=== PATIENT | female | born 1940 | race Caucasian/White ===

== ENCOUNTER 2017-08-18 21:20 | Emergency (ER) | payer MEDICARE, OTHER, SELFPAY | END 2017-08-19 00:16 | disposition home or self-care (01) | PROVIDERS: Emergency Provider Emergency Medicine; Family Provider Internal Medicine Adolescent Medicine; Visit Provider Emergency Medicine | DX: J18.1 Lobar pneumonia, unspecified organism (principal); F17.210 Nicotine dependence, cigarettes, uncomplicated; Z79.899 Other long term (current) drug therapy; I10 Essential (primary) hypertension; E78.5 Hyperlipidemia, unspecified; J44.9 Chronic obstructive pulmonary disease, unspecified; Z88.0 Allergy status to penicillin; Z88.6 Allergy status to analgesic agent | CPT/HCPCS: 71010; 80053; 82550; 82553; 84484; 85025; 87070; 87205; 93005; 96365; 96367; 96374; 96375; 99284; J1956 ==

== ENCOUNTER 2017-10-22 14:05 | Emergency (ER) | payer MEDICARE, OTHER, SELFPAY ==
[2017-10-22 14:16] VITALS: BP 140/55; PULSE 81; RESP 20; TEMP 36.7; O2SAT 95; BMI 18.4
--- NOTE | 2017-10-22 14:27 | XR_ITS ---
XR chest 2V HISTORY: ITS.REASON: prod cough ORDERING PHYSICIAN: ElisaShaunna Salcedo PATIENT AGE: 77 years COMPARISON: 08/18/2017 FINDINGS: The cardiomediastinal silhouette and pulmonary vascularity are within normal limits. Previously noted pneumonia within the lingula has shown improvement with some minimal residual density present in the lingula. There is now patchy infiltrate in the right perihilar region felt to be in the right middle lobe anteriorly. Parenchymal opacity is present in the left apex as well and has developed since the previous exam. There is a small right pleural effusion. No acute bony anomalies. IMPRESSION: 1. Right middle lobe pneumonia with small right effusion. 2. Improving lingular pneumonia. 3. Nonspecific parenchymal opacity left apex which could be due to an area of infiltrate or even developing nodule or scar. Follow-up recommended. If this persists, CT may be needed for further evaluation
[2017-10-22 14:45] LABS: Basophils % 0.3 % (0.1-2.0); Eosinophils # 0.1 K/mm3 (0.0-0.4); Eosinophils % 0.9 % (0.1-12.0); Hematocrit 35.4 % (37.0-47.0); Hemoglobin 11.7 g/dL (12.2-16.2); Lymphocytes # 1.3 K/mm3 (0.7-4.5); Lymphocytes % 15.4 K/mm3 (10-50); Mean Corpuscular Hemoglobin 28.8 pg (27.0-31.2); Mean Platelet Volume 8.3 fl (7.4-10.4); Monocytes # 0.5 K/mm3 (0.1-1.0); Neutrophils # 6.4 K/mm3 (1.8-7.8); Neutrophils % 77.5 % (37.0-80.0); Platelet Count 174 K/mm3 (142-424); Red Blood Count 4.06 M/mm3 (4.20-5.40); Red Cell Distribution Width 13.9 % (11.5-17.5); White Blood Count 8.3 K/mm3 (4.8-10.8)
--- NOTE | 2017-10-22 15:01 | HMH.EDGENADL ---
ED Disposition Clinical Impression: Pneumonia, community acquired Qualifiers: Laterality: right Lung location: lower lobe of lung Qualified Code(s): J18.1 - Lobar pneumonia, unspecified organism Disposition: Home, Self-Care Condition on Discharge: Good Instructions: DI for Pneumonia -- Adult Additional Instructions: Continue oxygen and nebulizer treatments at home. Additional instructions for PNEUMONIA: See your physician as soon as possible for further evaluation. Return immediately if you have an uncontrollable fever greater than 102 degrees, difficulty breathing or shortness of breath, persistent vomiting, or severe chest pain. Prescriptions: Benzonatate [Tessalon Perle 100mg Cap] 100 mg PO TIDP PRN #20 cap PRN Reason: Cough levoFLOXacin [Levaquin 750mg tablet] 750 mg PO DAILY #5 tab Referrals: Provider,Referral, MD [Primary Care Provider] - (see your primary care provider in 2 days) - Critical Care Critical Care Time: No Attestation: On 10/22/17, the high probability of a clinically significant, sudden or life threatening deterioration of the following system(s) required my full and direct attention, intervention and personal management. The time I documented below is in addition to time spent performing reported procedures but includes the following listed in this critical care notation. Medical Decision Making Vital Signs: 10/22/17 14:16 10/22/17 15:32 Temperature 98.0 F Temperature Source Oral Pulse Rate [Right Brachial] 81 77 Respiratory Rate 20 20 Blood Pressure [Right Arm] 140/55 118/75 Blood Pressure Mean [Right Arm] 83 89 Blood Pressure Source [Right Arm] Automatic Cuff Automatic Cuff Blood Pressure Position [Right Arm] Sitting Sitting 02 Sat by Pulse Oximetry 95 97 Oxygen Delivery Method Room Air Nasal Cannula Oxygen Flow Rate (LPM) 2 - Lab Data Lab results reviewed: Yes: I reviewed the patient's lab results. Lab Results 10/22/17 14:25: WBC 8.3, RBC 4.06 L, Hgb 11.7 L, Hct 35.4 L, MCV 87.0, MCH 28.8, MCHC 33.0, RDW 13.9, Plt Count 174, MPV 8.3, Neut % (Auto) 77.5, Lymph % (Auto) 15.4, Bucks % (Auto) 6.0, Eos % (Auto) 0.9, Baso % (Auto) 0.3, Neut # (Auto) 6.4, Lymph # (Auto) 1.3, Bucks # (Auto) 0.5, Eos # (Auto) 0.1, Baso # (Auto) 0.0 10/22/17 14:25: Sodium 136, Potassium 3.5, Chloride 99, Carbon Dioxide 29, Anion Gap 11.5, BUN 19 H, Creatinine 1.30 H, Estimated Creat Clear 31, Estimated GFR 40 L, Est GFR ( Amer) 48 L, Glucose 127 H, Calcium 8.6, Total Bilirubin 0.5, AST 22, ALT 29, Alkaline Phosphatase 131 H, Total Protein 7.3, Albumin 2.9 L, Globulin 4.4 H, Albumin/Globulin Ratio 0.7 L 10/22/17 14:25: Influenza Type A Ag Negative, Influenza Type B Ag Negative 10/22/17 14:25: Lactic Acid 0.8 Result diagrams: 10/22/17 14:25 10/22/17 14:25 Orders (Tests/Meds): ED MEDICATIONS Generic Name Dose Route Start Last Admin Trade Name Freq PRN Reason Stop Dose Admin Sodium Chloride 1,000 mls @ 999 mls/hr 10/22/17 15:00 10/22/17 14:56 Sod Chlor 0.9% 1000ml Bag IV 10/22/17 16:00 999 mls/hr .Q1H1M ROSELINE Administration Levofloxacin/Dextrose 750 mg in 150 mls @ 100 mls/hr 10/22/17 15:13 10/22/17 15:31 Levofloxacin 750mg/150ml Premix IV 10/22/17 16:42 100 mls/hr ONCE ONE Administration Protocol Discontinued Medications Generic Name Dose Route Start Last Admin Trade Name Freq PRN Reason Stop Dose Admin Sodium Chloride 500 mls @ 999 mls/hr 10/22/17 14:30 10/22/17 14:52 Sod Chlor 0.9% 1000ml Bag IV 10/22/17 15:00 Not Given .Q31M ROSELINE Sodium Chloride 500 mls @ 999 mls/hr 10/22/17 15:00 10/22/17 14:54 Sod Chlor 0.9% 1000ml Bag IV 10/22/17 15:30 Not Given .Q31M ROSELINE ORDERS Category Date Time Status Chest XR 2 view (NOT portable) [XR chest 2V] Stat Exams 10/22/17 14:27 Taken - Radiology Data #1 Image(s): Chest Image Reviewed: Yes I reviewed the patient's radiology results Patchy infiltrate right mid to l
[2017-10-22 15:03] LABS: Albumin Level 2.9 gm/dL (3.4-5.0); Blood Urea Nitrogen 19 mg/dL (7-18); Calcium 8.6 mg/dL (8.5-10.1); Creatinine Clearance Estimated 31 mL/min (0-300); Estimated Glomerular Filt Rate 40 ml/min (>60); GFR (African American) 48 ML/MIN (>60); Glucose 127 mg/dL (74-106)
[2017-10-22 15:04] LABS: Lactic Acid 0.8 mmol/L (0.4-2.0)
[2017-10-22 15:13] LABS: Alanine Aminotransferase 29 U/L (12-78); Albumin/Globulin Ratio 0.7 (1.1-1.8); Alkaline Phosphatase 131 U/L (46-116); Anion Gap 11.5 mEq/L (5-15); Aspartate Amino Transferase 22 U/L (15-37); Bilirubin,Total 0.5 mg/dL (0.2-1.0); Carbon Dioxide 29 mmol/L (21.0-32.0); Chloride 99 mmol/L (98-107); Globulin 4.4 gm/dl (1.3-3.2); Potassium 3.5 mmoL/L (3.5-5.1); Sodium 136 mmol/L (136-145); Total Protein,Serum 7.3 gm/dL (6.4-8.2)
[2017-10-22 15:32] VITALS: BP 118/75; PULSE 77; RESP 20; O2SAT 97
[2017-10-22 16:45] VITALS: BP 112/59; PULSE 73; RESP 20; TEMP 36.9; O2SAT 95
== END 2017-10-22 16:46 | disposition home or self-care (01) ==
LOC: UTC 14:15 → ER 14:16
PROVIDERS: Emergency Medicine; Emergency Provider Nurse Practitioner; Family Provider Internal Medicine Adolescent Medicine
DX: J18.1 Lobar pneumonia, unspecified organism (principal); Z88.6 Allergy status to analgesic agent; Z88.4 Allergy status to anesthetic agent; Z88.0 Allergy status to penicillin
CPT/HCPCS: 71046; 80053; 83605; 85025; 87275; 87276; 96365; 96367; 99284; J1956

== ENCOUNTER → 2017-11-11 10:33 | Outpatient (POV) | payer MEDICARE, OTHER, SELFPAY ==
--- NOTE | 2017-11-11 10:57 | XR_ITS ---
XR ribs RT min 3V w CXR1V HISTORY: Left-sided rib pain ITS.REASON: THORACIC BACK PAIN ORDERING PHYSICIAN: Sagar Ospina MD PATIENT AGE: 77 years COMPARISON: None FINDINGS: A frontal view of the chest shows changes of COPD. Coronary artery stent is present. Previously described pneumonia in the right lower lobe and left upper lobe have improved with some residual density in the right lung base medially nonspecific. No displaced rib fractures are evident. No destructive process. IMPRESSION: No acute finding of the left ribs
--- NOTE | 2017-11-11 10:58 | XR_ITS ---
EXAM: XR thoracic spine 3V HISTORY: ITS.REASON: THORACIC BACK PAIN COMPARISON: None FINDINGS: Normal alignment. No fracture or dislocation. No lytic or blastic change. There are mild degenerative changes of the midthoracic spine with slight decrease in the disc spaces and minimal osteophyte formation. There is minimal lower thoracic curvature convex right. IMPRESSION: 1. No acute finding. 2. Mild changes of the thoracic spine
[2017-11-11 11:24] LABS: Thyroid Stimulating Hormone 4.02 uIU/ml (0.358-3.740)
== END ==
PROVIDERS: Family Provider Internal Medicine Adolescent Medicine; Visit Provider Internal Medicine
DX: E03.9 Hypothyroidism, unspecified (principal); M54.6 Pain in thoracic spine; R07.81 Pleurodynia
CPT/HCPCS: 36415; 71101; 72072; 84443

== ENCOUNTER → 2017-11-21 12:37 | Outpatient (CLI) | payer MEDICARE, OTHER, SELFPAY ==
[2017-11-21 13:41] VITALS: PULSE 77; PULSE 81
[2017-11-21 14:31] VITALS: BP 125/66; BP 142/88; PULSE 72; PULSE 73; RESP 16; RESP 18; O2SAT 85; O2SAT 93
== END ==
PROVIDERS: Family Provider Internal Medicine Adolescent Medicine; PCP Internal Medicine Adolescent Medicine; Visit Provider Internal Medicine
DX: R06.02 Shortness of breath (principal); R91.8 Other nonspecific abnormal finding of lung field; J43.9 Emphysema, unspecified
CPT/HCPCS: 94060; 94618; 94640; 94726; 94729

== ENCOUNTER → 2017-11-24 10:30 | Outpatient (POV) | payer MEDICARE, OTHER, SELFPAY ==
[2017-11-24 10:45] VITALS: BP 137/53; PULSE 71; RESP 22; O2SAT 97; BMI 17.8
--- NOTE | 2017-11-24 12:11 | HMH.PMCON ---
Assessment and Plan (1) Sacroiliitis Current visit: Yes Status: Chronic Category: Medical Code(s): M46.1 - Sacroiliitis, not elsewhere classified (2) Thoracic back pain Current visit: Yes Status: Chronic Category: Medical Code(s): M54.6 - Pain in thoracic spine - Assessment and plan all Dx Assessment and Plan for all problems:: We will plan a right SI joint injection for this patient I believe that that would be beneficial for her. Patient unable to take medications at this time for her pain. We will also order a thoracic MRI to discern pathology of her thoracic back pain. I will follow-up with this patient after her injection or her MRI which ever comes first. This note was dictated using voice recognition software and may contain errors or omissions HPI - Data of Consult Consult date: 11/24/17 Requesting Physician: Dorita De Luna APRN Primary Care Provider: Tone Mensah MD Family Provider: Tone Mensah MD - Consult Narrative Reason for consult: Thoracic back pain and right hip pain History of present illness: Ms. Steve is a 77 year old female presents today for consult regarding her thoracic back pain in her right hip pain. Patient rates her pain a 4 out of 10 today. Patient states that her pain is in her mid back and happened after receiving antibiotics in a rehab facility in 2017. Patient states movement and inspiration makes it worse well nothing really decreases it. Patient states she does have some numbness and tingling in her left hand. Patient is not on any medication for the pain at this time. Patient has emphysema and COPD. She is still current smoker. Patient does have oxygen at home. Patient understands that medication increases her risks of her respiratory depression and she is interested in another modalities of treatment. Patient has not had an MRI of her thoracic spine. Patient does have extreme tenderness on palpation of her thoracic spine. Patient also has right SI joint pain. Patient states it does radiate into her leg at times. Patient has trouble sitting and standing for long periods of time. CC: Dorita De Luna APRN [facility] History I have reviewed the patient's past medical history: Yes Medical History: Reports:: Hyperlipidemia, Palpitations Denies:: Cancer, Diabetes Mellitus Type 1, Diabetes Mellitus Type 2 Other Medical History: Reports: Thyroid Disease Other Surgeries: Yes: Appendectomy, Thyroidectomy, Other (hysterectomy, cholecystectomy) Amputation: No - *Social History Educational Level: Completed High School Smoking Status: Current every day smoker Tobacco Type: cigarettes # Packs/Day (cigarettes): 1 Alcohol Intake: never Occupational Status: retired Housing: house - Psychiatric History Expresses thoughts of harming self/others: None Suicide Plan Description: No Plan *Family Hx:: Coronary Artery Disease, Heart Attack, Hypertension Review of Systems - Review of Systems ROS General: no recent weight change, no fever, no sleep disturbances Respiratory: Cough at times, history of recurring pulmonary infections Cardiovascular/Peripheral Vascular: No chest pain, No palpitations, no edema, no shortness of breath. Gastrointestinal: no new onset incontinence, normal bowel movements reported Genitourinary: no new onset incontinence Musculoskeletal: Thoracic back pain, right SI joint pain Psychiatric: normal mood/ affect, [denies depression], [denies anxiety] Neurological: [denies weakness in extremities], [denies balance issues] Meds Home Medications Medication Instructions Recorded Confirmed Type Levothyroxine Sodium 75 mcg PO DAILY 10/22/17 10/22/17 History [Levothyroxine 75mcg (0.075mg) Tab] Metoprolol Tartrate 50 mg PO DAILY 10/22/17 10/22/17 History Sertraline HCl [Zoloft 50mg tablet] 50 mg PO BID 10/22/17 10/22/17 History raNITIdine HCl [Zantac] 150 mg PO BID 10/22/17 10/22/17 History Atorvastatin Calcium [Atorva
--- NOTE | 2017-11-24 12:14 | P.CONS_ITS ---
Assessment and Plan (1) Sacroiliitis Current visit: Yes Status: Chronic Category: Medical Code(s): M46.1 - Sacroiliitis, not elsewhere classified (2) Thoracic back pain Current visit: Yes Status: Chronic Category: Medical Code(s): M54.6 - Pain in thoracic spine - Assessment and plan all Dx Assessment and Plan for all problems:: We will plan a right SI joint injection for this patient I believe that that would be beneficial for her. Patient unable to take medications at this time for her pain. We will also order a thoracic MRI to discern pathology of her thoracic back pain. I will follow-up with this patient after her injection or her MRI which ever comes first. This note was dictated using voice recognition software and may contain errors or omissions HPI - Data of Consult Consult date: 11/24/17 Requesting Physician: Dorita De Luna APRN Primary Care Provider: Tone Mensah MD Family Provider: Tone Mensah MD - Consult Narrative Reason for consult: Thoracic back pain and right hip pain History of present illness: Ms. Steve is a 77 year old female presents today for consult regarding her thoracic back pain in her right hip pain. Patient rates her pain a 4 out of 10 today. Patient states that her pain is in her mid back and happened after receiving antibiotics in a rehab facility in 2017. Patient states movement and inspiration makes it worse well nothing really decreases it. Patient states she does have some numbness and tingling in her left hand. Patient is not on any medication for the pain at this time. Patient has emphysema and COPD. She is still current smoker. Patient does have oxygen at home. Patient understands that medication increases her risks of her respiratory depression and she is interested in another modalities of treatment. Patient has not had an MRI of her thoracic spine. Patient does have extreme tenderness on palpation of her thoracic spine. Patient also has right SI joint pain. Patient states it does radiate into her leg at times. Patient has trouble sitting and standing for long periods of time. CC: Dorita De Luna APRN [facility] History I have reviewed the patient's past medical history: Yes Medical History: Reports:: Hyperlipidemia, Palpitations Denies:: Cancer, Diabetes Mellitus Type 1, Diabetes Mellitus Type 2 Other Medical History: Reports: Thyroid Disease Other Surgeries: Yes: Appendectomy, Thyroidectomy, Other (hysterectomy, cholecystectomy) Amputation: No - *Social History Educational Level: Completed High School Smoking Status: Current every day smoker Tobacco Type: cigarettes # Packs/Day (cigarettes): 1 Alcohol Intake: never Occupational Status: retired Housing: house - Psychiatric History Expresses thoughts of harming self/others: None Suicide Plan Description: No Plan *Family Hx:: Coronary Artery Disease, Heart Attack, Hypertension Review of Systems - Review of Systems ROS General: no recent weight change, no fever, no sleep disturbances Respiratory: Cough at times, history of recurring pulmonary infections Cardiovascular/Peripheral Vascular: No chest pain, No palpitations, no edema, no shortness of breath. Gastrointestinal: no new onset incontinence, normal bowel movements reported Genitourinary: no new onset incontinence Musculoskeletal: Thoracic back pain, right SI joint pain Psychiatric: normal mood/ affect, [denies depression], [denies anxiety] Neurological: [denies weakness in extremities], [denies balance issues] Meds
== END ==
PROVIDERS: Family Provider Internal Medicine Adolescent Medicine; PCP Internal Medicine Adolescent Medicine; Visit Provider Clinical Nurse Specialist Family Health
DX: M46.1 Sacroiliitis, not elsewhere classified (principal); M54.6 Pain in thoracic spine
CPT/HCPCS: 99202

== ENCOUNTER → 2017-11-26 15:49 | Outpatient (CLI) | payer MEDICARE, OTHER, SELFPAY ==
--- NOTE | 2017-11-26 15:52 | MR_ITS ---
MR thoracic spine wo con Ordering Physician: Rene Carballo MD Patient Age: 77 years: Female HISTORY: ITS.REASON: THORACIC BACK PAIN TECHNIQUE: Sagittal T1, T2, STIR. Axial T1 and T2 imaging through selected portions of mid and lower T-spine COMPARISON : FINDINGS The thoracic vertebral bodies show no compression fracture nor significant lesion. There are some scattered high signal areas at the vertebral bodies compatible with small meningioma formation. Most notable at the superior and inferior T12 level., With Each of these measuring 9 mm size . Upper T-spine unremarkable from C7/T1 down to T3/4 level. T4/5: small central disc protrusion likely yields the mildly elongated midline epidural density, which most likely reflects a mild disc protrusion. On axial images at this level this feature does focal indent the anterior aspect of the thecal sac at midline & just abuts and may very slightly flatten the anterior margin of the thoracic cord at this level.. T5-T6: suggestion of a small mixed disc protrusion to the right... This is more evident on axial views barely evident on sagittal slice 6.. April 2017 also shows a small spur to the right at this level which demonstrates that this is is mainly hard disc with small spur.. T6/7.. Minimal spurring just distal just superior to the tiny disc disc protrusion just to left of midline axial images. Negligible on sagittal view. However the CT chest from April 2017 shows the minimal spur at the left at this level as well C7/T8. Mild disc space narrowing but no protrusion T8/9 question scant disc bulge to the left. Negligible. Barely evident. T9-10. Disc intact unremarkable. T10-11. Question Subtle disc bulge to the left. Very minor as suggested on axial images. T11/12. Disc intact. T12/L1 disc intact. Only scant facet arthropathy towards the lower T-spine. Negligible. Thoracic cord appears normal in caliber and signal. ====IMPRESSION====== 1. No compression fracture nor No prominent findings . 2. There are Minimal Degenerative Disc observations:. Most notable is small central protrusion at T4/5 This small central disc protrusion at T 4/5 yields mild elongated midline epidural density,. Which slightly indents thecal sac at midline .T5/6. Tiny barely appreciable spur with tiny mixed hard disc right paracentral. Very minimal. . T6/7 minimal spur just to left of midline associated with a tiny mixed disc protrusion.. This mildly indents thecal sac to left. T6/7 (minor posterior spur seen on previous Apr 2017 CT chest) ... T8/9 perhaps Scant trace disc bulge the left.. Negligible
== END ==
PROVIDERS: Family Provider Internal Medicine Adolescent Medicine; PCP Internal Medicine Adolescent Medicine; Visit Provider Anesthesiology
DX: M54.6 Pain in thoracic spine (principal)
CPT/HCPCS: 72146

== ENCOUNTER → 2017-12-30 09:46 | Outpatient (POV) | payer MEDICARE, OTHER, SELFPAY ==
[2017-12-30 10:39] VITALS: BP 111/50; PULSE 69; RESP 18; TEMP 36.6; O2SAT 98; BMI 17.2
--- NOTE | 2017-12-30 10:55 | HMH.PAINSOAP ---
[facility] Pain Management SOAP Note Subjective:: Patient is a pleasant 77-year-old white female who presents today for follow-up after right SI joint. Patient states that she had 80% relief. Patient states he does have some residual pain. Patient states that this is the first time she is able to go upstairs in two years. Patient is unable to take NSAIDS due to allergies. Patient has tried physical therapy and continues to do home stretching exercises. ROS General: no recent weight change, no fever, no sleep disturbances Respiratory: no cough, no shortness of air, no recurring pulmonary infections Cardiovascular/Peripheral Vascular: No chest pain, No palpitations, no edema, no shortness of breath. Gastrointestinal: no incontinence, normal bowel movements reported Genitourinary: no incontinence Musculoskeletal: Back pain, right SI joint pain Psychiatric: normal mood/ affect, [denies depression], [denies anxiety] Neurological: [denies weakness in extremities], [denies balance issues] Objective:: Physical Exam General: Alert and oriented x3, no acute distress, pleasant and cooperative, [on room air] Lungs: Resps E/U, Symmetrical chest expansion, Eyes: PERRL Musculoskeletal: Flexion and extension of lumbar spine somewhat guarded secondary to pain, deep tendon reflexes normal, strength in upper and lower extremities [5/5], [abnormal gait noted], positive Harris's test on the right side, extreme point tenderness over right SI joint Neurological: speech clear, development coach equal, no gross sensory deficits Assessment:: Right sacroiliitis Plan:: We will schedule a repeat right SI joint injection. Given the benefit that she received from the last one I believe that this may be helpful. Patient is unable to take NSAIDs due to allergies. Patient's tried and failed medications, stretching, physical therapy. Patient continues to be active. I will up with her after her second SI joint injection. This note was dictated using voice recognition software and may contain errors or omissions
--- NOTE | 2017-12-30 10:58 | P.CONS_ITS ---
[facility] Pain Management SOAP Note Subjective:: Patient is a pleasant 77-year-old white female who presents today for follow-up after right SI joint. Patient states that she had 80% relief. Patient states he does have some residual pain. Patient states that this is the first time she is able to go upstairs in two years. Patient is unable to take NSAIDS due to allergies. Patient has tried physical therapy and continues to do home stretching exercises. ROS General: no recent weight change, no fever, no sleep disturbances Respiratory: no cough, no shortness of air, no recurring pulmonary infections Cardiovascular/Peripheral Vascular: No chest pain, No palpitations, no edema, no shortness of breath. Gastrointestinal: no incontinence, normal bowel movements reported Genitourinary: no incontinence Musculoskeletal: Back pain, right SI joint pain Psychiatric: normal mood/ affect, [denies depression], [denies anxiety] Neurological: [denies weakness in extremities], [denies balance issues] Objective:: Physical Exam General: Alert and oriented x3, no acute distress, pleasant and cooperative, [ on room air] Lungs: Resps E/U, Symmetrical chest expansion, Eyes: PERRL Musculoskeletal: Flexion and extension of lumbar spine somewhat guarded secondary to pain, deep tendon reflexes normal, strength in upper and lower extremities [5/5], [abnormal gait noted], positive Harris's test on the right side, extreme point tenderness over right SI joint Neurological: speech clear, marketing sales supervisor equal, no gross sensory deficits Assessment:: Right sacroiliitis Plan:: We will schedule a repeat right SI joint injection. Given the benefit that she received from the last one I believe that this may be helpful. Patient is unable to take NSAIDs due to allergies. Patient's tried and failed medications , stretching, physical therapy. Patient continues to be active. I will up with her after her second SI joint injection. This note was dictated using voice recognition software and may contain errors or omissions
== END ==
PROVIDERS: Family Provider Internal Medicine Adolescent Medicine; PCP Internal Medicine Adolescent Medicine; Visit Provider Clinical Nurse Specialist Family Health
DX: M46.1 Sacroiliitis, not elsewhere classified (principal)
CPT/HCPCS: 99212

== ENCOUNTER → 2018-01-26 09:27 | Outpatient (POV) | payer MEDICARE, OTHER, SELFPAY ==
[2018-01-26 09:47] VITALS: BP 124/58; PULSE 72; RESP 18; O2SAT 99; BMI 18.0
--- NOTE | 2018-01-26 10:27 | HMH.PAINSOAP ---
[facility] Pain Management SOAP Note Subjective:: Patient is a pleasant 77-year-old white female who presents today after right SI joint injection. Patient states that she is doing quite well after this however patient has had a recent outbreak of shingles on her right buttock cheek. Patient has active blisters noted. Patient is not on any antivirals. Patient does have pain in her low back and down both of her legs. Patient is not on any gabapentin. Patient states she has taken in the past and had no side effects to it. ROS General: no recent weight change, no fever, no sleep disturbances Respiratory: no cough, no shortness of air, no recurring pulmonary infections Cardiovascular/Peripheral Vascular: No chest pain, No palpitations, no edema, no shortness of breath. Gastrointestinal: no incontinence, normal bowel movements reported Genitourinary: no incontinence Musculoskeletal: Low back pain, bilateral leg pain Skin: Active blisters noted on right buttock Psychiatric: normal mood/ affect Neurological: [denies weakness in extremities], [denies balance issues] Objective:: Physical Exam General: Alert and oriented x3, no acute distress, pleasant and cooperative, [on room air] Lungs: Resps E/U, Symmetrical chest expansion, Eyes: PERRL Musculoskeletal: Flexion and extension of lumbar spine somewhat guarded secondary to pain, deep tendon reflexes normal, strength in upper and lower extremities [5/5], [abnormal gait noted] Skin: Active blisters noted right buttock Neurological: speech clear, framing mechanic equal, no gross sensory deficits Assessment:: Shingles, degenerative disc disease of lumbar spine with lumbar radiculopathy Plan:: We will start the patient on acyclovir 100 mg 1 p.o. 5 times a day, gabapentin 100 mg twice daily. We will schedule her for an L5-S1 lumbar epidural steroid injection to help with the blisters. I will follow-up with the patient after her injection. We will reassess her symptoms at that time. This note was dictated using voice recognition software and may contain errors or omissions
--- NOTE | 2018-01-26 10:30 | P.CONS_ITS ---
[facility] Pain Management SOAP Note Subjective:: Patient is a pleasant 77-year-old white female who presents today after right SI joint injection. Patient states that she is doing quite well after this however patient has had a recent outbreak of shingles on her right buttock cheek. Patient has active blisters noted. Patient is not on any antivirals. Patient does have pain in her low back and down both of her legs. Patient is not on any gabapentin. Patient states she has taken in the past and had no side effects to it. ROS General: no recent weight change, no fever, no sleep disturbances Respiratory: no cough, no shortness of air, no recurring pulmonary infections Cardiovascular/Peripheral Vascular: No chest pain, No palpitations, no edema, no shortness of breath. Gastrointestinal: no incontinence, normal bowel movements reported Genitourinary: no incontinence Musculoskeletal: Low back pain, bilateral leg pain Skin: Active blisters noted on right buttock Psychiatric: normal mood/ affect Neurological: [denies weakness in extremities], [denies balance issues] Objective:: Physical Exam General: Alert and oriented x3, no acute distress, pleasant and cooperative, [ on room air] Lungs: Resps E/U, Symmetrical chest expansion, Eyes: PERRL Musculoskeletal: Flexion and extension of lumbar spine somewhat guarded secondary to pain, deep tendon reflexes normal, strength in upper and lower extremities [5/5], [abnormal gait noted] Skin: Active blisters noted right buttock Neurological: speech clear, 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 5 times a day, gabapentin 100 mg twice daily. We will schedule her for an L5-S1 lumbar epidural steroid injection to help with the blisters. I will follow-up with the patient after her injection. We will reassess her symptoms at that time. This note was dictated using voice recognition software and may contain errors or omissions
== END ==
PROVIDERS: Family Provider Internal Medicine Adolescent Medicine; PCP Internal Medicine Adolescent Medicine; Visit Provider Clinical Nurse Specialist Family Health
DX: B02.9 Zoster without complications (principal); M54.16 Radiculopathy, lumbar region
CPT/HCPCS: 99212

== ENCOUNTER → 2018-02-06 09:35 | Outpatient (POV) | payer MEDICARE, OTHER, SELFPAY ==
[2018-02-06 09:53] VITALS: BP 140/61; PULSE 66; RESP 18; TEMP 36.7; O2SAT 94; BMI 18.0
--- NOTE | 2018-02-06 10:00 | HMH.PAINSOAP ---
[facility] Pain Management SOAP Note Subjective:: This patient is a pleasant 77-year-old white female who we are treating for right-sided sacroiliitis and acute herpes zoster in the L5-S1 distribution over the right buttock. She received a lumbar epidural sympathetic block at L5-S1 at her last visit. Her shingles rash is dried completely pain is decreased significantly at least 80%. She only has slight pain which is very tolerable. Overall she is doing very well with almost complete resolution of her acute herpes zoster episode. Objective:: Alert and oriented ?3 in no acute distress. Rash is completely dried and almost resolved completely. Patient is not tender over that area. Assessment:: Acute herpes zoster in the L5-S1 distribution on the right side resolving Plan:: I am very pleased to see resolution of her acute herpes zoster episode. We will follow-up with her on the to address her right-sided sacroiliitis and right sided hip pain. I do believe that she may benefit from a repeat right SI joint injection in the future.
== END ==
PROVIDERS: PCP Internal Medicine Adolescent Medicine; Visit Provider Anesthesiology
DX: B02.9 Zoster without complications (principal)
CPT/HCPCS: 99212

== ENCOUNTER → 2018-02-16 13:44 | Outpatient (POV) | payer MEDICARE, OTHER, SELFPAY ==
[2018-02-16 13:53] VITALS: BP 120/65; PULSE 85; RESP 18; TEMP 36.3; O2SAT 94; BMI 17.6
--- NOTE | 2018-02-16 15:25 | P.CONS_ITS ---
[facility] Pain Management SOAP Note Subjective:: Patient is a pleasant 77-year-old white female who we are treating for right- sided sacroiliitis and acute herpes zoster. Patient had an L5-S1 lumbar epidural steroid injection and did extremely well with this. Her shingles have resolved. Patient's low back pain and leg pain has improved greatly. Patient is interested in why she is having thoracic back pain. On examination there is palpable trigger points in her thoracic paraspinous bilaterally. Patient rates her pain a 6 out of 10 today. Patient is interested in injective therapy to help with this. Patient has tried muscle relaxers in the past with no success. ROS General: no recent weight change, no fever, no sleep disturbances Respiratory: no cough, no shortness of air, no recurring pulmonary infections Cardiovascular/Peripheral Vascular: No chest pain, No palpitations, no edema, no shortness of breath. Gastrointestinal: no incontinence, normal bowel movements reported Genitourinary: no incontinence Musculoskeletal: Myofascial pain Psychiatric: normal mood/ affect Neurological: [denies weakness in extremities], [denies balance issues] Objective:: Physical Exam General: Alert and oriented x3, no acute distress, pleasant and cooperative, [ on room air] Lungs: Resps E/U, Symmetrical chest expansion, Eyes: PERRL Musculoskeletal: Flexion and extension of thoracic spine somewhat guarded secondary to pain, deep tendon reflexes normal, strength in upper and lower extremities [5/5], [abnormal gait noted], palpable trigger points noted in bilateral thoracic paraspinous Neurological: speech clear, 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 If the patient does not get much relief from this we may move forward with some imaging. Patient has tried and failed stretching therapies, medications, anti-inflammatories. Patient's done well with injective therapy in the past. I will follow-up with this patient after her injections. This note was dictated using voice recognition software and may contain errors or omissions
== END ==
PROVIDERS: Family Provider Internal Medicine Adolescent Medicine; PCP Internal Medicine Adolescent Medicine; Visit Provider Clinical Nurse Specialist Family Health
DX: B02.9 Zoster without complications (principal); M46.1 Sacroiliitis, not elsewhere classified
CPT/HCPCS: 99212

== ENCOUNTER 2018-02-24 11:45 | Day surgery (SDC) | payer MEDICARE, OTHER, SELFPAY ==
[2018-02-24 12:09] VITALS: BP 122/61; PULSE 79; RESP 18; TEMP 36.5; O2SAT 100; BMI 14.5
[2018-02-24 12:27] VITALS: BP 129/65; PULSE 78; RESP 18
[2018-02-24 12:36] VITALS: BP 128/78; PULSE 79; RESP 18; O2SAT 98
[2018-02-24 12:38] VITALS: BP 128/65; PULSE 78; RESP 18; O2SAT 99
--- NOTE | 2018-02-24 12:39 | HMH.PMPROC ---
- Procedure Date: 02/24/18 Time: 12:35 Anesthesiologist:: Dorita De Luna APRN Complications:: None Pre-procedure Diagnosis:: Myofascial pain syndrome Post-procedure Diagnosis:: Same Indications for Procedure:: Patient is a pleasant 77-year-old white female who presents today for trigger point injections of her bilateral thoracic paraspinous. Patient has had right SI joint injections along with an L5-S1 lumbar epidural injection and she has done quite well with this. Patient states most of her pain is in her thoracic spine. She states that she is having muscle spasms in these areas. Patient is interested in trigger point injections for the myofascial pain. Physical Exam General: Alert and oriented x3, no acute distress, pleasant and cooperative, [on room air] Lungs: Resps E/U, Symmetrical chest expansion, Eyes: PERRL Musculoskeletal: Flexion and extension of thoracic spine somewhat guarded secondary to pain, deep tendon reflexes normal, strength in upper and lower extremities [5/5], no gait noted, palpable trigger points noted in bilateral thoracic paraspinous Neurological: speech clear, cushion gum applicator equal, no gross sensory deficits Procedure Details:: Procedure: Informed consent was obtained and the risk and benefits of the procedure were explained to the patient. Patient was taken to the procedure room. Thoracic paraspinous bilaterally was prepped using ChloraPrep as a cleansing solution. Trigger points were palpated and marked. Each of these trigger points were injected with 3 mL's of bupivacaine 0.25 and Depo-Medrol 10 mg. A total of 80 milligrams of Depo-Medrol was used for 8 trigger point injections. Bandages were placed over the injection sites. Patient tolerated the procedure well with no complications. Plan and Disposition:: We will follow-up with the patient in 2 weeks she has been instructed to call the office if she has any issues prior to her next appointment. If patient does not get much relief from these injections we would order some thoracic imaging. This note was dictated using voice recognition software and may contain errors or omissions
[2018-02-24 12:44] VITALS: BP 115/52; PULSE 78; RESP 20; O2SAT 100
--- NOTE | 2018-02-24 12:49 | P.PCN_ITS ---
- Procedure Date: 02/24/18 Time: 12:35 Anesthesiologist:: Dorita De Luna APRN Complications:: None Pre-procedure Diagnosis:: Myofascial pain syndrome Post-procedure Diagnosis:: Same Indications for Procedure:: Patient is a pleasant 77-year-old white female who presents today for trigger point injections of her bilateral thoracic paraspinous. Patient has had right SI joint injections along with an L5-S1 lumbar epidural injection and she has done quite well with this. Patient states most of her pain is in her thoracic spine. She states that she is having muscle spasms in these areas. Patient is interested in trigger point injections for the myofascial pain. 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 Patient was taken to the procedure room. Thoracic paraspinous bilaterally was prepped using ChloraPrep as a cleansing solution. Trigger points were palpated and marked. Each of these trigger points were injected with 3 mL's of bupivacaine 0.25 and Depo-Medrol 10 mg. A total of 80 milligrams of Depo-Medrol was used for 8 trigger point injections. Bandages were placed over the injection sites. Patient tolerated the procedure well with no complications. Plan and Disposition:: We will follow-up with the patient in 2 weeks she has been instructed to call the office if she has any issues prior to her next appointment. If patient does not get much relief from these injections we would order some thoracic imaging. This note was dictated using voice recognition software and may contain errors or omissions
== END 2018-02-24 12:45 | disposition home or self-care (01) ==
LOC: SC.PAINP 11:47
PROVIDERS: Family Provider Internal Medicine Adolescent Medicine; PCP Internal Medicine Adolescent Medicine; Visit Provider Clinical Nurse Specialist Family Health
DX: M79.1 Myalgia (principal)
CPT/HCPCS: 20552

== ENCOUNTER → 2018-03-02 13:21 | Outpatient (POV) | payer MEDICARE, OTHER, SELFPAY ==
[2018-03-02 13:36] VITALS: BP 128/67; PULSE 78; RESP 18; O2SAT 98; BMI 16.7
--- NOTE | 2018-03-02 13:59 | HMH.PAINSOAP ---
[facility] Pain Management SOAP Note Subjective:: Patient is a pleasant 77-year-old white female who presents today due to increasing thoracic pain. Patient had trigger point injections of her thoracic paraspinous and is doing well in regard to myofascial pain. Patient states that the knots that were there previously have subsided. Patient states she is having a new pain mainly midline of her thoracic spine. Patient rates her pain at 8 out of 10 today. Patient does not have any imaging of her thoracic spine. Patient states that any twisting motion makes it worse. Patient is not currently on any anti-inflammatories we will start her on some today. ROS General: no recent weight change, no fever, no sleep disturbances Respiratory: no cough, no shortness of air, no recurring pulmonary infections Cardiovascular/Peripheral Vascular: No chest pain, No palpitations, no edema, no shortness of breath. Gastrointestinal: no incontinence, normal bowel movements reported Genitourinary: no incontinence Musculoskeletal: Back pain Psychiatric: normal mood/ affect Neurological: [denies weakness in extremities], [denies balance issues] Objective:: Physical Exam General: Alert and oriented x3, no acute distress, pleasant and cooperative, [on room air] Lungs: Resps E/U, Symmetrical chest expansion Eyes: PERRL Musculoskeletal: Flexion and extension of thoracic spine somewhat guarded secondary to pain, deep tendon reflexes normal, strength in upper and lower extremities [5/5], slightly antalgic gait noted Neurological: speech clear, assisted living assistant equal, no gross sensory deficits Assessment:: Thoracic back pain Plan:: We will schedule MRI for the patient to discern pathology I will follow-up with her after this. This note was dictated using voice recognition software and may contain errors or omissions
--- NOTE | 2018-03-02 14:02 | P.CONS_ITS ---
[facility] Pain Management SOAP Note Subjective:: Patient is a pleasant 77-year-old white female who presents today due to increasing thoracic pain. Patient had trigger point injections of her thoracic paraspinous and is doing well in regard to myofascial pain. Patient states that the knots that were there previously have subsided. Patient states she is having a new pain mainly midline of her thoracic spine. Patient rates her pain at 8 out of 10 today. Patient does not have any imaging of her thoracic spine. Patient states that any twisting motion makes it worse. Patient is not currently on any anti-inflammatories we will start her on some today. ROS General: no recent weight change, no fever, no sleep disturbances Respiratory: no cough, no shortness of air, no recurring pulmonary infections Cardiovascular/Peripheral Vascular: No chest pain, No palpitations, no edema, no shortness of breath. Gastrointestinal: no incontinence, normal bowel movements reported Genitourinary: no incontinence Musculoskeletal: Back pain Psychiatric: normal mood/ affect Neurological: [denies weakness in extremities], [denies balance issues] Objective:: Physical Exam General: Alert and oriented x3, no acute distress, pleasant and cooperative, [ on room air] Lungs: Resps E/U, Symmetrical chest expansion Eyes: PERRL Musculoskeletal: Flexion and extension of thoracic spine somewhat guarded secondary to pain, deep tendon reflexes normal, strength in upper and lower extremities [5/5], slightly antalgic gait noted Neurological: speech clear, 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 This note was dictated using voice recognition software and may contain errors or omissions
== END ==
PROVIDERS: Family Provider Internal Medicine Adolescent Medicine; PCP Internal Medicine Adolescent Medicine; Visit Provider Clinical Nurse Specialist Family Health
DX: M54.6 Pain in thoracic spine (principal)
CPT/HCPCS: 99212

== ENCOUNTER → 2018-03-05 14:44 | Outpatient (CLI) | payer MEDICARE, OTHER, SELFPAY ==
--- NOTE | 2018-03-05 14:47 | MR_ITS ---
MR thoracic spine wo con HISTORY: Mid back pain worse on LT side. Worse when coughing. Symptoms X2YRS. No trauma, worsening mid back pain worse on the left ITS.REASON: WORSENING BACK PAIN ORDERING PHYSICIAN: Dorita De Luna PATIENT AGE: 77 years Comparison: 11-26-17 TECHNIQUE: Standard multiplanar multiecho sequences are performed without contrast. 3-D MIP and myelographic images are also rendered and reviewed FINDINGS: There is normal alignment. No acute fracture apparent. Small central disc protrusion with again noted at T4-T5 with some minimal superior extrusion without mass effect upon the cord. This does abut the anterior aspect of the cord centrally and is not significantly changed. T5-T6: Degenerative disc disease with small right paracentral disc osteophyte complex abutting the cord but without displacement T6-T7: Minimal left paracentral disc osteophyte complex unchanged without cord compression T8-T9: Small left foraminal disc protrusion with mild foraminal narrowing unchanged. No new abnormalities evident. There is mild multilevel disc desiccation and slight decrease in the disc spaces consistent with mild multilevel degenerative disc disease. IMPRESSION: 1. Overall no significant change in the mild diffuse degenerative disc disease of the thoracic spine. 2. No change small central disc protrusion/herniation with superior extrusion at T4-T5, small right paracentral disc osteophyte complex at T5-T6, small left paracentral disc osteophyte complex at T6-T7, and mild foraminal disc protrusion on the left at T8-T9. No impingement apparent
== END ==
PROVIDERS: Family Provider Internal Medicine Adolescent Medicine; PCP Internal Medicine Adolescent Medicine; Visit Provider Clinical Nurse Specialist Family Health
DX: M54.6 Pain in thoracic spine (principal)
CPT/HCPCS: 72146

== ENCOUNTER → 2018-03-17 10:03 | Outpatient (POV) | payer MEDICARE, OTHER, SELFPAY ==
[2018-03-17 10:28] VITALS: BP 130/63; PULSE 74; RESP 18; O2SAT 98; BMI 16.7
--- NOTE | 2018-03-17 10:39 | P.CONS_ITS ---
[facility] Pain Management SOAP Note Subjective:: Patient is a pleasant 77-year-old white female who presents today for follow-up after recent MRI. Patient is having thoracic back pain radiating into her left side. Patient does have a T6-T7 paracentral disc osteophyte on the left along with a T8-T9 disc protrusion on the left. There is no apparent impingement however the pain is radiating. Patient is interested in the thoracic epidural steroid injection she rates her pain a 7 out of 10 today. She states the pain on her left side is burning and itching at times. ROS General: no recent weight change, no fever, no sleep disturbances Respiratory: no cough, no shortness of air, no recurring pulmonary infections Cardiovascular/Peripheral Vascular: No chest pain, No palpitations, no edema, no shortness of breath. Gastrointestinal: no incontinence, normal bowel movements reported Genitourinary: no incontinence Musculoskeletal: Thoracic back pain Psychiatric: normal mood/ affect Neurological: [denies weakness in extremities], [denies balance issues] Objective:: Physical Exam General: Alert and oriented x3, no acute distress, pleasant and cooperative, [ on room air] Lungs: Resps E/U, Symmetrical chest expansion, Eyes: PERRL Musculoskeletal: Flexion and extension of thoracic spine somewhat guarded secondary to pain, deep tendon reflexes normal, strength in upper and lower extremities [5/5], [abnormal gait noted] Neurological: speech clear, right of way clearer equal, no gross sensory deficits Assessment:: 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 I will follow-up with the patient after her injection. Patient's tried and failed anti- inflammatories along with stretching therapies. Patient is not on any anticoagulation therapy. This note was dictated using voice recognition software and may contain errors or omissions
== END ==
PROVIDERS: Family Provider Internal Medicine Adolescent Medicine; PCP Internal Medicine Adolescent Medicine; Visit Provider Clinical Nurse Specialist Family Health
DX: M54.15 Radiculopathy, thoracolumbar region (principal)
CPT/HCPCS: 99212

== ENCOUNTER 2018-03-28 11:42 | Outpatient (CLI) | payer MEDICARE, OTHER, SELFPAY ==
[2018-03-28 12:00] VITALS: BP 123/59; PULSE 66; RESP 20; TEMP 36.4; O2SAT 95; BMI 17.4
[2018-03-28 14:45] VITALS: BP 123/59; PULSE 66; RESP 18; TEMP 36.4; O2SAT 95
== END 2018-03-28 14:45 | disposition home or self-care (01) ==
PROVIDERS: PCP Internal Medicine Adolescent Medicine; Visit Provider Internal Medicine Adolescent Medicine
DX: J44.9 Chronic obstructive pulmonary disease, unspecified (principal)
CPT/HCPCS: 96360; 96361

== ENCOUNTER 2018-03-29 21:18 | Inpatient (IN) ==
[2018-03-29 21:59] LABS: Hematocrit 38.4 % (37.0-47.0); Hemoglobin 12.3 g/dL (12.2-16.2); Lymphocytes % 11.7 K/mm3 (10-50); Mean Corpuscular HGB Conc 32.1 g/dL (31.8-35.4); Mean Corpuscular Hemoglobin 28.9 pg (27.0-31.2); Mean Corpuscular Volume 89.9 fl (81-99); Mean Platelet Volume 8.6 fl (7.4-10.4); Monocytes % 4.7 % (1.7-9.3); Neutrophils % 82.5 % (37.0-80.0); Platelet Count 237 K/mm3 (142-424); Red Blood Count 4.27 M/mm3 (4.20-5.40); Red Cell Distribution Width 15.2 % (11.5-17.5); White Blood Count 8.7 K/mm3 (4.8-10.8)
[2018-03-29 22:00] LABS: Basophils # 0.2 K/mm3 (0-0.2); Basophils % 0.2 % (0.1-2.0); Monocytes # 0.4 K/mm3 (0.1-1.0); Neutrophils # 7.2 K/mm3 (1.8-7.8)
[2018-03-29 22:24] LABS: Alanine Aminotransferase 42 U/L (12-78); Albumin Level 3.3 gm/dL (3.4-5.0); Albumin/Globulin Ratio 0.8 (1.1-1.8); Alkaline Phosphatase 186 U/L (46-116); Anion Gap 11.7 mEq/L (5-15); Aspartate Amino Transferase 13 U/L (15-37); Bilirubin,Total 0.2 mg/dL (0.2-1.0); Blood Urea Nitrogen 27 mg/dL (7-18); Calcium 9.3 mg/dL (8.5-10.1); Carbon Dioxide 30 mmol/L (21.0-32.0); Chloride 108 mmol/L (98-107); Creatine Kinase 49 U/L (26-192); Globulin 4.2 gm/dl (1.3-3.2); Glucose 136 mg/dL (74-106); Potassium 4.7 mmoL/L (3.5-5.1); Sodium 145 mmol/L (136-145); Total Protein,Serum 7.5 gm/dL (6.4-8.2)
--- NOTE | 2018-03-29 22:25 | Emergency Department Note ---
ED Disposition Clinical Impression: COPD (chronic obstructive pulmonary disease) with acute bronchitis, Renal insufficiency Chest pain Qualifiers: Chest pain type: unspecified Qualified Code(s): R07.9 - Chest pain, unspecified Disposition: Admitted as Observation Condition on Discharge: Good Referrals: Tone Mensah MD [Primary Care Provider] - - Critical Care Critical Care Time: No Attestation: On 03/29/18, the high probability of a clinically significant, sudden or life threatening deterioration of the following system(s) required my full and direct attention, intervention and personal management. The time I documented below is in addition to time spent performing reported procedures but includes the following listed in this critical care notation. Medical Decision Making - Medical Records Medical records reviewed: Yes: I reviewed the patient's medical records. - Andrea Inquiry Pt receiving controlled substance: No Vital Signs: 03/29/18 21:21 03/29/18 21:59 Temperature 98.7 F Temperature Source Oral Pulse Rate 85 Pulse Rate [Right Radial] 80 Respiratory Rate 20 Blood Pressure [Right Arm] 154/86 Blood Pressure Mean [Right Arm] 108 02 Sat by Pulse Oximetry 98 - Lab Data Lab results reviewed: Yes: I reviewed the patient's lab results. Lab Results 03/29/18 21:42: WBC 8.7, RBC 4.27, Hgb 12.3, Hct 38.4, MCV 89.9, MCH 28.9, MCHC 32.1, RDW 15.2, Plt Count 237, MPV 8.6, Neut % (Auto) 82.5 H, Lymph % (Auto) 11.7, [place] % (Auto) 4.7, Eos % (Auto) 0.0 L, Baso % (Auto) 0.2, Neut # (Auto) 7.2, Lymph # (Auto) 1.0, [place] # (Auto) 0.4, Eos # (Auto) 0.0, Baso # (Auto) 0.2 03/29/18 21:42: Sodium 145, Potassium 4.7, Chloride 108 H, Carbon Dioxide 30, Anion Gap 11.7, BUN 27 H, Creatinine 1.26 H, Estimated Creat Clear 30, Estimated GFR 41 L, Est GFR ( Amer) 50 L, Glucose 136 H, Calcium 9.3, Total Bilirubin 0.2, AST 13 L, ALT 42, Alkaline Phosphatase 186 H, Total Creatine Kinase 49, CK-MB (CK-2) 0.6, CK-MB (CK-2) Rel Index 1.2, Troponin I < 0.02, Total Protein 7.5, Albumin 3.3 L, Globulin 4.2 H, Albumin/Globulin Ratio 0.8 L 03/29/18 21:42: Lactate 2.0 Result diagrams: 03/29/18 21:42 03/29/18 21:42 Orders (Tests/Meds): ED MEDICATIONS Generic Name Dose Route Start Last Admin Trade Name Freq PRN Reason Stop Dose Admin Sodium Chloride 3 ml 03/29/18 21:30 Sodium Chloride 3% 15ml Neb IH 04/28/18 21:29 ONCE PRN INDUCE SPUTUM COLLECTION ORDERS Category Date Time Status XR chest 2V Stat Exams 03/29/18 21:29 Taken Blood Culture Stat Micro 03/29/18 21:42 Received Sputum Culture & Gram Stain Stat Micro 03/29/18 21:50 Received - Radiology Data #1 Image(s): Chest Image Reviewed: Yes I reviewed the patient's radiology image Preliminary Findings: Abnormal (copd) - ECG Data Tracing #1 I reviewed this ECG and interpreted as documented below: Normal Sinus Rhythm: Yes Ischemic changes: non-specific ST-T wave changes - Physician Consults Physician Consulted: gena Resp/SOB HPI - General Chief Complaint: Upper Respiratory Infection Stated Complaint: Swelling of feet and legs, coughing, unstable Time Seen by Provider: 03/29/18 22:25 Mode of Arrival: Family Vehicle Source of Information: Patient, Spouse, Medical Record Limitations: No Limitations Description of Symptoms (Recalled from ER Triage Doc. by RN): productive cough with yellow sputum x 2 weeks, fever on and off. pt states she has bad copd. - History of Present Illness pt with prod cough over the last few days and has hx of copd and was seen this week by pcp and placed on abx and has continued sx and had neck and lt shoulder pain and presented to ed for eval MD Complaint: shortness of breath, cough, chest pain Onset (ago): day(s) Severity: moderate Known history of: COPD Associated symptoms: chest pain, cough, sputum production - Related Data Home Medications Medication Instructions Recorded Confirmed Levothyroxine Sodium 75 mcg PO DAILY 10/22/17 03/29/18 [Levothyroxine 75mcg (0.075mg) Tab] Metoprolol Tartrate 50 mg PO DAILY 10/22/17 03/29/18 Sertraline HCl [Zoloft 50mg tablet] 50 mg PO DAILY 10/22/17 03/29/18 Atorvastatin Calcium [Atorvastatin 20 mg PO DAILY 11/24/17 03/29/18 20mg Tab] diphenhydrAMINE HCl [Benadryl] 25 mg PO DAILY 11/24/17 03/29/18 Aspirin [Aspir 81] 81 mg PO DAILY 01/30/18 03/29/18 raNITIdine HCl [Acid Control] 150 mg PO BID 01/30/18 03/29/18 Allergies Allergy/AdvReac Type Severity Reaction Status Date / Time aspirin [ASPIRIN] Allergy Intermediate I-ITCHING Verified 03/29/18 21:28 Penicillins [PENICILLINS] Allergy Intermediate I-RASH Verified 03/29/18 21:28 acetaminophen [From PERCOCET] Allergy Unknown Verified 03/29/18 21:28 oxycodone [From PERCOCET] Allergy Unknown Verified 03/29/18 21:28 hydrocodone [From Lortab] Allergy Verified 03/29/18 21:28 tramadol Allergy Verified 03/29/18 21:28 EGGS (FOOD) Allergy Mild NA-NAUSEA/V Uncoded 08/12/17 15:12 OMITING [facility] History I have reviewed the patient's past medical history: Yes Medical History: Reports:: Coronary Artery Disease, Hyperlipidemia, Hypertension , Palpitations Denies:: Cancer, Diabetes Mellitus Type 1, Diabetes Mellitus Type 2, MRSA, Seizures Other Medical History: Reports: Thyroid Disease Other Surgeries: Yes: Appendectomy, Cholecystectomy, Hysterectomy-Total, Thyroidectomy, Other (hysterectomy, back surgery) Amputation: No Fractures: No - Social History Smoking Status: Current every day smoker Tobacco Type: cigarettes # Packs/Day (cigarettes): 1 Alcohol Intake: never Occupational Status: retired Housing: house Household Members: family - Psychiatric History Expresses thoughts of harming self/others: None Suicide Plan Description: No Plan Family Hx:: Coronary Artery Disease, Heart Attack, Hypertension ROS Obtained: Yes All systems reviewed & no additional complaints - Constitutional Constitutional: Denies fever(s) - Eyes Eyes: Denies change in vision - ENT Ears, Nose, Mouth, and Throat: Denies sore throat - Cardiovascular Cardiovascular: Reports chest pain - Respiratory Respiratory: Yes as per HPI, Yes cough, Yes dyspnea, No coughing up blood - Gastrointestinal Gastrointestingal: Denies: abdominal pain - Genitourinary Female Genitourinary: Denies hematuria - Musculoskeletal Musculoskeletal: Denies joint pain, Denies joint swelling - Integumentary/Breasts Skin/Breast: Denies rash - Neurologic Neurologic: Denies seizure-like activity Physical Exam - General General appearance: alert, in no apparent distress - Head Head exam: normocephalic - Eye Eye exam: Present: PERRL, EOMI - ENT ENT exam: Present: mucous membranes dry - Neck Neck exam: Present: trachea midline - Respiratory Respiratory exam: Present: other (bilat rhonchi). Absent: respiratory distress - Cardiovascular Cardiovascular exam: Present: regular rate, systolic murmur, +S4 - Abdominal Exam Abdominal exam: Present: soft - Extremities Exam Extremities exam: Absent: calf tenderness - Neurological Exam Neurological exam: Present: alert, oriented X3, CN II-XII intact - Psychiatric Psychiatric exam: Present: normal affect - Skin Skin exam: Absent: rash
[2018-03-30 05:54] LABS: Red Blood Count 3.46 M/mm3 (4.20-5.40); White Blood Count 6.4 K/mm3 (4.8-10.8)
[2018-03-30 05:55] LABS: Basophils % 0.2 % (0.1-2.0); Eosinophils % 0.1 % (0.1-12.0); Hematocrit 30.6 % (37.0-47.0); Lymphocytes # 0.7 K/mm3 (0.7-4.5); Lymphocytes % 10.2 K/mm3 (10-50); Mean Corpuscular HGB Conc 32.6 g/dL (31.8-35.4); Mean Corpuscular Hemoglobin 28.8 pg (27.0-31.2); Mean Corpuscular Volume 88.3 fl (81-99); Mean Platelet Volume 8.4 fl (7.4-10.4); Monocytes # 0.1 K/mm3 (0.1-1.0); Monocytes % 1.7 % (1.7-9.3); Neutrophils # 5.6 K/mm3 (1.8-7.8); Neutrophils % 87.3 % (37.0-80.0); Platelet Count 184 K/mm3 (142-424); Red Cell Distribution Width 15.2 % (11.5-17.5)
[2018-03-30 06:00] LABS: Blood Urea Nitrogen 27 mg/dL (7-18); Carbon Dioxide 27 mmol/L (21.0-32.0); Chloride 110 mmol/L (98-107); Glucose 134 mg/dL (74-106); Sodium 141 mmol/L (136-145)
[2018-03-30 06:06] LABS: Calcium 8.3 mg/dL (8.5-10.1)
[2018-03-30 07:03] LABS: Lymphocytes % 6 % (10-50); Neutrophils % 94 % (42-76); RBC Morphology Normal; Total Cells Counted 100
--- NOTE | 2018-03-30 07:22 | History & Physical Report ---
*Admission Date: 03/29/18 *Chief complaint: Shortness of air and cough *History of present illness: 77-year-old white female with long history of emphysema, nebulizer requiring at home with frequent exacerbations and significant ongoing cigarette use who presented to the emergency department yet late yesterday evening with coughing and shortness of air. Had failed outpatient therapy begun 2 days ago with levofloxacin and p.o. prednisone. She was admitted. This morning she feels a little bit, continues to feel congested and short of air. [facility] History I have reviewed the patient's past medical history: Yes Medical History: Reports:: Coronary Artery Disease, Hyperlipidemia, Hypertension , Palpitations Denies:: Cancer, Diabetes Mellitus Type 1, Diabetes Mellitus Type 2, MRSA, Seizures Other Medical History: Reports: Cataracts, Thyroid Disease Other Surgeries: Yes: Appendectomy, Cardiac Catheterization, Cholecystectomy, Hysterectomy-Total, Thyroidectomy, Other (back surgery) Amputation: No Fractures: No - *Social History Educational Level: Completed High School Smoking Status: Current every day smoker Tobacco Type: cigarettes # Packs/Day (cigarettes): 0 #Yrs smoked (if former smoker): 60 Alcohol Intake: never Occupational Status: retired Housing: house Household Members: family - Psychiatric History Expresses thoughts of harming self/others: None Suicide Plan Description: No Plan *Family Hx:: Coronary Artery Disease, Heart Attack, Hypertension Review of Systems - Review of Systems Review of systems:: pertinent systems reviewed and negative unless documented below - Constitutional Reports anorexia, Reports fatigue, Reports headache(s), Denies fever(s) - Eyes Denies blind spots, Denies blurry vision, Denies change in vision - ENT Denies abnormal hearing - *Cardiovascular Reports shortness of breath, Reports shortness of breath with activity, Denies irregular heart rhythm, Denies leg swelling - *Respiratory Reports change in phlegm color, Reports chest congestion, Reports cough - *Gastrointestinal Denies abdominal pain, Denies bloating - *Neurologic Denies seizure-like activity Meds Home Medications Medication Instructions Recorded Confirmed Type Levothyroxine Sodium 75 mcg PO DAILY 10/22/17 03/29/18 History [Levothyroxine 75mcg (0.075mg) Tab] Metoprolol Tartrate 50 mg PO DAILY 10/22/17 03/29/18 History Atorvastatin Calcium [Atorvastatin 20 mg PO DAILY 11/24/17 03/29/18 History 20mg Tab] diphenhydrAMINE HCl [Benadryl] 25 mg PO HS 11/24/17 03/29/18 History Aspirin [Aspir 81] 81 mg PO DAILY 01/30/18 03/29/18 History raNITIdine HCl [Acid Control] 150 mg PO BID 01/30/18 03/29/18 History Miscellaneous [Unknown Home 0 each NOTAPPLIC CONSULT PHARMACY 03/30/18 03/30/18 History Medication] Allergies Allergy/AdvReac Type Severity Reaction Status Date / Time aspirin [ASPIRIN] Allergy Intermediate I-ITCHING Verified 03/29/18 21:28 Penicillins [PENICILLINS] Allergy Intermediate I-RASH Verified 03/29/18 21:28 acetaminophen [From PERCOCET] Allergy Unknown Verified 03/29/18 21:28 oxycodone [From PERCOCET] Allergy Unknown Verified 03/29/18 21:28 hydrocodone [From Lortab] Allergy Verified 03/29/18 21:28 tramadol Allergy Verified 03/29/18 21:28 EGGS (FOOD) Allergy Mild NA-NAUSEA/V Uncoded 08/12/17 15:12 OMITING Exam Vital signs and Labs for Last 24 Hours: Temp Pulse Resp BP Pulse Ox 98.1 F 75 20 109/54 93 L 03/30/18 03:49 03/30/18 06:08 03/30/18 03:49 03/30/18 03:49 03/30/18 06:08 Laboratory Results - last 24 hr 03/29/18 21:42: WBC 8.7, RBC 4.27, Hgb 12.3, Hct 38.4, MCV 89.9, MCH 28.9, MCHC 32.1, RDW 15.2, Plt Count 237, MPV 8.6, Neut % (Auto) 82.5 H, Lymph % (Auto) 11.7, [place] % (Auto) 4.7, Eos % (Auto) 0.0 L, Baso % (Auto) 0.2, Neut # (Auto) 7.2, Lymph # (Auto) 1.0, [place] # (Auto) 0.4, Eos # (Auto) 0.0, Baso # (Auto) 0.2 03/29/18 21:42: Sodium 145, Potassium 4.7, Chloride 108 H, Carbon Dioxide 30, Anion Gap 11.7, BUN 27 H, Creatinine 1.26 H, Estimated Creat Clear 30, Estimated GFR 41 L, Est GFR ( Amer) 50 L, Glucose 136 H, Calcium 9.3, Total Bilirubin 0.2, AST 13 L, ALT 42, Alkaline Phosphatase 186 H, Total Creatine Kinase 49, CK-MB (CK-2) 0.6, CK-MB (CK-2) Rel Index 1.2, Troponin I < 0.02, Total Protein 7.5, Albumin 3.3 L, Globulin 4.2 H, Albumin/Globulin Ratio 0.8 L 03/29/18 21:42: Lactate 2.0 03/29/18 23:40: Troponin I < 0.02 03/30/18 02:30: Troponin I < 0.02 03/30/18 05:16: Sodium 141, Potassium 4.0, Chloride 110 H, Carbon Dioxide 27, Anion Gap 8.0, BUN 27 H, Creatinine 1.19 H, Estimated Creat Clear 32, Estimated GFR 44 L, Est GFR ( Amer) 53 L, Glucose 134 H, Calcium 8.3 L D, Magnesium 1.8, Troponin I < 0.02 03/30/18 05:16: WBC 6.4 D, RBC 3.46 L, Hgb 10.0 L D, Hct 30.6 L, MCV 88.3, MCH 28.8, MCHC 32.6, RDW 15.2, Plt Count 184, MPV 8.4, Neut % (Auto) 87.3 H, Lymph % (Auto) 10.2, [place] % (Auto) 1.7, Eos % (Auto) 0.1, Baso % (Auto) 0.2, Neut # ( Auto) 5.6, Lymph # (Auto) 0.7, [place] # (Auto) 0.1, Eos # (Auto) 0.0, Baso # (Auto ) 0.0, Total Counted 100, Neutrophils % (Manual) 94 H, Lymphocytes % (Manual) 6 L, Platelet Estimate Normal, RBC Morphology Normal I & O for Last 24 hours: Intake & Output 03/27/18 03/28/18 03/29/18 03/30/18 11:59 11:59 11:59 11:59 Intake Total 100 / 100 Output Total 0 / 0 Balance 100 / 100 Weight 114 lb 6 oz Microbiology Reports for the Last 24 Hours: Microbiology 03/29/18 21:50 Sputum - Expectorated Sputum Gram Stain - Final Narrative: Patient is alert, pleasant, oriented 3. Seems congested in her nasal passages but oropharynx is clear. Lungs have tight air movement with minimal expiratory wheezing with forced expiration but fairly symmetric air entry with minimal rhonchi. No actual crackles. Heart rate regular. Abdomen soft, skin is warm and well-perfused, edema or clubbing. H&P: Result - Labs Labs: Short CBC 03/29/18 03/30/18 Range/Units 21:42 05:16 WBC 8.7 6.4 D (4.8-10.8) K/mm3 Hgb 12.3 10.0 L D (12.2-16.2) g/dL Hct 38.4 30.6 L (37.0-47.0) % Plt Count 237 184 (142-424) K/mm3 BMP 03/29/18 03/30/18 21:42 05:16 Sodium 145 141 Potassium 4.7 4.0 Chloride 108 H 110 H Carbon Dioxide 30 27 BUN 27 H 27 H Creatinine 1.26 H 1.19 H Glucose 136 H 134 H Calcium 9.3 8.3 L D Cardiac Enzymes 03/29/18 03/29/18 03/30/18 Range/Units 21:42 23:40 02:30 Total Creatine Kinase 49 (26-192) U/L CK-MB (CK-2) 0.6 (0.0-3.6) ng/ml Troponin I < 0.02 < 0.02 < 0.02 (0.00-0.06) ng/ml 03/30/18 Range/Units 05:16 Total Creatine Kinase (26-192) U/L CK-MB (CK-2) (0.0-3.6) ng/ml Troponin I < 0.02 (0.00-0.06) ng/ml Liver Function 03/29/18 Range/Units 21:42 Total Bilirubin 0.2 (0.2-1.0) mg/dL AST 13 L (15-37) U/L ALT 42 (12-78) U/L Alkaline Phosphatase 186 H (46-116) U/L Albumin 3.3 L (3.4-5.0) gm/dL Assessment and Plan (1) COPD (chronic obstructive pulmonary disease) with acute bronchitis Current visit: Yes Status: Acute Category: Medical Code(s): J44.0 - Chronic obstructive pulmonary disease with acute lower respiratory infection; J20.9 - Acute bronchitis, unspecified Exacerbation is failed outpatient therapy. Agree with admission with ceftriaxone and azithromycin since Levaquin had not been effective. Add Mucomyst for sputum clearance. (2) Renal insufficiency Current visit: Yes Status: Acute Category: Medical Code(s): N28.9 - Disorder of kidney and ureter, unspecified Stage I chronic kidney disease, present on admission. Watch carefully. (3) Pneumonia, community acquired Current visit: No Status: Acute Category: Medical Code(s): J18.9 - Pneumonia, unspecified organism Agree with above admission.
--- NOTE | 2018-03-30 08:57 | Pharmacy Consult Notes ---
[facility] Pharmacy VTE Monitoring - Patient Demographics Admission date: 03/30/18 Report Date: 03/30/18 Time: 08:57 Allergies/Adverse Reactions: Patient Allergies aspirin [ASPIRIN] Allergy (Intermediate, Verified 03/29/18 21:28) I-ITCHING Penicillins [PENICILLINS] Allergy (Intermediate, Verified 03/29/18 21:28) I-RASH oxycodone [From PERCOCET] Allergy (Unknown, Verified 03/30/18 07:54) Gastrointestinal Upset egg Allergy (Verified 03/30/18 07:54) Vomiting hydrocodone [From Lortab] Allergy (Verified 03/30/18 07:54) Gastrointestinal Upset tramadol Allergy (Verified 03/30/18 07:54) Unknown allergy reaction Height: 1.7 m Weight: 51.88 kg Patient Problems: Current Active Problems COPD (chronic obstructive pulmonary disease) with acute bronchitis (Acute) Renal insufficiency (Acute) Chest pain (Acute) - VTE Risk Labs: VTE Related Lab Results Hgb 10.0 g/dL (12.2-16.2) L D 03/30/18 05:16 Hct 30.6 % (37.0-47.0) L 03/30/18 05:16 Plt Count 184 K/mm3 (142-424) 03/30/18 05:16 BUN 27 mg/dL (7-18) H 03/30/18 05:16 Creatinine 1.19 mg/dL (0.55-1.02) H 03/30/18 05:16 Estimated Creat Clear 32 mL/min (0-300) 03/30/18 05:16 Was VTE Risk Assessment Performed: Yes VTE Score: 8 VTE Risk Level: Moderate Risk - Prophylaxis VTE Prophylaxis Ordered?: Yes Types of VTE Prophylaxis: TEDS Knee High Location of Applied Device: Bilateral Lower Extremeties
[2018-03-31 06:07] LABS: Basophils % 0.1 % (0.1-2.0); Eosinophils % 0.2 % (0.1-12.0); Hematocrit 32.4 % (37.0-47.0); Hemoglobin 10.6 g/dL (12.2-16.2); Lymphocytes # 0.7 K/mm3 (0.7-4.5); Lymphocytes % 8.6 K/mm3 (10-50); Mean Corpuscular HGB Conc 32.6 g/dL (31.8-35.4); Mean Corpuscular Hemoglobin 29.3 pg (27.0-31.2); Mean Corpuscular Volume 89.9 fl (81-99); Mean Platelet Volume 7.8 fl (7.4-10.4); Monocytes # 0.3 K/mm3 (0.1-1.0); Neutrophils % 87.2 % (37.0-80.0); Platelet Count 178 K/mm3 (142-424); Red Cell Distribution Width 15.5 % (11.5-17.5)
[2018-03-31 06:32] LABS: Calcium 8.2 mg/dL (8.5-10.1)
[2018-03-31 07:39] LABS: Lymphocytes % 12 % (10-50); Neutrophils % 87 % (42-76); Total Cells Counted 100
[2018-03-31 07:40] LABS: RBC Morphology Normal
--- NOTE | 2018-03-31 10:39 | Consult Report ---
*Admission Date: 03/30/18 *Chief complaint: I'm coughing and so weak. *History of present illness: Ms. Steve is a 77-year-old woman who has mild to moderate chronic obstructive pulmonary disease with extensive emphysema on CT scan. She has continued to smoke about one half package of cigarettes daily and was still smoking when I last saw her in October. This past year, she has been more symptomatic than she had been and had an episode of pneumonia in September. At the time I evaluated her in October, she was complaining mostly of midthoracic pain radiating to the left side. She had a daily cough which was productive of small amounts of clear sputum and, although she was quite limited in her daily activities, pain was the major reason, not dyspnea. The pain persisted and she apparently has been told that it is related to a herniated disc. Another problem is weight loss this past year and she had lost about 9 pounds since the prior visit. Weight loss has continued, she told me and is associated with a poor appetite. Ms. Steve was on different inhalers, perhaps because of cost and most recently she has been using Breo and Spiriva. She wears O2 intermittently at home. She was in her usual state of health until about 3 weeks ago when she developed fever, chills, profound fatigue and increased shortness of breath associated with more cough which was productive of thick, yellowish sputum. She did not recover with outpatient antibiotic and corticosteroid therapy and was admitted here 2 days ago. With antibiotics and corticosteroids, she perhaps feels a little better but is still profoundly fatigued. Her appetite has dramatically improved on the corticosteroids. She has had no chest pain. She was troubled by diffuse headache which, although improved, is still present. Ms. Steve has a history of GERD which is still prominent. She told me she had had a colonoscopy within the last year and it was unremarkable. [facility] History Medical History: Reports:: Coronary Artery Disease, Hyperlipidemia, Hypertension , Palpitations Denies:: Cancer, Diabetes Mellitus Type 1, Diabetes Mellitus Type 2, MRSA, Seizures Other Medical History: Reports: Cataracts, Thyroid Disease Other Surgeries: Yes: Appendectomy, Cardiac Catheterization, Cholecystectomy, Hysterectomy-Total, Thyroidectomy, Other (back surgery) Amputation: No Fractures: No - *Social History Educational Level: Completed High School Smoking Status: Current every day smoker Tobacco Type: cigarettes # Packs/Day (cigarettes): 0 #Yrs smoked (if former smoker): 60 Alcohol Intake: never Occupational Status: retired Housing: house Household Members: family Comment: Ms. Steve lives with her son and his family. They are in a 3 bedroom house and she has her own small room with a private bath, I believe. However, there are 8 others in that same home, 3 of them very little and this is a stress for her. She is hoping to be able to live with a nephew who is buying a new home. - Psychiatric History Expresses thoughts of harming self/others: None Suicide Plan Description: No Plan *Family Hx:: Coronary Artery Disease, Heart Attack, Hypertension Review of Systems - Constitutional Comments: See HPI - Eyes Comments: Negative - ENT Comments: Negative - *Cardiovascular Comments: Negative - *Respiratory Comments: See HPI - *Gastrointestinal Comments: See HPI. No diarrhea or abdominal pain - *Genitourinary Comments: Negative - Integumentary/Breasts Comments: Negative - *Neurologic Reports headache(s), Reports weakness, Reports other, Denies abnormal hearing, Denies seizure-like activity Comments: Headache. - Psychiatric Comments: Anxiety and depression. Because of pain and dyspnea and her living conditions, she sometimes wishes she could . She is not suicidal. - Endocrine Reports cold intolerance - Hematologic/Lymphatic Comments: Negative - Allergic/Immunologic Comments: Negative Meds Home Medications Medication Instructions Recorded Confirmed Type Levothyroxine Sodium 75 mcg PO DAILY 10/22/17 03/29/18 History [Levothyroxine 75mcg (0.075mg) Tab] diphenhydrAMINE HCl [Benadryl] 25 mg PO DAILY 11/24/17 03/30/18 History Aspirin [Aspir 81] 81 mg PO DAILY 01/30/18 03/29/18 History raNITIdine HCl [Acid Control] 150 mg PO BID 01/30/18 03/29/18 History Albuterol Sulfate [Albuterol 2.5 mg IH TID 03/30/18 03/30/18 History 0.083% 2.5mg/3mL neb] Atorvastatin Calcium [Atorvastatin 80 mg PO DAILY 03/30/18 03/30/18 History 80mg Tab] Cyproheptadine HCl 4 mg PO BID 03/30/18 03/30/18 History Metoprolol Succinate 50 mg PO DAILY 03/30/18 03/30/18 History Mirtazapine [Remeron 15mg tablet] 15 mg PO HS 03/30/18 03/30/18 History Miscellaneous [Unknown Home 0 each NOTAPPLIC CONSULT PHARMACY 03/30/18 03/30/18 History Medication] Sertraline HCl [Zoloft 50mg tablet] 50 mg PO DAILY 03/30/18 03/30/18 History Tiotropium [place] [Spiriva 1 puff IH DAILY 03/30/18 03/30/18 History 18mcg/puff inhaler] Allergies Allergy/AdvReac Type Severity Reaction Status Date / Time aspirin [ASPIRIN] Allergy Intermediate I-ITCHING Verified 03/29/18 21:28 Penicillins [PENICILLINS] Allergy Intermediate I-RASH Verified 03/29/18 21:28 oxycodone [From PERCOCET] Allergy Unknown Gastrointestinal Verified 03/30/18 07: 54 Upset egg Allergy Vomiting Verified 03/30/18 07:54 hydrocodone [From Lortab] Allergy Gastrointestinal Verified 03/30/18 07:54 Upset tramadol Allergy Unknown Verified 03/30/18 07:54 allergy reaction Exam Vital signs and Labs for Last 24 Hours: Temp Pulse Resp BP Pulse Ox 98.0 F 77 20 103/53 92 L 03/31/18 08:00 03/31/18 08:00 03/31/18 08:00 03/31/18 08:00 03/31/18 08:00 Laboratory Results - last 24 hr 03/31/18 05:14: WBC 8.0, RBC 3.60 L, Hgb 10.6 L, Hct 32.4 L, MCV 89.9, MCH 29.3 , MCHC 32.6, RDW 15.5, Plt Count 178, MPV 7.8, Neut % (Auto) 87.2 H, Lymph % ( Auto) 8.6 L, [place] % (Auto) 4.0, Eos % (Auto) 0.2, Baso % (Auto) 0.1, Neut # ( Auto) 7.0, Lymph # (Auto) 0.7, [place] # (Auto) 0.3, Eos # (Auto) 0.0, Baso # (Auto ) 0.0, Total Counted 100, Neutrophils % (Manual) 87 H, Lymphocytes % (Manual) 12 , Atypical Lymphs % 1.0, Platelet Estimate Normal, RBC Morphology Normal 03/31/18 05:14: Sodium 143, Potassium 4.0, Chloride 111 H, Carbon Dioxide 28, Anion Gap 8.0, BUN 29 H, Creatinine 1.15 H, Estimated Creat Clear 34, Estimated GFR 46 L, Est GFR ( Amer) 55 L, Glucose 155 H, Calcium 8.2 L I & O for Last 24 hours: Intake & Output 03/28/18 03/29/18 03/30/18 03/31/18 23:59 23:59 23:59 23:59 Intake Total 100 / 100 780 / 780 1215 / 1215 Output Total 200 / 200 Balance 100 / 100 580 / 580 1215 / 1215 Weight 51.88 kg 51.88 kg Microbiology Reports for the Last 24 Hours: Microbiology 03/29/18 21:50 Sputum - Expectorated Sputum Gram Stain - Final 03/29/18 21:50 Sputum - Expectorated Sputum Sputum Culture - Preliminary Narrative: Ms. Steve is a thin, acutely and chronically ill-appearing woman who is sitting up in bed wearing oxygen at 2 L/min nasal cannula. She coughed intermittently during interview. She is alert and oriented and articulate. Vital signs: See above. HEENT: Sclerae clear; conjunctivae pink; EOMs full; PERRLA; external nares unremarkable; oropharynx is Mallampati IV and she is wearing dentures. There are no mucosal lesions. Neck: No adenopathy; carotids 2+ bilaterally. Chest: Symmetrical expansion; increased AP diameter; hyperresonance by percussion bilaterally; faint, low pitched end expiratory wheezes, especially at the bases. PMI near xiphoid; regular rhythm; no murmur Abdomen: Bowel sounds diminished; soft, nontender, no masses or organomegaly. Musculoskeletal: No juan arthritis Skin: Numerous lentigines on arms and legs. Ecchymoses on forearms. No rash. Neurological: Grossly intact Extremities: No clubbing or edema Internal Medicine - CN: Reslt - Labs CBC & Chem 7: 03/31/18 05:14 03/31/18 05:14 Labs: Short CBC 03/31/18 Range/Units 05:14 WBC 8.0 (4.8-10.8) K/mm3 Hgb 10.6 L (12.2-16.2) g/dL Hct 32.4 L (37.0-47.0) % Plt Count 178 (142-424) K/mm3 [facility] 03/31/18 05:14 Sodium 143 Potassium 4.0 Chloride 111 H Carbon Dioxide 28 BUN 29 H Creatinine 1.15 H Glucose 155 H Calcium 8.2 L I noticed that she has a high globulin fraction and low albumin associated with an elevated alkaline phosphatase. Assessment and Plan (1) COPD (chronic obstructive pulmonary disease) with acute bronchitis Current visit: Yes Status: Acute Category: Medical Code(s): J44.0 - Chronic obstructive pulmonary disease with acute lower respiratory infection; J20.9 - Acute bronchitis, unspecified (2) Renal insufficiency Current visit: Yes Status: Acute Category: Medical Code(s): N28.9 - Disorder of kidney and ureter, unspecified (3) Pneumonia, community acquired Current visit: No Status: Acute Category: Medical Code(s): J18.9 - Pneumonia, unspecified organism - Assessment and plan all Dx Assessment and Plan for all problems:: Ms. Steve is suffering an acute exacerbation of COPD. I personally looked at her x-ray and agree with the radiologist that there is a streaky density in the region of the lingula. I am not convinced this represents pneumonia, however. Changes consistent with COPD are present as before. This illness sounds more viral than bacterial and I have ordered a viral respiratory panel. If it is viral, and may take some time to improve. Actually, her symptoms sound like influenza. Clearly, the most important thing for her do is to quit smoking and I will go over this with her when I see her next in clinic. She has been under so much stress in the household and because of chronic pain that has not been inclined to try to quit. The pain may be related to a herniated nucleus pulposus but, given the elevated alkaline phosphatase and elevated blood infection, I think it would be useful to perform a serum protein electrophoresis to exclude a monoclonal gammopathy which could be associated with myeloma. That seems a remote possibility but it would be easy to exclude. I will follow-up with her as an outpatient. Thank you for the opportunity to participate in Ms. Steve' care.
[2018-03-31 11:01] LABS: Coronavirus 229E Not Detected (NotDetected); Coronavirus NL63 Not Detected (NotDetected); Coronavirus OC43 Not Detected (NotDetected); Coronovirus HKU1,PCR Not Detected (NotDetected)
--- NOTE | 2018-03-31 13:16 | Progress Note ---
Internal Medicine - PN: Subj *Date: 03/31/18 *Time: 13:13 Interval history: Ms. peters continues to be weak and shaky. Is getting up with assistance to go to the bathroom but otherwise has not gotten out of bed. Having poor appetite. Having improved respiration, decrease in sputum that she is coughing up, feels things are coming up easier. Reports 2 episodes of dark blood after Mucomyst when she coughs. Denies confusion, lethargy, nausea or vomiting, diarrhea, fever. -Complains of continued dizziness, and does not like her Mucomyst smells Exam Vital signs and Labs for Last 24 Hours: Temp Pulse Resp BP Pulse Ox 98.0 F 77 20 103/53 92 L 03/31/18 08:00 03/31/18 08:00 03/31/18 08:00 03/31/18 08:00 03/31/18 08:00 Laboratory Results - last 24 hr 03/31/18 05:14: WBC 8.0, RBC 3.60 L, Hgb 10.6 L, Hct 32.4 L, MCV 89.9, MCH 29.3 , MCHC 32.6, RDW 15.5, Plt Count 178, MPV 7.8, Neut % (Auto) 87.2 H, Lymph % ( Auto) 8.6 L, [place] % (Auto) 4.0, Eos % (Auto) 0.2, Baso % (Auto) 0.1, Neut # ( Auto) 7.0, Lymph # (Auto) 0.7, [place] # (Auto) 0.3, Eos # (Auto) 0.0, Baso # (Auto ) 0.0, Total Counted 100, Neutrophils % (Manual) 87 H, Lymphocytes % (Manual) 12 , Atypical Lymphs % 1.0, Platelet Estimate Normal, RBC Morphology Normal 03/31/18 05:14: Sodium 143, Potassium 4.0, Chloride 111 H, Carbon Dioxide 28, Anion Gap 8.0, BUN 29 H, Creatinine 1.15 H, Estimated Creat Clear 34, Estimated GFR 46 L, Est GFR ( Amer) 55 L, Glucose 155 H, Calcium 8.2 L I & O for Last 24 hours: Intake & Output 03/28/18 03/29/18 03/30/18 03/31/18 23:59 23:59 23:59 23:59 Intake Total 100 / 100 780 / 780 1215 / 1215 Output Total 200 / 200 Balance 100 / 100 580 / 580 1215 / 1215 Weight 51.88 kg 51.88 kg Microbiology Reports for the Last 24 Hours: Microbiology 03/29/18 21:50 Sputum - Expectorated Sputum Gram Stain - Final 03/29/18 21:50 Sputum - Expectorated Sputum Sputum Culture - Preliminary - *Routine HEENT Exam ENT: Present: mucous membranes moist Comments: Bitemporal wasting, atraumatic, normocephalic, equal ocular movement bilaterally - *Routine Neck Exam Present: supple. Absent: lymphadenopathy - *Routine Respiratory Exam Present: CTA bilaterally, prolonged expiratory phase. Absent: accessory muscle use, rales, wheezes - *Routine Cardiovascular Exam Present: RRR, Normal S1, Normal S2. Absent: murmur - *Routine Abdominal Exam Present: soft, normoactive bowel sounds. Absent: tenderness - *Routine Rectal Exam Patient deferred: visual exam - *Routine Exam Patient deferred: external exam - *Routine Extremities Exam Absent: cyanosis, clubbing, edema - *Routine Skin Exam Present: intact. Absent: cyanosis, erythema, pallor, mottling - *Routine Neurological Exam Present: alert, oriented X3, CN II-XII intact - Routine Psychiatric Exam Present: normal affect, normal thought process, cooperative, good insight Assessment and Plan (1) COPD (chronic obstructive pulmonary disease) with acute bronchitis Current visit: Yes Status: Acute Category: Medical Code(s): J44.0 - Chronic obstructive pulmonary disease with acute lower respiratory infection; J20.9 - Acute bronchitis, unspecified (2) Renal insufficiency Current visit: Yes Status: Acute Category: Medical Code(s): N28.9 - Disorder of kidney and ureter, unspecified (3) Pneumonia, community acquired Current visit: No Status: Acute Category: Medical Code(s): J18.9 - Pneumonia, unspecified organism - Assessment and plan all Dx Assessment and Plan for all problems:: Continue current antibiotics, continue Mucomyst one more day -Continue inhalers -PT OT consult placed today, recommendations pending -Continue to encourage oral intake -If remains afebrile with improved Sx will transition to oral antibiotics and likely discharge tomorrow -Placement pending Recs.
--- NOTE | 2018-04-01 07:44 | Discharge Summary ---
General - General Admission date:: 03/30/18 Discharge date: 04/01/18 HPI HPI: Ms. Steve is a 77-year-old woman who has mild to moderate chronic obstructive pulmonary disease with extensive emphysema on CT scan. She has continued to smoke about one half package of cigarettes daily and was still smoking when I last saw her in October. This past year, she has been more symptomatic than she had been and had an episode of pneumonia in September. At the time I evaluated her in October, she was complaining mostly of midthoracic pain radiating to the left side. She had a daily cough which was productive of small amounts of clear sputum and, although she was quite limited in her daily activities, pain was the major reason, not dyspnea. The pain persisted and she apparently has been told that it is related to a herniated disc. Another problem is weight loss this past year and she had lost about 9 pounds since the prior visit. Weight loss has continued, she told me and is associated with a poor appetite. Ms. Steve was on different inhalers, perhaps because of cost and most recently she has been using Breo and Spiriva. She wears O2 intermittently at home. She was in her usual state of health until about 3 weeks ago when she developed fever, chills, profound fatigue and increased shortness of breath associated with more cough which was productive of thick, yellowish sputum. She did not recover with outpatient antibiotic and corticosteroid therapy and was admitted here 2 days ago. With antibiotics and corticosteroids, she perhaps feels a little better but is still profoundly fatigued. Her appetite has dramatically improved on the corticosteroids. She has had no chest pain. She was troubled by diffuse headache which, although improved, is still present. Ms. Steve has a history of GERD which is still prominent. She told me she had had a colonoscopy within the last year and it was unremarkable. Hospital Course Hospital Course: Patient was admitted as noted above. Antibiotics and steroids were given. Patient had slow improvement. Mostly from the steroids. Blood cultures and sputum cultures were unremarkable, but PCR testing showed rhinovirus. Patient improved in a stepwise fashion. 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 This morning she will be transferred to the [facility] for PT/OT/dietary consultation. She will be transitioned to Omnicef 300 twice daily for 7 days. She will need to be on prednisone 20 mg twice daily for 7 days. Other medications will be as noted. Follow-up per our regular halfway rounds. Objective Vital signs: Temp Pulse Resp BP Pulse Ox 98.3 F 69 20 118/53 88 L 04/01/18 04:09 04/01/18 06:03 04/01/18 04:09 04/01/18 04:09 04/01/18 06:03 Narrative: Oropharynx clear, no sinus tenderness. Otherwise ENT exam clear. Lungs have rhonchi bilaterally but good air movement, minimal wheezing. Much improved over admission. Abdomen soft and nontender, heart rate regular. No edema. No cyanosis. Minimal clubbing. Muscle atrophy and cachexia as previously noted. Neurologic exam shows that she is alert and oriented. No focal deficits. Is globally weak. Results Labs on day of discharge: Labs from last 24 hours 03/31/18 10:45 Chlamy pneumoniae PCR Not detected Adenovirus (PCR) Not detected B.parapertussis DNA PCR Not detected Coronavirus OC43 (PCR) Not detected Coronavirus HKU1 (PCR) Not detected Coronavirus 229E (PCR) Not detected Coronavirus NL63 (PCR) Not detected Human Metapneumovir PCR Not detected Influenza A (H1) PCR Not detected Influ A (H1N1/09) PCR Not detected Influenza A (H3) PCR Not detected Influenza Type A (PCR) Not detected Influenza Type B (PCR) Not detected M. pneumoniae (PCR) Not detected Parainfluenza 1 (PCR) Not detected Parainfluenza 2 (PCR) Not detected Parainfluenza 3 (PCR) Not detected Parainfluenza 4 (PCR) Not detected RSV (PCR) Not detected Entero/Rhino (PCR) Detected A Preliminary micro results at discharge 03/29/18 21:42 Blood Culture - Preliminary Blood NO GROWTH AFTER 48 HOURS 03/29/18 21:42 Blood Culture - Preliminary Blood NO GROWTH AFTER 48 HOURS 03/29/18 21:50 Sputum Culture - Preliminary Sputum - Expectorated Sputum DS: Diagnosis - Discharge Diagnosis (1) COPD (chronic obstructive pulmonary disease) with acute bronchitis Status: Acute (2) Renal insufficiency Status: Resolved (3) Pneumonia, community acquired Status: Acute Discharge Plan - Patient Discharge Instructions ACTIVITY: Continue current activity, Up with assistance DIET: continue same diet - Follow up Plan Follow up with: Jennifer Gotti APRN [Nurse Practitioner] - 1 week Disposition: er Home Medications: Home Medications Medication Instructions Recorded Confirmed Type Levothyroxine Sodium 75 mcg PO DAILY 10/22/17 03/29/18 History [Levothyroxine 75mcg (0.075mg) Tab] diphenhydrAMINE HCl [Benadryl] 25 mg PO DAILY 11/24/17 03/30/18 History Aspirin [Aspir 81] 81 mg PO DAILY 01/30/18 03/29/18 History raNITIdine HCl [Acid Control] 150 mg PO BID 01/30/18 03/29/18 History Albuterol Sulfate [Albuterol 2.5 mg IH TID 03/30/18 03/30/18 History 0.083% 2.5mg/3mL neb] Atorvastatin Calcium [Atorvastatin 80 mg PO DAILY 03/30/18 03/30/18 History 80mg Tab] Cyproheptadine HCl 4 mg PO BID 03/30/18 03/30/18 History Metoprolol Succinate 50 mg PO DAILY 03/30/18 03/30/18 History Mirtazapine [Remeron 15mg tablet] 15 mg PO HS 03/30/18 03/30/18 History Miscellaneous [Unknown Home 0 each NOTAPPLIC CONSULT PHARMACY 03/30/18 03/30/18 History Medication] Sertraline HCl [Zoloft 50mg tablet] 50 mg PO DAILY 03/30/18 03/30/18 History Tiotropium [place] [Spiriva 1 puff IH DAILY 03/30/18 03/30/18 History 18mcg/puff inhaler] Prescriptions/Medication Reconciliation: New predniSONE [Deltasone 20mg tablet] 20 mg PO BID 7 Days #14 tab Cefdinir [Omnicef 300mg Capsule] 300 mg PO BID #14 cap Continue Levothyroxine Sodium [Levothyroxine 75mcg (0.075mg) Tab] 75 mcg PO DAILY diphenhydrAMINE HCl [Benadryl] 25 mg PO DAILY raNITIdine HCl [Acid Control] 150 mg PO BID Aspirin [Aspir 81] 81 mg PO DAILY Metoprolol Succinate 50 mg PO DAILY Mirtazapine [Remeron 15mg tablet] 15 mg PO HS Albuterol Sulfate [Albuterol 0.083% 2.5mg/3mL neb] 2.5 mg IH TID Miscellaneous [Unknown Home Medication] 0 each NOTAPPLIC CONSULT PHARMACY Atorvastatin Calcium [Atorvastatin 80mg Tab] 80 mg PO DAILY Tiotropium [place] [Spiriva 18mcg/puff inhaler] 1 puff IH DAILY Sertraline HCl [Zoloft 50mg tablet] 50 mg PO DAILY Discontinued Cyproheptadine HCl 4 mg PO BID
== END 2018-04-01 10:17 ==
LOC: 2ND 21:18 → ER 21:18 → 2ND 23:15
PROVIDERS: ADMIT Internal Medicine Adolescent Medicine; ATTEND Internal Medicine Adolescent Medicine

== ENCOUNTER → 2018-04-13 14:53 | Outpatient (POV) | payer MEDICARE, OTHER, SELFPAY ==
[2018-04-13 15:27] VITALS: BP 119/63; PULSE 85; RESP 18; O2SAT 93; BMI 16.7
--- NOTE | 2018-04-14 12:21 | HMH.PAINSOAP ---
[facility] Pain Management SOAP Note Subjective:: Service 04/13/2018 Patient is a pleasant 77-year-old white female who presents today for follow-up after thoracic epidural. Patient's doing well however she has had a resurgence of her shingles. Patient would like to have an epidural injection to see if this would help. Patient and I also talked about a intrathecal pain pump. Patient continually having pain I believe an intrathecal pain pump may be beneficial for her. Patient rates her pain as 7 out of 10. ROS General: no recent weight change, no fever, no sleep disturbances Respiratory: no cough, no shortness of air, no recurring pulmonary infections Cardiovascular/Peripheral Vascular: No chest pain, No palpitations, no edema, no shortness of breath. Gastrointestinal: no incontinence, normal bowel movements reported Genitourinary: no incontinence Musculoskeletal: Shingles pain, back pain Psychiatric: normal mood/ affect Neurological: [denies weakness in extremities], [denies balance issues] Objective:: Physical Exam General: Alert and oriented x3, no acute distress, pleasant and cooperative, [on room air] Lungs: Resps E/U, Symmetrical chest expansion, Eyes: PERRL Musculoskeletal: Flexion and extension of lumbar spine somewhat guarded secondary to pain, deep tendon reflexes normal, strength in upper and lower extremities [5/5], [abnormal gait noted] Neurological: speech clear, 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 We will also discuss an intrathecal pain pump after this. Patient is not on any anticoagulation therapy. Patient does not have any open wounds and is not currently on any antibiotics. This note was dictated using voice recognition software and may contain errors or omissions
--- NOTE | 2018-04-14 12:27 | P.CONS_ITS ---
[facility] Pain Management SOAP Note Subjective:: Service 04/13/2018 Patient is a pleasant 77-year-old white female who presents today for follow-up after thoracic epidural. Patient's doing well however she has had a resurgence of her shingles. Patient would like to have an epidural injection to see if this would help. Patient and I also talked about a intrathecal pain pump. Patient continually having pain I believe an intrathecal pain pump may be beneficial for her. Patient rates her pain as 7 out of 10. ROS General: no recent weight change, no fever, no sleep disturbances Respiratory: no cough, no shortness of air, no recurring pulmonary infections Cardiovascular/Peripheral Vascular: No chest pain, No palpitations, no edema, no shortness of breath. Gastrointestinal: no incontinence, normal bowel movements reported Genitourinary: no incontinence Musculoskeletal: Shingles pain, back pain Psychiatric: normal mood/ affect Neurological: [denies weakness in extremities], [denies balance issues] Objective:: Physical Exam General: Alert and oriented x3, no acute distress, pleasant and cooperative, [ on room air] Lungs: Resps E/U, Symmetrical chest expansion, Eyes: PERRL Musculoskeletal: Flexion and extension of lumbar spine somewhat guarded secondary to pain, deep tendon reflexes normal, strength in upper and lower extremities [5/5], [abnormal gait noted] Neurological: speech clear, science and operations officer equal, no gross sensory deficits Assessment:: Degenerative disc disease lumbar spine, shingles Plan:: we will schedule 5 S1 lumbar epidural steroid injection to help her with her shingles. We will also discuss an intrathecal pain pump after this. Patient is not on any anticoagulation therapy. Patient does not have any open wounds and is not currently on any antibiotics. This note was dictated using voice recognition software and may contain errors or omissions
== END ==
PROVIDERS: Family Provider Internal Medicine Adolescent Medicine; PCP Internal Medicine Adolescent Medicine; Visit Provider Clinical Nurse Specialist Family Health
DX: M51.36 Other intervertebral disc degeneration, lumbar region (principal); B02.9 Zoster without complications
CPT/HCPCS: 99213

== ENCOUNTER → 2018-06-26 09:32 | Outpatient (POV) | payer MEDICARE, OTHER, SELFPAY ==
[2018-06-26 09:48] VITALS: BP 140/54; PULSE 101; RESP 18; O2SAT 99; BMI 17.5
--- NOTE | 2018-06-26 10:07 | HMH.PMPROC ---
- Procedure Date: 06/26/18 Time: 10:07 Anesthesiologist:: Rene Carballo MD Complications:: None Pre-procedure Diagnosis:: Degenerative disc of lumbar with lumbar radiculopathy symptoms Post-procedure Diagnosis:: Same Indications for Procedure:: This patient is a pleasant 78-year-old white female who we are treating for low back pain with lumbar radiculopathy symptoms. She had permanent intrathecal morphine pump placed Friday. She was started at 0.25 mg/day. She is doing well. She is pain-free however she has having significant side effects including itching, nausea, lower extremity swelling and she has rash with antibiotics. Pain score is a 0-1 out of 10. She is very functional. Motor strength of the lower extremities is 5/5. There is no gross sensory deficit. Incision is healing very nicely. She presents for adjustment of her intrathecal pain pump today. Procedure Details:: Adjustment of intrathecal pain pump Informed consent was obtained and the risk and benefits of the procedure was explained to the patient. Patient was taken to the procedure room. The pump was interrogated. Intrathecal morphine infusion was decreased to 0.15 mg/day from 0.25 mg/day. Patient tolerated procedure well with no complications. Plan and Disposition:: We will follow-up with this patient in 1 week. She can shower today and change her dressing today. Her incision looks great. She can stop her antibiotics after her dose on Friday as it is causing side effects. If she has any further problems she is to call us in the pain clinic.
== END ==
PROVIDERS: PCP Internal Medicine Adolescent Medicine; Visit Provider Clinical Nurse Specialist Family Health
DX: M51.16 Intervertebral disc disorders with radiculopathy, lumbar region (principal)
CPT/HCPCS: 62368

== ENCOUNTER → 2018-07-01 16:33 | Outpatient (CLI) | payer MEDICARE, OTHER, SELFPAY ==
--- NOTE | 2018-07-01 16:40 | XR_ITS ---
XR chest 2V HISTORY: Orthopnea, peripheral edema ORDERING PHYSICIAN: Tone Mensah MD PATIENT AGE: 78 years COMPARISON: None FINDINGS: The cardiomediastinal silhouette and pulmonary vascularity are within normal limits. Coronary artery stent is noted. No lobar consolidation or collapse. No evidence of CHF. No acute bony anomalies. There is hyperinflation with attenuation of the peripheral pulmonary vessels consistent with COPD. IMPRESSION: COPD, no change with no acute finding
[2018-07-01 20:28] LABS: Alanine Aminotransferase 47 U/L (12-78); Albumin/Globulin Ratio 0.9 (1.1-1.8); Alkaline Phosphatase 263 U/L (46-116); Anion Gap 11.3 mEq/L (5-15); Aspartate Amino Transferase 40 U/L (15-37); Bilirubin,Total 0.4 mg/dL (0.2-1.0); Blood Urea Nitrogen 15 mg/dL (7-18); Calcium 8.6 mg/dL (8.5-10.1); Carbon Dioxide 29 mmol/L (21.0-32.0); Chloride 105 mmol/L (98-107); Creatinine,Serum 1.03 mg/dL (0.55-1.02); Estimated Glomerular Filt Rate 52 ml/min (>60); GFR (African American) 63 ML/MIN (>60); Globulin 3.3 gm/dl (1.3-3.2); Glucose 91 mg/dL (74-106); Potassium 4.3 mmoL/L (3.5-5.1); Sodium 141 mmol/L (136-145); Total Protein,Serum 6.3 gm/dL (6.4-8.2)
[2018-07-01 20:41] LABS: Basophils % 0.6 % (0.1-2.0); Eosinophils # 0.3 K/mm3 (0.0-0.4); Eosinophils % 6.1 % (0.1-12.0); Hematocrit 35.4 % (37.0-47.0); Hemoglobin 11.3 g/dL (12.2-16.2); Lymphocytes # 1.5 K/mm3 (0.7-4.5); Lymphocytes % 30.3 % (10-50); Mean Corpuscular HGB Conc 31.9 g/dL (31.8-35.4); Mean Corpuscular Hemoglobin 28.6 pg (27.0-31.2); Mean Corpuscular Volume 89.6 fl (81-99); Mean Platelet Volume 8.2 fl (7.4-10.4); Monocytes # 0.4 K/mm3 (0.1-1.0); Neutrophils # 2.7 K/mm3 (1.8-7.8); Platelet Count 218 K/mm3 (142-424); Red Blood Count 3.95 M/mm3 (4.20-5.40); Red Cell Distribution Width 14.7 % (11.5-17.5); White Blood Count 4.9 K/mm3 (4.8-10.8)
== END ==
PROVIDERS: PCP Internal Medicine Adolescent Medicine; Visit Provider Internal Medicine Adolescent Medicine
DX: R06.01 Orthopnea (principal); R60.9 Edema, unspecified
CPT/HCPCS: 36415; 71046; 80053; 83880; 85025

== ENCOUNTER → 2018-07-03 12:39 | Outpatient (CLI) | payer MEDICARE, OTHER, SELFPAY ==
--- NOTE | 2018-07-03 12:41 | CA_ITS ---
PROCEDURE: 2-D M-mode and color Doppler study INDICATIONS FOR THE TEST: Chest pain COPDX Heart Murmur Tobacco SmokingX Palpitations Fatigue Syncope Edema HypertensionXDiabetes Mellitus Rheumatic Fever SOBXDOEXObesity HyperlipidemiaX Family History HD Additional History CAD PATIENT INFORMATION HEIGHT: 67 WEIGHT:159 GENDER: Female B/P:140/80 2-D/M-MODE INTERPRETATION: 2-D MEASUREMENTS OBSERVED VALUES IN CMS Right Ventricular Dimension (RVDd) 1.5 Interventricular Septum (Thickness)(IVsd) .7 Left Ventricular Internal Dimensions(LVIDd) 4.9 Left Ventricular Posterior Wall (Thickness)(LVPWd) .7 Aortic Root 3.0 Aortic Cusp Separation 1.7 Left Atrial Dimensions (LAD) 2.3 2D 1. Left atrium is mildly enlarged, left ventricle is normal size, mild qualitative concentric left ventricular hypertrophy, visually estimated ejection fraction of 55% with no regional wall motion abnormality 2. The right atrium and right ventricle are normal size and contractility. 3. The aortic valve is minimally thickened and fibrosed. 4. The mitral and tricuspid valve leaflets are minimally thickened. 5. The pulmonic valve is poorly present. 6. No significant pericardial effusion noted. DOPPLER INTERROGATION: Doppler interrogation of the aortic, mitral and tricuspid valvular presence of mild mitral and tricuspid regurgitation, tricuspid regurgitation jet velocity is inadequate for calculation of the right ventricular systolic pressure, grade 1 diastolic dysfunction seen with tissue Doppler evidence of raised left atrial pressure. CONCLUSION: 1. Mildly left atrium, normal left ventricular size, mild concentric left ventricular hypertrophy, visually estimated ejection fraction 55% with no regional wall motion abnormality, grade 1 diastolic dysfunction seen with tissue Doppler evidence of raised left atrial pressure. 2. Mild mitral and tricuspid regurgitation 3. No significant pericardial effusion noted.
== END ==
PROVIDERS: PCP Internal Medicine Adolescent Medicine; Visit Provider Internal Medicine Adolescent Medicine
DX: R60.1 Generalized edema (principal)
CPT/HCPCS: 93306

== ENCOUNTER 2018-07-06 10:39 | Outpatient (CLI) | payer MEDICARE, OTHER, SELFPAY ==
--- NOTE | 2018-07-06 10:44 | NVE_ITS ---
Venous Exam Indications: 782.3 Edema. 729.81 Swelling of limb. IMPRESSIONS 1. No evidence of deep or superficial vein thrombosis involving the right lower extremity 2. No evidence of deep or superficial vein thrombosis involving the left lower extremity 3. . Complete lower extremity venous duplex evaluation. Doppler flow study including spectral analysis, color and smith scale imaging. Location: Vascular laboratory. Patient status: Outpatient. Tables: Venous flow and imaging: + +-------+ + Location Overall Flow properties + +-------+ + Right common femoral Patent Normal phasicity; spontaneous; normal augmentation; compressible + +-------+ + Right saphenofemoral junction Patent Compressible + +-------+ + Right profunda femoral Patent Compressible + +-------+ + Right femoral Patent Normal phasicity; spontaneous; normal augmentation; compressible; no reflux + +-------+ + Right greater saphenous Patent Normal phasicity; spontaneous; normal augmentation; compressible + +-------+ + Right popliteal Patent Normal phasicity; spontaneous; normal augmentation; compressible + +-------+ + Right posterior tibial Patent Compressible + +-------+ + Right peroneal Patent Compressible + +-------+ + Right gastrocnemius Patent Compressible + +-------+ + Right soleal Patent Compressible + +-------+ + Left common femoral Patent Normal phasicity; spontaneous; normal augmentation; compressible + +-------+ + Left saphenofemoral junction Patent Compressible + +-------+ + Left profunda femoral Patent Compressible + +-------+ + Left femoral Patent Normal phasicity; spontaneous; normal augmentation; compressible + +-------+ + Left greater saphenous Patent Normal phasicity; spontaneous; normal augmentation; compressible + +-------+ + Left popliteal Patent Normal phasicity; spontaneous; normal augmentation; compr
--- NOTE | 2018-07-06 11:50 | PC.NURSE ---
PT WAS SENT OVER FOR CATH UA AND ORDER WAS FOR CATH TO BE LEFT IN PLACE IF OVER 100 ML IN BAG; PUT LEG BAG ON AND PATIENT WAS INSTRUCTED TO CALL THE OFFICE IN THE AM IF SHE DID NOT HEAR BACK FROM THEM THIS AFTERNOON; PT NEEDED TO BE MADE AWARE OF HER FOLLOW UP AND ALSO HOW LONG TO LEAVE CATH IN PLACE
[2018-07-06 12:03] VITALS: BMI 19.4
[2018-07-06 12:27] LABS: Microscopic, Urine URINE MICROSCOPIC (MICROSCOPIC)
[2018-07-06 13:24] LABS: Appearance,Urine CLEAR (Clear); Bilirubin,Urine Negative (Negative); Blood, Urine Negative (Negative); Color,Urine YELLOW (Yellow); Glucose,Urine (UA) Negative (Negative); Ketones,Urine Negative (Negative); Leukocyte Esterase,Urine Negative (Negative); Nitrate,Urine Negative (Negative); PH,Urine 6.5 (5.0-8.5); Protein,Urine Negative (Negative); Urobilinogen,Urine 0.2 EU/dl (0.2)
[2018-07-06 14:19] LABS: Bacteria,Urine Trace /lpf; Squamous Epithelial Cell,Urine Occasional #/hpf (0-5); WBC,Urine Occasional #/hpf (0-3)
== END 2018-07-06 11:50 | disposition home or self-care (01) ==
LOC: RT 10:41
PROVIDERS: PCP Internal Medicine Adolescent Medicine; Visit Provider Internal Medicine Adolescent Medicine
DX: R60.1 Generalized edema (principal); R33.9 Retention of urine, unspecified
CPT/HCPCS: 81001; 87086; 93970; G0463

== ENCOUNTER → 2018-07-08 07:32 | Outpatient (CLI) | payer MEDICARE, OTHER, SELFPAY ==
--- NOTE | 2018-07-08 07:34 | CT_ITS ---
CT abdomen pelvis wo con ORDERING PHYSICIAN: Tone Mensah MD PATIENT AGE: 78 years INDICATION: ITS.REASON: DYSURIA. Unknown cause Abdominal pain morning COMPARISON: CT abdomen pelvis wo con June 2013 CT chest 2016 . TECHNIQUE: No oral nor IV contrast utilized. Axial images obtained with sagittal and coronal reformats. All CT scans at the facility use one or more dose reduction, viz: automated exposure control, ma/kV adjustment per patient size (including targeted exams where dose is matched to indication, i.e. head), or iterative reconstruction technique. FINDINGS: LUNG BASES. Minimal linear, slightly nodular scarring is seen anteriorly at the RML. Specifically noted at the anterolateral reflection of the major fissure. There is also a second area of linear scarring at base RML. These appear similar to CT chest 2017 . Abdomen/Pelvis. Lack of IV and Oral Contrast Decreased Sensitivity. . Noncontrast images of Liver, Pancreas Spleen Adrenals appear stable and satisfactory. Would again note a smal stable nodular density posterior margin of liver, as best seen on sagittal image 18, axial 26. It measures up to 1 cm. Slightly hyperdense. Another small accessory area of liver or spleen tissue suspect. No evidence of bleeding trauma otherwise however. The fact that it stable is reassuring. Gallbladder is been surgically removed no biliary ductal dilatation.q KIDNEYS. No urinary tract calculi nor obstruction. There is a new pain management likely stimulator or infusion device overlying the left flank which yields streak artifact. But does not significantly interfere with visualizing left kidney. PELVIS hysterectomy. Appendix is been removed. A Mooney catheter has been placed at the urinary bladder but the urinary bladder continues to have prominent urine mildly distention at the time the scan.. Correlation required. No urinary bladder wall thickening. No adnexal masses GI tract. Prominent stool is seen throughout the colon slight increased throughout. No wall thickening. Small bowel unremarkable. Stomach unremarkable. Diffuse atheroslight calcification aorta. Lower abdominal aorta is mildly dilated with 2.7 cm diameter. It contains some additional calcification within the aortic lumen suggesting calcified plaque with narrowed patent lumen roughly 50% stenosis. More likely calcified intraluminal thrombus. Less likely dissection. Similar appearance is seen on prior study. No significant adenopathy or mass abdomen or pelvis. No retroperitoneal nor mesenteric nor pelvic adenopathy. Spine, dextro scoliosis with marked degenerative disc changes again seen at L4/5. Spinal similar lead or catheter enters at the L4/5 level and extends cephalad to the epidural space to the lower T-spine. Prominent disc bulge L4/5 along with posterior element hypertrophy yields spinal stenosis at this level IMPRESSION 1. No acute findings abdomen or pelvis No urinary tract calculi or obstruction evident. 2. Urinary bladder mildly distended despite a Mooney catheter in place. Requires correlation. It may be clamped? 3. Other incidental observations: ... Generous stool throughout colon ... Calcified intraluminal plaque narrows lower abdominal aorta with estimated 50% stenosis ... minor aneurysmal dilatation lower abd aorta at 2.7 cm diameter. Only subtle progression since 2012 at which time it measured 2.3 cm) ... Pain management device now overlies the left buttocks with associated epidural lead entering at L4/5 ... L4/5 spinal stenosis Prominent degenerative disc bulge & posterior element hypertrophy L4/5
== END ==
PROVIDERS: PCP Internal Medicine Adolescent Medicine; Visit Provider Internal Medicine Adolescent Medicine
DX: R30.0 Dysuria (principal)
CPT/HCPCS: 62368; 74176

== ENCOUNTER → 2018-07-08 11:44 | Outpatient (POV) | payer MEDICARE, OTHER, SELFPAY ==
[2018-07-08 11:46] VITALS: BP 143/70; PULSE 81; RESP 18; O2SAT 91; BMI 19.8
--- NOTE | 2018-07-08 12:27 | HMH.PMPROC ---
- Procedure Date: 07/08/18 Time: 12:27 Anesthesiologist:: Rene Carballo MD Complications:: None Pre-procedure Diagnosis:: Degenerative disc disease of lumbar spine with lumbar radiculopathy symptoms Post-procedure Diagnosis:: Same Indications for Procedure:: This patient is a pleasant 78-year-old white female who we are treating for low back pain with lumbar radiculopathy symptoms. We did decrease her intrathecal morphine pain pump to 0.15 mg/day. She is still having some side effects. She still has no pain. She has some urinary hesitancy and a Mooney was placed. She is on Flomax. We will further decrease her pump to 0.08 mg/day. We will increase her Flomax to 0.4 mg twice a day. We will follow-up with her in 2 weeks to reassess her symptomology. Procedure Details:: Adjustment of intrathecal pain pump infusion Informed consent was obtained and the risk and benefits of the procedure was explained to the patient. Patient was taken to the procedure room. The pump was interrogated. Intrathecal morphine infusion further decrease to 0.08 mg/day. Patient tolerated the procedure well with no complications. Plan and Disposition:: We will follow-up with her in 2 weeks. We will reevaluate her symptoms at that we will also start her on Flomax 0.4 mg twice a day.
== END ==
PROVIDERS: PCP Internal Medicine Adolescent Medicine; Visit Provider Anesthesiology
DX: M51.16 Intervertebral disc disorders with radiculopathy, lumbar region (principal)
CPT/HCPCS: 62368

== ENCOUNTER → 2018-07-13 11:56 | Outpatient (POV) | payer MEDICARE, OTHER, SELFPAY ==
[2018-07-13 12:06] VITALS: BP 122/64; PULSE 80; RESP 18; O2SAT 98; BMI 18.2
--- NOTE | 2018-07-13 12:17 | P.PCN_ITS ---
- Procedure Date: 03/12/18 Time: 12:15 Anesthesiologist:: Dorita De Luna APRN Complications:: None Pre-procedure Diagnosis:: Generative disc disease lumbar spine with lumbar radiculopathy and urinary retention Post-procedure Diagnosis:: Same Indications for Procedure:: Patient is an extremely pleasant 78-year-old white female who presents today for reprogramming of her intrathecal pain pump. Patient has had continual urinary retention. Patient has a catheter placed at this time. We will decrease her interthecal infusion and start her on a 6-hour periodic flow at 0.01 mg. We will also start her on Flomax. Patient will have her catheter removed by her primary care physician on Friday. We will then follow-up with her on Friday to determine our next move. Patient may be a candidate for Dilaudid therapy instead of morphine if she has decreased symptomology during this time. Physical Exam General: Alert and oriented x3, no acute distress, pleasant and cooperative, [on room air] Lungs: Resps E/U, Symmetrical chest expansion, Eyes: PERRL Musculoskeletal: Flexion and extension of lumbar spine somewhat guarded secondary to pain, deep tendon reflexes normal, strength in upper and lower extremities [5/5], [abnormal gait noted] Neurological: speech clear, redevelopment specialist equal, no gross sensory deficits Procedure Details:: Informed consent was obtained and the risk and benefits of the procedure were explained to the patient. The patient was taken to the procedure room where noninvasive monitoring was placed including noninvasive blood pressure cuff and pulse oximeter. Patient's pump was interrogated. The infusion rate was changed to 0.01 mg every 6 hours for total daily dose of 0.04 mg. The patient tolerated the procedure well. Plan and Disposition:: We will call in Flomax 0.8 mg daily for the patient to start taking prior to having her catheter removed. We will then follow-up with her Friday and ssess her. Patient's been instructed to call the office if she has any issues prior to her next appointment. This note was dictated using voice recognition software and may contain errors or omissions
== END ==
PROVIDERS: PCP Internal Medicine Adolescent Medicine; Visit Provider Clinical Nurse Specialist Family Health
DX: M51.16 Intervertebral disc disorders with radiculopathy, lumbar region (principal); R33.9 Retention of urine, unspecified
CPT/HCPCS: 62368

== ENCOUNTER → 2018-07-17 09:19 | Outpatient (CLI) | payer MEDICARE, OTHER, SELFPAY | PROVIDERS: PCP Internal Medicine Adolescent Medicine; Visit Provider Internal Medicine Adolescent Medicine | DX: Z46.6 Encounter for fitting and adjustment of urinary device (principal) | CPT/HCPCS: G0463 ==

== ENCOUNTER 2018-07-19 23:07 | Observation (INO) ==
--- NOTE | 2018-07-19 23:12 | Emergency Department Note ---
ED Disposition Clinical Impression: Elevated d-dimer Chest pain Qualifiers: Chest pain type: precordial pain Qualified Code(s): R07.2 - Precordial pain Disposition: Still a Patient Condition on Discharge: Fair - Critical Care Critical Care Time: No Attestation: On , the high probability of a clinically significant, sudden or life threatening deterioration of the following system(s) required my full and direct attention, intervention and personal management. The time I documented below is in addition to time spent performing reported procedures but includes the following listed in this critical care notation. Medical Decision Making - Andrea Inquiry Pt receiving controlled substance: No Vital Signs: 07/19/18 23:07 07/19/18 23:37 07/19/18 23:38 Temperature 98.2 F Temperature Source Oral Pulse Rate 81 81 Pulse Rate [Right Radial] 92 H Respiratory Rate 20 Blood Pressure Blood Pressure [Right Arm] 112/59 L Blood Pressure Mean [Right Arm] 76 02 Sat by Pulse Oximetry 93 L Oxygen Delivery Method Oxygen Flow Rate (LPM) 07/20/18 00:22 07/20/18 00:23 07/20/18 01:12 Temperature Temperature Source Pulse Rate Pulse Rate [Right Radial] 80 80 79 Respiratory Rate 20 20 20 Blood Pressure Blood Pressure [Right Arm] 85/38 L 90/47 L 96/42 L Blood Pressure Mean [Right Arm] 53 61 60 02 Sat by Pulse Oximetry 87 L 93 L 91 L Oxygen Delivery Method Room Air Nasal Cannula Nasal Cannula Oxygen Flow Rate (LPM) 2 2 07/20/18 01:24 Temperature 98.6 F Temperature Source Pulse Rate 75 Pulse Rate [Right Radial] Respiratory Rate 20 Blood Pressure 100/43 L Blood Pressure [Right Arm] Blood Pressure Mean [Right Arm] 02 Sat by Pulse Oximetry Oxygen Delivery Method Nasal Cannula Oxygen Flow Rate (LPM) - Lab Data Lab Results 07/19/18 23:10: WBC 6.5, RBC 3.93 L, Hgb 11.6 L, Hct 34.4 L, MCV 87.5, MCH 29.4, MCHC 33.6, RDW 14.6, Plt Count 182, MPV 8.1, Neut % (Auto) 61.4, Lymph % (Auto) 27.0, [place] % (Auto) 7.8, Eos % (Auto) 3.0, Baso % (Auto) 0.7, Neut # (Auto) 4.0, Lymph # (Auto) 1.7, [place] # (Auto) 0.5, Eos # (Auto) 0.2, Baso # (Auto) 0.0 07/19/18 23:10: Sodium 140, Potassium 3.1 L, Chloride 101, Carbon Dioxide 28, Anion Gap 14.1, BUN 20 H, Creatinine 1.35 H, Estimated Creat Clear 32, Estimated GFR 38 L, Est GFR ( Amer) 46 L, Glucose 114 H, Calcium 8.6, Troponin I < 0.02 07/19/18 23:10: B-Natriuretic Peptide 47 07/19/18 23:10: D-Dimer 733 H* Result diagrams: 07/19/18 23:10 07/19/18 23:10 Orders (Tests/Meds): ED MEDICATIONS Generic Name Dose Route Start Last Admin Trade Name Freq PRN Reason Stop Dose Admin Albuterol Sulfate 2.5 mg 07/20/18 09:00 Albuterol 0.083% 2.5mg/3ml Neb IH 08/19/18 08:59 TID ROSELINE Aspirin 81 mg 07/20/18 09:00 Aspirin 81mg Enteric Coated Tablet PO 08/19/18 08:59 DAILY ROSELINE Diphenhydramine HCl 25 mg 07/20/18 09:00 Benadryl 25mg Capsule PO 08/19/18 08:59 DAILY [facility], [facility]1983 Enoxaparin Sodium 60 mg 07/20/18 09:00 Lovenox 60mg/0.6ml Syringe SQ 08/19/18 08:59 BID ROSELINE Levothyroxine Sodium 75 mcg 07/20/18 09:00 Synthroid 75mcg (0.075mg) Tablet PO 08/19/18 08:59 DAILY ROSELINE Metoprolol Succinate 50 mg 07/20/18 09:00 Toprol Xl 50mg Tablet PO 08/19/18 08:59 DAILY [facility] Mirtazapine 15 mg 07/20/18 21:00 Remeron 15mg Tablet PO 08/19/18 20:59 HS ROSELINE Non-Formulary Medication 80 mg 07/20/18 09:00 Atorvastatin Calcium [Atorvastatin 80mg Tab] PO 08/19/18 08:59 DAILY ROSELINE Non-Formulary Medication 150 mg 07/20/18 09:00 Ranitidine Hcl [Acid Control] PO 08/19/18 08:59 BID ROSELINE Discontinued Medications Generic Name Dose Route Start Last Admin Trade Name Jessi PRN Reason Stop Dose Admin Albuterol/Ipratropium 3 ml 07/19/18 23:15 07/19/18 23:37 Duoneb 3ml Neb IH 07/19/18 23:16 3 ml ONCE ONE Administration Enoxaparin Sodium 60 mg 07/20/18 01:04 07/20/18 01:08 Lovenox 60mg/0.6ml Syringe SQ 07/20/18 01:05 60 mg ONCE ONE Administration Methylprednisolone Sodium Succinate 125 mg 07/19/18 23:15 07/19/18 23:22 Solu-Medrol 125mg/2ml Vial IV 07/19/18 23:16 125 mg ONCE ONE Administration Nitroglycerin 1 gm 07/19/18 23:15 07/19/18 23:22 Nitroglycerin 1 Inch Oint Udp TD 07/19/18 23:16 1 gm ONCE ONE Administration Sodium Chloride 1,000 ml 07/20/18 00:24 07/20/18 00:31 Sod Chlor 0.9% 1000ml Bag IV 07/20/18 00:25 1,000 ml BOLUS ONE Administration ORDERS Category Date Time Status XR chest 2V Stat Exams 07/19/18 23:14 Taken Troponin I Q3H Lab 07/20/18 04:30 Ordered Troponin I Q3H Lab 07/20/18 07:30 Ordered ECG Request by /Jia Stat Y 07/19/18 23:14 Ordered - Radiology Data #1 Image(s): Chest Image Reviewed: Yes I reviewed the patient's radiology image Chest x-ray interpreted by Aryan Garcia M.D. No infiltrate, pneumothorax or wide mediastinum. Possible tiny left pleural effusion. - ECG Data Tracing #1 EKG interpreted by Aryan Garcia MD: Rhythm: sinus Rate: 92 [place]: normal Ectopy: none Conduction: normal ST Segment Changes: none T Wave Changes: none Q Waves: none No evidence of acute ischemia or injury Baseline artifact and wander present, but I consider the EKG adequate for accurate interpretation. - Physician Consults Physician Consulted: Capri Mensah Time: 00:17 Reason -: Admission Comment/Response: Agrees to admit the patient to the hospital. We discussed the patient's clinical information, including history, exam, laboratory and radiology results and ED course. Per hospital procedure, I will write temporary bridge inpatient orders on the patient. Specific orders requested by the admitting physician: Serial cardiac enzymes Medical Decision Narrative: [facility]: ANGIOGRAPHIC RESULTS: 1. The left main artery is small caliber but normal 2. The left anterior descending artery has ostial mild to moderate concentric nonflow limiting disease followed by a moderate focal proximal stenosis immediately proximal to the stent that is placed which is probably flow-limiting. The stent itself is widely patent free of in-stent restenosis. Immediately distal to the stent there is a moderate to severe flow-limiting stenosis 3. The circumflex artery is a vestigial vessel and normal 4. The right coronary artery is a dominant vessel and has moderate atheromatous plaque throughout the proximal and mid segment followed by a stent in the distal segment which is widely patent free of in-stent restenosis 5. The GIRALDO ventriculogram reveals normal ejection fraction estimated at 65% 6. The left ventricular end-diastolic pressure 10 mmHg IMPRESSION: 1. Hemodynamically significant disease in the proximal and mid LAD adjacent to the stent 2. Patent proximal LAD stent 3. Patent stent in the distal right coronary artery with moderate nonflow limiting atheromatous plaque throughout the mid segment of the right coronary artery 4. Normal ejection fraction 5. Normal left ventricular end-diastolic pressure PLAN: 1. Patient is having classic angina pectoris. The proximal LAD especially when combined with the mid LAD is almost certainly producing patient's symptoms. An FFR would not be clinically justified due to the stenosis in the mid LAD 2. Plavix and aspirin 3. Patient will be taken to [place] this Friday and will undergo stenting of the ostial proximal mid LAD 4. The right coronary artery will be managed medically <Electronically signed by Brandon Brown MD in OV> 04/12/15 1304 EVA / PS AT 1053 AT 1057 BP dropped into 80's in ED. Nitropaste removed, fluid bolus with improvement. O2 sat dropped to upper 80s, O2 applied. Elevated d-dimer, patient's estimated GFR is 38, compounded by hypotension in the emergency department, I will defer CT angiogram at this point due to risk of kidney injury, but will treat with Lovenox. General Adult HPI - General Stated complaint: chest pain Time Seen by Provider: 07/19/18 23:46 - History of Present Illness HPI narrative: has pain in her left arm and shoulder across her chest and into her neck since about 9 PM. Associated with shortness of breath, nausea, diaphoresis. Almost completely relieved with nitroglycerin during transport, says she only has slight pain now. States pain feels similar to her previous heart pain. Has a history of coronary artery disease and stent placement. Sees Dr. Brown. Has swelling of both feet since she had a pain pump placed last month. - Related Data Home Medications Medication Instructions Recorded Confirmed Levothyroxine Sodium 75 mcg PO DAILY 10/22/17 07/19/18 [Levothyroxine 75mcg (0.075mg) Tab] diphenhydrAMINE HCl [Benadryl] 25 mg PO DAILY 11/24/17 07/19/18 Aspirin [Aspir 81] 81 mg PO DAILY 01/30/18 07/19/18 raNITIdine HCl [Acid Control] 150 mg PO BID 01/30/18 07/19/18 Albuterol Sulfate [Albuterol 2.5 mg IH TID 03/30/18 07/19/18 0.083% 2.5mg/3mL neb] Atorvastatin Calcium [Atorvastatin 80 mg PO DAILY 03/30/18 07/19/18 80mg Tab] Metoprolol Succinate 50 mg PO DAILY 03/30/18 07/19/18 Mirtazapine [Remeron 15mg tablet] 15 mg PO HS 03/30/18 07/19/18 Allergies Allergy/AdvReac Type Severity Reaction Status Date / Time aspirin [ASPIRIN] Allergy Intermediate I-ITCHING Verified 07/19/18 23:14 Penicillins [PENICILLINS] Allergy Intermediate I-RASH Verified 07/19/18 23:14 oxycodone [From PERCOCET] Allergy Unknown Gastrointestinal Verified 07/19/18 23:14 Upset egg Allergy Vomiting Verified 07/19/18 23:14 hydrocodone [From Lortab] Allergy Gastrointestinal Verified 07/19/18 23:14 Upset tramadol Allergy Unknown Verified 07/19/18 23:14 allergy reaction [facility] History I have reviewed the patient's past medical history: Yes Medical History: Reports:: Coronary Artery Disease, Cerebrovascular Accident, Depression, Gastroesophageal Reflux Disease(GERD), Hyperlipidemia, Hypertension, Palpitations Denies:: Cancer, Diabetes Mellitus Type 1, Diabetes Mellitus Type 2, Internal Pacemaker, MRSA, Seizures Other Medical History: Reports: Cataracts, Thyroid Disease. Denies: Blood Transfusion Reaction Comment: Illnesses-COPD, hypercholesterolemia, cigarette abuse, back pain secondary to arthritis Other Surgeries: Yes: Appendectomy, Cardiac Catheterization, Cholecystectomy, Hysterectomy-Total, Thyroidectomy, Other (back surgery). No: Pacemaker Amputation: No Fractures: No Comment: Operations-back surgery x2, appendectomy, thyroidectomy, hysterectomy, cholecystectomy - Social History Smoking Status: Current every day smoker Tobacco Type: cigarettes # Packs/Day (cigarettes): 1 #Yrs smoked (if former smoker): 60 Alcohol Intake: never Occupational Status: retired Housing: assisted living facility Household Members: family Comment: Ms. Steve lives with her son and his family. They are in a 3 bedroom house and she has her own small room with a private bath, I believe. However, there are 8 others in that same home, 3 of them very little and this is a stress for her. She is hoping to be able to live with a nephew who is buying a new home. - Psychiatric History Pschychiatric History:: Reports:: Depression Family Hx:: Coronary Artery Disease, Heart Attack, Hypertension, Stroke ROS Obtained: Yes All systems reviewed & no additional complaints - Constitutional Constitutional: Denies fever(s) - Cardiovascular Cardiovascular: Reports chest pain, Reports diaphoresis, Reports edema (Feet) - Respiratory Respiratory: No cough, Yes dyspnea - Gastrointestinal Gastrointestingal: Reports: nausea. Denies: vomiting Physical Exam - General General appearance: alert, in no apparent distress - Head Head exam: atraumatic, normocephalic - Eye Eye exam: Present: normal appearance, PERRL, EOMI - ENT ENT exam: Present: mucous membranes moist - Neck Neck exam: Present: normal inspection, trachea midline - Chest Chest inspection: Present: normal inspection, symmetric chest wall rise - Respiratory Respiratory exam: Present: normal lung sounds bilaterally. Absent: respiratory distress - Cardiovascular Cardiovascular exam: Present: regular rate, normal rhythm, normal heart sounds - Abdominal Exam Abdominal exam: Present: soft. Absent: distention, tenderness - Extremities Exam Extremities exam: Present: other (1+ pitting edema both feet symmetrically.). Absent: calf tenderness - Neurological Exam Neurological exam: Present: alert, oriented X3 - Psychiatric Psychiatric exam: Present: normal affect - Skin Skin exam: Present: warm, dry
[2018-07-19 23:39] LABS: Basophils % 0.7 % (0.1-2.0); Eosinophils # 0.2 K/mm3 (0.0-0.4); Hematocrit 34.4 % (37.0-47.0); Hemoglobin 11.6 g/dL (12.2-16.2); Lymphocytes # 1.7 K/mm3 (0.7-4.5); Mean Corpuscular HGB Conc 33.6 g/dL (31.8-35.4); Mean Corpuscular Hemoglobin 29.4 pg (27.0-31.2); Mean Corpuscular Volume 87.5 fl (81-99); Mean Platelet Volume 8.1 fl (7.4-10.4); Monocytes # 0.5 K/mm3 (0.1-1.0); Monocytes % 7.8 % (1.7-9.3); Neutrophils % 61.4 % (37.0-80.0); Platelet Count 182 K/mm3 (142-424); Red Blood Count 3.93 M/mm3 (4.20-5.40); Red Cell Distribution Width 14.6 % (11.5-17.5); White Blood Count 6.5 K/mm3 (4.8-10.8)
[2018-07-19 23:50] LABS: Anion Gap 14.1 mEq/L (5-15); Blood Urea Nitrogen 20 mg/dL (7-18); Calcium 8.6 mg/dL (8.5-10.1); Carbon Dioxide 28 mmol/L (21.0-32.0); Chloride 101 mmol/L (98-107); Glucose 114 mg/dL (74-106); Potassium 3.1 mmoL/L (3.5-5.1); Sodium 140 mmol/L (136-145)
--- NOTE | 2018-07-20 07:31 | Pharmacy Consult Notes ---
[facility] VTE Monitoring - Patient Demographics Admission date: 07/20/18 Report Date: 07/20/18 Time: 07:30 Allergies/Adverse Reactions: Patient Allergies aspirin [ASPIRIN] Allergy (Intermediate, Verified 07/19/18 23:14) I-ITCHING Penicillins [PENICILLINS] Allergy (Intermediate, Verified 07/19/18 23:14) I-RASH oxycodone [From PERCOCET] Allergy (Unknown, Verified 07/19/18 23:14) Gastrointestinal Upset egg Allergy (Verified 07/19/18 23:14) Vomiting hydrocodone [From Lortab] Allergy (Verified 07/19/18 23:14) Gastrointestinal Upset tramadol Allergy (Verified 07/19/18 23:14) Unknown allergy reaction Height: 1.7 m Weight: 56.019 kg Patient Problems: Current Active Problems Chest pain (Acute) Elevated d-dimer (Acute) - VTE Risk Labs: VTE Related Lab Results Hgb 11.6 g/dL (12.2-16.2) L 07/19/18 23:10 Hct 34.4 % (37.0-47.0) L 07/19/18 23:10 Plt Count 182 K/mm3 (142-424) 07/19/18 23:10 BUN 20 mg/dL (7-18) H 07/19/18 23:10 Creatinine 1.35 mg/dL (0.55-1.02) H 07/19/18 23:10 Estimated Creat Clear 32 mL/min (50-200) 07/19/18 23:10 Was VTE Risk Assessment Performed: Yes VTE Score: 6 VTE Risk Level: Moderate Risk - Prophylaxis VTE Prophylaxis Ordered?: Yes Types of VTE Prophylaxis: Pharmacological Pharmacologic Type: Enoxaparin - VTE Diagnosis Confirmed Treatment or plan recommended: Continue Current Treatment
--- NOTE | 2018-07-20 08:33 | History & Physical Report ---
*Admission Date: 07/20/18 *Chief complaint: Chest pain *History of present illness: 78-year-old white female with COPD, oxygen and nebulizer requiring, with frequent exacerbations, who has had cardiac disease with stent placement in March of this year. Has had an episode over the past couple of months after pain pump was placed with narcotic therapy of urinary retention and leg swelling, slightly ameliorated by the cessation of her pain medication through the pump a couple of weeks ago. She came to the emergency department last night with chest pain in the left lower chest radiating into the left anterior line, not exertionally related. Patient had negative troponins but had a moderately elevated d-dimer and was admitted to hospital for observation. This morning she feels better, and does report that she has pain with deep inspiration. [facility] History I have reviewed the patient's past medical history: Yes Medical History: Reports:: Coronary Artery Disease, Cerebrovascular Accident, Depression, Gastroesophageal Reflux Disease(GERD), Hyperlipidemia, Hypertension, Internal Pacemaker, Palpitations Denies:: Cancer, Diabetes Mellitus Type 1, Diabetes Mellitus Type 2, MRSA, Seizures Other Medical History: Reports: Cataracts, Thyroid Disease. Denies: Blood Transfusion Reaction Laterality Cases: Bilateral: Cataract Other Surgeries: Yes: Appendectomy, Cardiac Catheterization, Cholecystectomy, Hysterectomy-Total, Pacemaker, Thyroidectomy, Other (back surgery) Amputation: No Fractures: No - *Social History Educational Level: Completed High School Smoking Status: Current every day smoker Tobacco Type: cigarettes # Packs/Day (cigarettes): 1 #Yrs smoked (if former smoker): 60 Alcohol Intake: never Occupational Status: retired Housing: house Household Members: family - Psychiatric History Expresses thoughts of harming self/others: None Suicide Plan Description: No Plan Pschychiatric History:: Reports:: Depression *Family Hx:: Cancer, Coronary Artery Disease, Diabetes, Heart Attack, Hyperlipidemia, Hypertension, Stroke, Tuberculosis Review of Systems - Review of Systems Review of systems:: pertinent systems reviewed and negative unless documented below Meds Home Medications Medication Instructions Recorded Confirmed Type Levothyroxine Sodium 75 mcg PO DAILY 10/22/17 07/20/18 History [Levothyroxine 75mcg (0.075mg) Tab] diphenhydrAMINE HCl [Benadryl] 25 mg PO DAILY 11/24/17 07/20/18 History Aspirin [Aspir 81] 81 mg PO DAILY 01/30/18 07/20/18 History raNITIdine HCl [Acid Control] 150 mg PO BID 01/30/18 07/20/18 History Albuterol Sulfate [Albuterol 2.5 mg IH TID 03/30/18 07/19/18 History 0.083% 2.5mg/3mL neb] Atorvastatin Calcium [Atorvastatin 80 mg PO DAILY 03/30/18 07/20/18 History 80mg Tab] Metoprolol Succinate 50 mg PO DAILY 03/30/18 07/20/18 History Mirtazapine [Remeron 15mg tablet] 15 mg PO HS 03/30/18 07/20/18 History Tamsulosin HCl [Flomax 0.4mg 0.4 mg PO BID 07/20/18 07/20/18 History capsule] Allergies Allergy/AdvReac Type Severity Reaction Status Date / Time aspirin [ASPIRIN] Allergy Intermediate I-ITCHING Verified 07/19/18 23:14 Penicillins [PENICILLINS] Allergy Intermediate I-RASH Verified 07/19/18 23:14 oxycodone [From PERCOCET] Allergy Unknown Gastrointestinal Verified 07/19/18 23:14 Upset egg Allergy Vomiting Verified 07/19/18 23:14 hydrocodone [From Lortab] Allergy Gastrointestinal Verified 07/19/18 23:14 Upset tramadol Allergy Unknown Verified 07/19/18 23:14 allergy reaction Exam Vital signs and Labs for Last 24 Hours: Temp Pulse Resp BP Pulse Ox 97.7 F 91 H 20 98/46 L 96 07/20/18 08:13 07/20/18 08:13 07/20/18 08:13 07/20/18 08:13 07/20/18 08:13 Laboratory Results - last 24 hr 07/19/18 23:10: WBC 6.5, RBC 3.93 L, Hgb 11.6 L, Hct 34.4 L, MCV 87.5, MCH 29.4, MCHC 33.6, RDW 14.6, Plt Count 182, MPV 8.1, Neut % (Auto) 61.4, Lymph % (Auto) 27.0, [place] % (Auto) 7.8, Eos % (Auto) 3.0, Baso % (Auto) 0.7, Neut # (Auto) 4.0, Lymph # (Auto) 1.7, [place] # (Auto) 0.5, Eos # (Auto) 0.2, Baso # (Auto) 0.0 07/19/18 23:10: Sodium 140, Potassium 3.1 L, Chloride 101, Carbon Dioxide 28, Anion Gap 14.1, BUN 20 H, Creatinine 1.35 H, Estimated Creat Clear 32, Estimated GFR 38 L, Est GFR ( Amer) 46 L, Glucose 114 H, Calcium 8.6, Troponin I < 0.02 07/19/18 23:10: B-Natriuretic Peptide 47 07/19/18 23:10: D-Dimer 733 H* 07/20/18 04:20: Troponin I < 0.02 07/20/18 07:45: Troponin I < 0.02 I & O for Last 24 hours: Intake & Output 07/17/18 07/18/18 07/19/18 07/20/18 11:59 11:59 11:59 11:59 Intake Total 360 / 360 Balance 360 / 360 Weight 123 lb 8 oz Narrative: Patient is awake, alert, oriented x3. No complaints at this point. Chest exam has good air expansion, limited air movement in the bases which is her baseline. She is without distress but does have some splinting behaviors when she takes a very breath. Rhonchi in both lower lung nolen, at baseline. Heart rate regular. No murmurs or gallops. Abdomen soft and scaphoid. She has trace ankle edema otherwise able to move arms and legs well. No cranial nerve deficits. Assessment and Plan (1) Chest pain Current visit: Yes Status: Acute Qualifiers: Chest pain type: precordial pain Qualified Code(s): R07.2 - Precordial pain Category: Medical Code(s): R07.9 - Chest pain, unspecified Does not seem cardiac in nature. Troponins negative. Workup for PE as noted below (2) Elevated d-dimer Current visit: Yes Status: Acute Category: Medical Code(s): R79.89 - Other specified abnormal findings of blood chemistry CT scan for PE protocol. If creatinine elevated still this morning consider VQ scan. (3) Pneumonia, community acquired Current visit: No Status: Acute Category: Medical Code(s): J18.9 - Pneumonia, unspecified organism Infiltrate on chest x-ray. Start levofloxacin therapy.
--- NOTE | 2018-07-20 15:36 | Consult Report ---
[facility] Pain Management SOAP Note Subjective:: Patient is a pleasant 78-year-old white female who has been admitted to the hospital for pneumonia and difficulty with breathing. Patient was seen in our office due to urinary retention. Patient has an intrathecal morphine pump going at 0.01 mg every 6 hours for total daily dose of 0.04 mg. Patient states that her pain is doing well for her back. Patient also states that after she was put on Flomax she was able to urinate much easier. At this time we will leave the pump settings as he is. I will follow-up with her after she gets discharged from the hospital. Potentially we may change her medication for Prialt due to her urinary retention. This note was dictated using voice recognition software and may contain errors or omissions
[2018-07-21 07:26] LABS: Basophils % 0.3 % (0.1-2.0); Eosinophils % 0.1 % (0.1-12.0); Hematocrit 29.6 % (37.0-47.0); Hemoglobin 9.6 g/dL (12.2-16.2); Lymphocytes % 22.3 % (10-50); Mean Corpuscular HGB Conc 32.3 g/dL (31.8-35.4); Mean Corpuscular Hemoglobin 28.8 pg (27.0-31.2); Mean Corpuscular Volume 89.1 fl (81-99); Mean Platelet Volume 8.3 fl (7.4-10.4); Monocytes # 0.3 K/mm3 (0.1-1.0); Monocytes % 6.2 % (1.7-9.3); Neutrophils # 3.3 K/mm3 (1.8-7.8); Neutrophils % 71.2 % (37.0-80.0); Platelet Count 142 K/mm3 (142-424); Red Blood Count 3.32 M/mm3 (4.20-5.40); Red Cell Distribution Width 14.5 % (11.5-17.5); White Blood Count 4.6 K/mm3 (4.8-10.8)
[2018-07-21 07:28] LABS: Anion Gap 10.3 mEq/L (5-15); Potassium 3.3 mmoL/L (3.5-5.1)
[2018-07-21 07:50] LABS: Calcium 7.7 mg/dL (8.5-10.1)
--- NOTE | 2018-07-21 09:54 | Discharge Summary ---
General - General Admission date:: 07/20/18 Discharge date: 07/21/18 HPI HPI: 78-year-old white female with COPD, oxygen and nebulizer requiring, with frequent exacerbations, who has had cardiac disease with stent placement in March of this year. Has had an episode over the past couple of months after pain pump was placed with narcotic therapy of urinary retention and leg swelling, slightly ameliorated by the cessation of her pain medication through the pump a couple of weeks ago. She came to the emergency department last night with chest pain in the left lower chest radiating into the left anterior line, not exertionally related. Patient had negative troponins but had a moderately elevated d-dimer and was admitted to hospital for observation. This morning she feels better, and does report that she has pain with deep inspiration. Hospital Course Hospital Course: Patient has remained hemodynamically stable during admission. Initial workup with troponins found to be negative. Chest x-ray concerning for new pulmonary lesion and slight increase in size of lymph nodes. Pulmonary consult placed, recommended outpatient PET/CT. Pain reproducible on exam localizes to left rotator cuff with radiation up shoulder to neck and chest. Ruled out cardiac etiology during admission. Treated with antibiotics for possible pneumonia, plan to complete course in outpatient setting. Patient remained stable on home oxygen during admission. Additionally had Doppler of lower extremity's performed to rule out DVTs as possible cause of shortness of breath get a d- dimer. Duplex of bilateral lower extremity negative. Medically stable for discharge home. Objective Vital signs: Temp Pulse Resp BP Pulse Ox 97.9 F 77 19 107/51 L 95 07/21/18 08:00 07/21/18 08:00 07/21/18 08:00 07/21/18 08:00 07/21/18 08:00 - *Routine HEENT Exam Head: Present: normocephalic, atraumatic Eye: Present: EOMI, PERRL ENT: Present: mucous membranes moist, external ear normal Comments: BiTemporal wasting - *Routine Neck Exam Present: supple, full ROM. Absent: JVD - *Routine Respiratory Exam Present: accessory muscle use, prolonged expiratory phase, wheezes (Faint intermittent). Absent: rales, crackles - *Routine Cardiovascular Exam Present: RRR, Normal S1. Absent: murmur - *Routine Abdominal Exam Present: soft, normoactive bowel sounds. Absent: tenderness - *Routine Rectal Exam Patient deferred: visual exam - *Routine Exam Patient deferred: external exam - *Routine Extremities Exam Absent: cyanosis, clubbing, edema Comments: Left shoulder palpable anterior and posterior to joint, empty can test positive on left side with pain to resistance - *Routine Skin Exam Present: intact. Absent: cyanosis, erythema - *Routine Neurological Exam Present: alert, oriented X3, CN II-XII intact. Absent: altered mental status Results Labs on day of discharge: Labs from last 24 hours 07/21/18 07/21/18 07:06 07:06 WBC 4.6 L D RBC 3.32 L Hgb 9.6 L Hct 29.6 L MCV 89.1 MCH 28.8 MCHC 32.3 RDW 14.5 Plt Count 142 MPV 8.3 Neut % (Auto) 71.2 Lymph % (Auto) 22.3 Lane % (Auto) 6.2 Eos % (Auto) 0.1 Baso % (Auto) 0.3 Neut # (Auto) 3.3 Lymph # (Auto) 1.0 Lane # (Auto) 0.3 Eos # (Auto) 0.0 Baso # (Auto) 0.0 Sodium 144 Potassium 3.3 L Chloride 110 H Carbon Dioxide 27 Anion Gap 10.3 BUN 18 Creatinine 1.10 H Estimated Creat Clear 37 Estimated GFR 48 L Est GFR ( Amer) 58 L D Glucose 115 H Calcium 7.7 L D DS: Diagnosis - Discharge Diagnosis (1) Chest pain Status: Acute (2) Elevated d-dimer Status: Acute (3) Pneumonia, community acquired Status: Acute Discharge Plan - Patient Discharge Instructions ACTIVITY: Continue current activity DIET: continue same diet Patient Instructions: DI for Pneumonia -- Adult, DI for Chest Pain - Follow up Plan Follow up with: Sagar Liu MD [Staff Physician] - Disposition: Home, Self-Jail Medications: Home Medications Medication Instructions Recorded Confirmed Type Levothyroxine Sodium 75 mcg PO DAILY 10/22/17 07/20/18 History [Levothyroxine 75mcg (0.075mg) Tab] diphenhydrAMINE HCl [Benadryl] 25 mg PO DAILY 11/24/17 07/20/18 History Aspirin [Aspir 81] 81 mg PO DAILY 01/30/18 07/20/18 History raNITIdine HCl [Acid Control] 150 mg PO BID 01/30/18 07/20/18 History Albuterol Sulfate [Albuterol 2.5 mg IH TID 03/30/18 07/19/18 History 0.083% 2.5mg/3mL neb] Atorvastatin Calcium [Atorvastatin 80 mg PO DAILY 03/30/18 07/20/18 History 80mg Tab] Metoprolol Succinate 50 mg PO DAILY 03/30/18 07/20/18 History Mirtazapine [Remeron 15mg tablet] 15 mg PO HS 03/30/18 07/20/18 History Sertraline HCl [Zoloft 100mg 100 mg PO DAILY 07/20/18 07/20/18 History tablet] Tamsulosin HCl [Flomax 0.4mg 0.4 mg PO BID 07/20/18 07/20/18 History capsule] Prescriptions/Medication Reconciliation: New levoFLOXacin [Levaquin 500mg tab] 500 mg PO DAILY #7 tab Continue Levothyroxine Sodium [Levothyroxine 75mcg (0.075mg) Tab] 75 mcg PO DAILY diphenhydrAMINE HCl [Benadryl] 25 mg PO DAILY raNITIdine HCl [Acid Control] 150 mg PO BID Aspirin [Aspir 81] 81 mg PO DAILY Metoprolol Succinate 50 mg PO DAILY Mirtazapine [Remeron 15mg tablet] 15 mg PO HS Albuterol Sulfate [Albuterol 0.083% 2.5mg/3mL neb] 2.5 mg IH TID Sertraline HCl [Zoloft 100mg tablet] 100 mg PO DAILY Atorvastatin Calcium [Atorvastatin 80mg Tab] 80 mg PO DAILY Tamsulosin HCl [Flomax 0.4mg capsule] 0.4 mg PO BID
--- NOTE | 2018-07-21 11:00 | Consult Report ---
*Admission Date: 07/20/18 *Chief complaint: I had severe chest pain and was so short of breath. *History of present illness: Ms. Peters is a 78 old woman who has moderate chronic obstructive pulmonary disease with extensive emphysema on CT scan of the chest, complicated by exercise hypoxemia. I last saw her in October of this year at which time she was complaining mostly of left-sided burning pain beginning in her back and extending anteriorly over the chest. Sometimes the pain had a squeezing characteristic. It was not associated with exertion and was pretty much constantly there. There was dysesthesia on physical examination and I ordered rib and spine x-rays which were unremarkable. I referred her to the pain clinic for and they started a pump with morphine. She did not return to me thereafter and I understand that she was admitted because of severe pain and then sent to a senior care for rehab. She came in this time because the pain extended anteriorly on both sides of her chest, "like my bra was too tight but I was not aware any." This was associated with the acute onset of shortness of breath. Evaluation for pulmonary embolism disclosed no clots in the pulmonary arteries but a new right lower lobe infrahilar nodule associated with mild mediastinal adenopathy. Since admission, dyspnea has largely resolved. She is now on oxygen continuously at 2 L/min and I understand her saturations would fall from mid 90s to mid 80s if she just to the oxygen off for a few minutes. She has an occasional cough which is productive of small amounts of clear sputum at home and she is still smoking. Process on exertion was not a major problem when I saw her and it has been pain which has limited her in the last few months. She has constant symptoms of heartburn despite taking ranitidine. Her appetite has been fair and she does not think that she has lost any weight. [facility] History Medical History: Reports:: Coronary Artery Disease, Cerebrovascular Accident, Depression, Gastroesophageal Reflux Disease(GERD), Hyperlipidemia, Hypertension, Internal Pacemaker, Palpitations Denies:: Cancer, Diabetes Mellitus Type 1, Diabetes Mellitus Type 2, MRSA, Seizures Other Medical History: Reports: Cataracts, Thyroid Disease. Denies: Blood Transfusion Reaction Laterality Cases: Bilateral: Cataract Other Surgeries: Yes: Appendectomy, Cardiac Catheterization, Cholecystectomy, Hysterectomy-Total, Pacemaker, Thyroidectomy, Other (back surgery) Amputation: No Fractures: No - *Social History Educational Level: Completed High School Smoking Status: Current every day smoker Tobacco Type: cigarettes # Packs/Day (cigarettes): 1 #Yrs smoked (if former smoker): 60 Alcohol Intake: never Occupational Status: retired Housing: house Household Members: family - Psychiatric History Expresses thoughts of harming self/others: None Suicide Plan Description: No Plan Pschychiatric History:: Reports:: Depression *Family Hx:: Cancer, Coronary Artery Disease, Diabetes, Heart Attack, Hyperlipidemia, Hypertension, Stroke, Tuberculosis Review of Systems - Review of Systems Review of systems:: pertinent systems reviewed and negative unless documented below Meds Home Medications Medication Instructions Recorded Confirmed Type Levothyroxine Sodium 75 mcg PO DAILY 10/22/17 07/20/18 History [Levothyroxine 75mcg (0.075mg) Tab] diphenhydrAMINE HCl [Benadryl] 25 mg PO DAILY 11/24/17 07/20/18 History Aspirin [Aspir 81] 81 mg PO DAILY 01/30/18 07/20/18 History raNITIdine HCl [Acid Control] 150 mg PO BID 01/30/18 07/20/18 History Albuterol Sulfate [Albuterol 2.5 mg IH TID 03/30/18 07/19/18 History 0.083% 2.5mg/3mL neb] Atorvastatin Calcium [Atorvastatin 80 mg PO DAILY 03/30/18 07/20/18 History 80mg Tab] Metoprolol Succinate 50 mg PO DAILY 03/30/18 07/20/18 History Mirtazapine [Remeron 15mg tablet] 15 mg PO HS 03/30/18 07/20/18 History Sertraline HCl [Zoloft 100mg 100 mg PO DAILY 07/20/18 07/20/18 History tablet] Tamsulosin HCl [Flomax 0.4mg 0.4 mg PO BID 07/20/18 07/20/18 History capsule] Allergies Allergy/AdvReac Type Severity Reaction Status Date / Time aspirin [ASPIRIN] Allergy Intermediate I-ITCHING Verified 07/19/18 23:14 Penicillins [PENICILLINS] Allergy Intermediate I-RASH Verified 07/19/18 23:14 oxycodone [From PERCOCET] Allergy Unknown Gastrointestinal Verified 07/19/18 23:14 Upset egg Allergy Vomiting Verified 07/19/18 23:14 hydrocodone [From Lortab] Allergy Gastrointestinal Verified 07/19/18 23:14 Upset tramadol Allergy Unknown Verified 07/19/18 23:14 allergy reaction Exam Vital signs and Labs for Last 24 Hours: Temp Pulse Resp BP Pulse Ox 97.9 F 77 19 107/51 L 95 07/21/18 08:00 07/21/18 08:00 07/21/18 08:00 07/21/18 08:00 07/21/18 08:00 Laboratory Results - last 24 hr 07/21/18 07:06: WBC 4.6 L D, RBC 3.32 L, Hgb 9.6 L, Hct 29.6 L, MCV 89.1, MCH 28.8, MCHC 32.3, RDW 14.5, Plt Count 142, MPV 8.3, Neut % (Auto) 71.2, Lymph % (Auto) 22.3, Campbell % (Auto) 6.2, Eos % (Auto) 0.1, Baso % (Auto) 0.3, Neut # (Auto) 3.3, Lymph # (Auto) 1.0, Campbell # (Auto) 0.3, Eos # (Auto) 0.0, Baso # (Auto) 0.0 07/21/18 07:06: Sodium 144, Potassium 3.3 L, Chloride 110 H, Carbon Dioxide 27, Anion Gap 10.3, BUN 18, Creatinine 1.10 H, Estimated Creat Clear 37, Estimated GFR 48 L, Est GFR ( Amer) 58 L D, Glucose 115 H, Calcium 7.7 L D Ms. peters is a pleasant and articulate, elderly, chronically ill-appearing woman who is sitting up in bed at a 40 degree angle wearing oxygen at 2 L per by nasal cannula. HEENT: Sclerae clear; conjunctivae pale; external nares unremarkable; oropharynx unremarkable. Neck: No JVD; no adenopathy Chest: Symmetrical expansion; hyperesthesia over the left chest posteriorly and extending toward the axilla. Hyperresonance bilaterally. Good breath sounds and no adventitious sounds. Heart: Regular rhythm; no murmur Abdomen: Soft, nontender, no masses or organomegaly evident. Bowel sounds diminished. Skin: No rash Neurological: Grossly intact Extremities: No clubbing or edema I & O for Last 24 hours: Intake & Output 07/18/18 07/19/18 07/20/18 07/21/18 23:59 23:59 23:59 23:59 Intake Total 1515 / 1515 240 / 240 Balance 1515 / 1515 240 / 240 Weight 58.513 kg 56.019 kg Internal Medicine - CN: Reslt - Labs CBC & Chem 7: 07/21/18 07:06 07/21/18 07:06 Labs: Short CBC 07/21/18 Range/Units 07:06 WBC 4.6 L D (4.8-10.8) K/mm3 Hgb 9.6 L (12.2-16.2) g/dL Hct 29.6 L (37.0-47.0) % Plt Count 142 (142-424) K/mm3 BMP 07/21/18 07:06 Sodium 144 Potassium 3.3 L Chloride 110 H Carbon Dioxide 27 BUN 18 Creatinine 1.10 H Glucose 115 H Calcium 7.7 L D - ABG Interpretation Attestation ABG: I reviewed and interpreted this ABG. - Impressions I reviewed the CT scan of the chest performed yesterday and compared it to one from last fall. She has extensive emphysema as before and there is an apparently new nodule near a vessel in the right lower lobe. I think the mediastinal lymph nodes are a little larger than they were last year. There is extensive atherosclerosis of the aorta. She is anemic. Assessment and Plan (1) Chest pain Current visit: Yes Status: Acute Qualifiers: Chest pain type: precordial pain Qualified Code(s): R07.2 - Precordial pain Category: Medical Code(s): R07.9 - Chest pain, unspecified (2) Elevated d-dimer Current visit: Yes Status: Acute Category: Medical Code(s): R79.89 - Other specified abnormal findings of blood chemistry (3) Pneumonia, community acquired Current visit: No Status: Acute Category: Medical Code(s): J18.9 - Pneumonia, unspecified organism - Assessment and plan all Dx Assessment and Plan for all problems:: Ms. Peters has moderate chronic obstructive pulmonary disease and continued to smoke. Her major complaint relates to what sounds like radicular pain extending from the mid thoracic spine to the anterior chest. She also has an apparently new pulmonary nodule with possible adenopathy and malignancy is a possibility. I discussed this with her today. Although the CT scan of the chest did not demonstrate a pulmonary embolism, her d-dimer was elevated and I do think it would be important to get a venous duplex of the lower extremities. I also suggest a bone scan. She has not been anemic before to my knowledge and an evaluation for the cause of this will of course be necessary. I have ordered a PET/CT to investigate the nodule and adenopathy further and discussed follow-up bronchoscopy with her based upon the results of that test. I will follow-up thereafter. Thank you for the opportunity to participate in Ms. Power long.
--- NOTE | 2018-07-21 12:37 | Non-Invasive Vascular Report ---
"Venous Exam Indications: 782.3 Edema. Elevated d dimer. IMPRESSIONS 1. There is no evidence of significant Reflux. 2. No evidence of deep or superficial vein thrombosis involving the right lower extremity 3. No evidence of deep or superficial vein thrombosis involving the left lower extremity Complete lower extremity venous duplex evaluation. Doppler flow study including spectral analysis, color and smith scale imaging. Location: Bedside. Patient status: Inpatient. CRITICAL FINDINGS - Reported to: SHAHID CERON - Read back and verified. - 07/21/18 - 1230 - NONE Tables: Venous flow and imaging: + +-------+ + |Location |Overall|Flow properties | + +-------+ + |Right common femoral |Patent |Normal phasicity; spontaneous; | | | |normal augmentation; compressible| + +-------+ + |Right saphenofemoral junction|Patent |Compressible | + +-------+ + |Right profunda femoral |Patent |Compressible | + +-------+ + |Right femoral |Patent |Normal phasicity; spontaneous; | | | |normal augmentation; | | | |compressible; no reflux | + +-------+ + |Right greater saphenous |Patent |Normal phasicity; spontaneous; | | | |normal augmentation; compressible| + +-------+ + |Right popliteal |Patent |Normal phasicity; spontaneous; | | | |normal augmentation; compressible| + +-------+ + |Right posterior tibial |Patent |Compressible | + +-------+ + |Right peroneal |Patent |Compressible | + +-------+ + |Right gastrocnemius |Patent |Compressible | + +-------+ + |Right soleal |Patent |Compressible | + +-------+ + |Left common femoral |Patent |Normal phasicity; spontaneous; | | | |normal augmentation; compressible| + +-------+ + |Left saphenofemoral junction |Patent |Compressible | + +-------+ + |Left profunda femoral |Patent |Compressible | + +-------+ + |Left femoral |Patent |Normal phasicity; spontaneous; | | | |normal augmentation; compressible| + +-------+ + |Left greater saphenous |Patent |Normal phasicity; spontaneous; | | | |normal augmentation; compressible| + +-------+ + |Left popliteal |Patent |Normal phasicity; spontaneous; | | | |normal augmentation; compressible| + +-------+ + |Left posterior tibial |Patent |Compressible | + +-------+ + |Left peroneal |Patent |Compressible | + +-------+ + |Left gastrocnemius |Patent |Compressible | + +-------+ + |Left soleal |Patent |Compressible | + +-------+ + (Report amended ) Electronically signed by: Jacky Keen [id number]"
== END 2018-07-21 14:33 | disposition home or self-care (01) ==
LOC: ER 23:07 → 2ND 23:07
PROVIDERS: ADMIT Emergency Medicine; ATTEND Internal Medicine Adolescent Medicine

== ENCOUNTER → 2018-08-11 09:47 | Outpatient (CLI) | payer MEDICARE, OTHER, SELFPAY ==
--- NOTE | 2018-08-11 09:51 | NM_ITS ---
NM bone scan whole body Ordering Physician: Sagar Ospina MD Patient Age: 78 years: Female HISTORY: ITS.REASON: PULMONARY NODULE . A patient with back pain and other areas of pain-.. In addition to lung nodule TECHNIQUE: Total-body bone scan imaging performed 3 hours following the administration of 27.3 mCi Tc MDP. COMPARISON :. CT chest July 20 & CT abdomen July 08, 2018 FINDINGS No metastatic disease is evident. There is increased activity right aspect of the narrowed degenerated L4/5 disc space reflecting the prominent degenerative disc changes here as seen on prior June 2018 CT abdomen/pelvis Mild gradual dextrocurvature Thoracolumbar region. Ribs T-spine unremarkable. Multiple areas increased activity due to degenerative arthritic features: Activity at the medial aspect of both knees reflect arthritic changes. Activity Lateral left knee most likely due to arthritic changes. Slight consider plain film of right knee to fully confirm. Activity at left ankle joint arthritic in nature. Increased activity at the left AC joint is arthritic. . Normal renal activity observed IMPRESSION: ......... No evidence of metastatic disease . Activity related to degenerative changes as detailed in body of report:: DJD At both knees, left ankle, left AC joint; and degenerated L4/5 disc
--- NOTE | 2018-08-11 10:21 | HMH.ITSHM ---
Current Home Medications as stated by this patient Mica Steve or community engagement representative. []RANITIDINE LEVOFLOXACIN DIPHENHYDRAMINE TAMSULOSIN SERTRALINE MIRTAZAPINE LEVOTHYROXINE ATORVASTATIN ASA ALBUTEROL
== END ==
PROVIDERS: PCP Internal Medicine Adolescent Medicine; Visit Provider Internal Medicine
DX: R91.1 Solitary pulmonary nodule (principal)
CPT/HCPCS: 78306; A9503

== ENCOUNTER → 2018-09-28 16:13 | Outpatient (CLI) | payer MEDICARE, OTHER, SELFPAY ==
[2018-09-28 16:32] LABS: Basophils % 0.6 % (0.1-2.0); Eosinophils # 0.3 K/mm3 (0.0-0.4); Eosinophils % 5.2 % (0.1-12.0); Hematocrit 38.8 % (37.0-47.0); Hemoglobin 12.4 g/dL (12.2-16.2); Lymphocytes # 1.3 K/mm3 (0.7-4.5); Lymphocytes % 20.1 % (10-50); Mean Corpuscular HGB Conc 31.9 g/dL (31.8-35.4); Mean Corpuscular Volume 87.6 fl (81-99); Mean Platelet Volume 7.8 fl (7.4-10.4); Monocytes # 0.4 K/mm3 (0.1-1.0); Monocytes % 6.4 % (1.7-9.3); Neutrophils # 4.3 K/mm3 (1.8-7.8); Neutrophils % 67.6 % (37.0-80.0); Platelet Count 255 K/mm3 (142-424); Red Blood Count 4.43 M/mm3 (4.20-5.40); Red Cell Distribution Width 15.7 % (11.5-17.5); White Blood Count 6.3 K/mm3 (4.8-10.8)
[2018-09-28 17:49] LABS: Alanine Aminotransferase 50 U/L (12-78); Albumin Level 3.6 gm/dL (3.4-5.0); Alkaline Phosphatase 345 U/L (46-116); Anion Gap 13.7 mEq/L (5-15); Aspartate Amino Transferase 21 U/L (15-37); Bilirubin,Total 0.4 mg/dL (0.2-1.0); Blood Urea Nitrogen 20 mg/dL (7-18); Calcium 9.2 mg/dL (8.5-10.1); Carbon Dioxide 29 mmol/L (21.0-32.0); Chloride 103 mmol/L (98-107); Creatinine,Serum 1.23 mg/dL (0.55-1.02); Estimated Glomerular Filt Rate 42 ml/min (>60); GFR (African American) 51 ML/MIN (>60); Globulin 3.6 gm/dl (1.3-3.2); Glucose 108 mg/dL (74-106); Potassium 3.7 mmoL/L (3.5-5.1); Sodium 142 mmol/L (136-145); Total Protein,Serum 7.2 gm/dL (6.4-8.2)
== END ==
PROVIDERS: Visit Provider Internal Medicine Adolescent Medicine
DX: R04.2 Hemoptysis (principal)
CPT/HCPCS: 36415; 80053; 85025

== ENCOUNTER → 2018-11-13 09:42 | Outpatient (POV) | payer MEDICARE, OTHER, SELFPAY ==
[2018-11-13 10:02] VITALS: BP 120/99; PULSE 78; RESP 18; O2SAT 98; BMI 17.4
--- NOTE | 2018-11-13 10:24 | P.CONS_ITS ---
[facility] Pain Management SOAP Note Subjective:: This patient is a pleasant 78-year-old white female who has an intrathecal morphine pain pump in place. She continues to have severe side effects with her intrathecal morphine infusion. Initially she was pain-free however she developed lower extremity swelling with urinary retention. She was hospitalized for urinary retention. She now has increasing pain and is unable to tolerate opioid intrathecal therapy. She was also recently diagnosed with lung cancer. She is starting to undergo treatment. Given her intolerance to opioid therapy I believe she is a candidate for intrathecal ziconotide. We will seek approval for intrathecal ziconotide and start her off with 0.5 mcg boluses with periodic flow every 12 hours. Objective:: Alert and oriented x3 no acute distress. Patient does have an antalgic gait. Motor strength of the lower extremities is 5/5. There is no gross sensory deficit. Patient does have swelling of both lower extremities. Assessment of her intrathecal pump shows intrathecal morphine at 1 mg/mL currently going at 0.04 mg/day. Assessment:: Degenerative disease of lumbar spine with lumbar radiculopathy symptoms with severe side effects with current intrathecal morphine infusion. Recent diagnosis of lung carcinoma. Plan:: Patient is intolerant to intrathecal opioid therapy with severe side effects. Patient also has a recent diagnosis of lung cancer. We will seek approval for intrathecal ziconotide. We will switch her out to intrathecal ziconotide and start her out on periodic flow with 0.5 mcg boluses every 12 hours.
== END ==
PROVIDERS: PCP Internal Medicine Adolescent Medicine; Visit Provider Anesthesiology
DX: M51.16 Intervertebral disc disorders with radiculopathy, lumbar region (principal); T40.2X5D Adverse effect of other opioids, subsequent encounter; C34.90 Malignant neoplasm of unspecified part of unspecified bronchus or lung
CPT/HCPCS: 99212

== ENCOUNTER → 2018-12-07 13:59 | Outpatient (POV) | payer MEDICARE, OTHER, SELFPAY ==
[2018-12-07 14:25] VITALS: BP 89/55; PULSE 64; RESP 18; O2SAT 98; BMI 16.7
--- NOTE | 2018-12-08 08:10 | HMH.PMPROC ---
- Procedure Date: 12/07/18 Time: 15:00 Anesthesiologist:: Dorita De Luna APRN Complications:: None Pre-procedure Diagnosis:: Degenerative disc disease lumbar spine with lumbar radiculopathy Post-procedure Diagnosis:: Same Indications for Procedure:: Patient is a very [id number] white female who presents today for intrathecal pain pump reprogram. Patient had side effects to her morphine so we switched her to Dilaudid it started her at 0.05 mg/day. Patient states she has had a resolution of her side effects however she has quite a bit of pain. 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 The patient was taken to the procedure room where noninvasive monitoring was placed including noninvasive blood pressure cuff and pulse oximeter. Patient's pump was interrogated and reprogrammed. The infusion rate was increased to 0.0625 mg of Dilaudid a day. The patient tolerated the procedure well. Plan and Disposition:: I will see the patient back in 2 weeks reassess her symptoms at that time. Will make any additional adjustments if necessary. Dr. Carballo has reviewed this note and agrees with this plan of care. This note was dictated using voice recognition software and may contain errors or omissions
--- NOTE | 2018-12-08 08:18 | P.PCN_ITS ---
- Procedure Date: 12/07/18 Time: 15:00 Anesthesiologist:: Dorita De Luna APRN Complications:: None Pre-procedure Diagnosis:: Degenerative disc disease lumbar spine with lumbar radiculopathy Post-procedure Diagnosis:: Same Indications for Procedure:: Patient is a very -[id number] white female who presents today for intrathecal pain pump reprogram. Patient had side effects to her morphine so we switched her to Dilaudid it started her at 0.05 mg/day. Patient states she has had a resolution of her side effects however she has quite a bit of pain. 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 The patient was taken to the procedure room where noninvasive monitoring was placed including noninvasive blood pressure cuff and pulse oximeter. Patient's pump was interrogated and reprogrammed. The infusion rate was increased to 0.0625 mg of Dilaudid a day. The patient tolerated the procedure well. Plan and Disposition:: I will see the patient back in 2 weeks reassess her symptoms at that time. Will make any additional adjustments if necessary. Dr. Carballo has reviewed this note and agrees with this plan of care. This note was dictated using voice recognition software and may contain errors or omissions
== END ==
PROVIDERS: PCP Internal Medicine Adolescent Medicine; Visit Provider Clinical Nurse Specialist Family Health
DX: M51.16 Intervertebral disc disorders with radiculopathy, lumbar region (principal)
CPT/HCPCS: 62368

== ENCOUNTER → 2019-01-01 11:34 | Outpatient (POV) | payer MEDICARE, OTHER, SELFPAY ==
[2019-01-01 12:21] VITALS: BP 110/60; PULSE 74; RESP 18; O2SAT 96; BMI 17.2
--- NOTE | 2019-01-01 12:33 | HMH.PAINSOAP ---
[facility] Pain Management SOAP Note Subjective:: This patient is a pleasant 78-year-old white female who we are seeing for low back pain with lumbar radicular symptoms. We recently switched her from intrathecal morphine to intrathecal Dilaudid. She is doing much better on her intrathecal Dilaudid. She has significantly less side effects and better control of her pain symptoms. Current daily dose of 0.0625 mg/day of intrathecal Dilaudid. She recently fell and fractured some ribs so she does have some increasing pain on her left chest wall. We will see if we can get her a Lidoderm patch to help with these pain symptoms. Other than that she would like to stay at her current dose of intrathecal Dilaudid of 0.0625 mg/day. We will continue this and follow-up with her in 1 month. Objective:: Alert and oriented x3 no acute distress. Patient does have an antalgic gait. Motor strength of the lower extremities is 5/5. There is no gross sensory deficit. Tenderness of the left chest wall where she previously had rib fractures. Assessment:: Degenerative disc disease of lumbar spine with lumbar radiculopathy symptoms. With intrathecal Dilaudid pain pump in place. Plan:: Other than that she would like to stay at her current dose of intrathecal Dilaudid of 0.0625 mg/day. We will continue this and follow-up with her in 1 month.
== END ==
PROVIDERS: PCP Internal Medicine Adolescent Medicine; Visit Provider Anesthesiology
DX: M51.16 Intervertebral disc disorders with radiculopathy, lumbar region (principal)
CPT/HCPCS: 99212

== ENCOUNTER → 2019-01-25 14:33 | Outpatient (POV) | payer MEDICARE, OTHER, SELFPAY ==
--- NOTE | 2019-01-25 14:49 | P.PCN_ITS ---
- Procedure Date: 01/25/19 Time: 14:47 Anesthesiologist:: Dorita De Luna APRN Complications:: None Pre-procedure Diagnosis:: Degenerative disc disease lumbar spine with lumbar radiculopathy Post-procedure Diagnosis:: Same Indications for Procedure:: Patient is a pleasant 78-year-old white female who presents today for intrathecal pain pump reprogram. Patient was switched from intrathecal morphine to Dilaudid she is a current daily dose of 0.0625 mg/day. She states she has had a significant decrease in side effects. Patient's no longer having swelling or any issues with urinary retention. We will increase her today to 0.1 mg/day. She rates her pain a 7 out of 10. Physical Exam General: Alert and oriented x3, no acute distress, pleasant and cooperative, [on room air] Lungs: Resps E/U, Symmetrical chest expansion, Eyes: PERRL Musculoskeletal: Flexion and extension of lumbar spine somewhat guarded secondary to pain, deep tendon reflexes normal, strength in upper and lower extremities [5/5], [abnormal gait noted] Neurological: speech clear, city controller equal, no gross sensory deficits Procedure Details:: Informed consent was obtained and the risk and benefits of the procedure were explained to the patient. The patient was taken to the procedure room where noninvasive monitoring was placed including noninvasive blood pressure cuff and pulse oximeter. Patient's pump was interrogated and reprogrammed. The infusion rate was increased to 0.1 mg/day. The patient tolerated the procedure well. Plan and Disposition:: Patient is instructed to call the office if she has any issues prior to her next appointment. We will see her at her next intrathecal pain pump refill and reprogram. Dr. Carballo has reviewed this note and agrees with this plan of care. This note was dictated using voice recognition software and may contain errors or omissions
[2019-01-25 15:00] VITALS: BP 132/63; PULSE 66; RESP 18; O2SAT 98; BMI 17.2
== END ==
PROVIDERS: PCP Internal Medicine Adolescent Medicine; Visit Provider Clinical Nurse Specialist Family Health
DX: M51.16 Intervertebral disc disorders with radiculopathy, lumbar region (principal)
CPT/HCPCS: 62368

== ENCOUNTER → 2019-01-25 14:56 | Outpatient (CLI) | payer MEDICARE, OTHER, SELFPAY ==
[2019-01-25 15:41] LABS: Basophils # 0.1 K/mm3 (0-0.2); Basophils % 1.1 % (0.1-2.0); Eosinophils # 0.4 K/mm3 (0.0-0.4); Eosinophils % 7.5 % (0.1-12.0); Hemoglobin 13.1 g/dL (12.2-16.2); Lymphocytes # 1.4 K/mm3 (0.7-4.5); Lymphocytes % 24.7 % (10-50); Mean Corpuscular HGB Conc 33.5 g/dL (31.8-35.4); Mean Corpuscular Hemoglobin 29.1 pg (27.0-31.2); Mean Corpuscular Volume 86.9 fl (81-99); Mean Platelet Volume 7.9 fl (7.4-10.4); Monocytes # 0.4 K/mm3 (0.1-1.0); Monocytes % 6.6 % (1.7-9.3); Neutrophils # 3.4 K/mm3 (1.8-7.8); Neutrophils % 60.2 % (37.0-80.0); Platelet Count 151 K/mm3 (142-424); Red Blood Count 4.49 M/mm3 (4.20-5.40); Red Cell Distribution Width 14.9 % (11.5-17.5); White Blood Count 5.6 K/mm3 (4.8-10.8)
[2019-01-25 18:05] LABS: Alanine Aminotransferase 83 U/L (12-78); Albumin Level 3.4 gm/dL (3.4-5.0); Alkaline Phosphatase 344 U/L (46-116); Aspartate Amino Transferase 58 U/L (15-37); Bilirubin,Total 0.4 mg/dL (0.2-1.0); Blood Urea Nitrogen 23 mg/dL (7-18); Calcium 8.6 mg/dL (8.5-10.1); Carbon Dioxide 29 mmol/L (21.0-32.0); Chloride 102 mmol/L (98-107); Creatinine,Serum 1.08 mg/dL (0.55-1.02); Estimated Glomerular Filt Rate 49 ml/min (>60); Free Thyroxine Index 3.5 ug/dL (5.93-13.13); GFR (African American) 59 ML/MIN (>60); Globulin 3.3 gm/dl (1.3-3.2); Glucose 95 mg/dL (74-106); Sodium 143 mmol/L (136-145); T4 (Thyroxine) 10.5 ug/dl (4.7-13.3); Thyroid Stimulating Hormone 5.49 uIU/ml (0.358-3.740); Total Protein,Serum 6.7 gm/dL (6.4-8.2); Triiodothryronine (T3) Uptake 33 % (31-39)
== END ==
PROVIDERS: Visit Provider Internal Medicine Adolescent Medicine
DX: R63.4 Abnormal weight loss (principal); I88.9 Nonspecific lymphadenitis, unspecified; E03.9 Hypothyroidism, unspecified
CPT/HCPCS: 36415; 62368; 80053; 84436; 84443; 84479; 85025

== ENCOUNTER → 2019-03-02 12:59 | Outpatient (CLI) | payer MEDICARE, OTHER, SELFPAY ==
--- NOTE | 2019-03-02 13:04 | NVE_ITS ---
Venous Exam Indications: 729.81 Swelling of limb. IMPRESSIONS 1. There is no evidence of significant Reflux. 2. No evidence of deep or superficial vein thrombosis involving the left lower extremity History: Risk factors: Current tobacco use. Malignancy: Lung Ca. Left lower extremity venous duplex evaluation. Doppler flow study including spectral analysis, color and smith scale imaging. CRITICAL FINDINGS - Reported to: Loy Liu's office - 03/02/2019 - 13:30 pm - Neg for DVT Tables: Venous flow and imaging: + +-------+ + Location Overall Flow properties + +-------+ + Left common femoral Patent Normal phasicity; spontaneous; normal augmentation; compressible + +-------+ + Left saphenofemoral junction Patent Compressible + +-------+ + Left profunda femoral Patent Compressible + +-------+ + Left femoral Patent Normal phasicity; spontaneous; normal augmentation; compressible + +-------+ + Left greater saphenous Patent Normal phasicity; spontaneous; normal augmentation; compressible + +-------+ + Left popliteal Patent Normal phasicity; spontaneous; normal augmentation; compressible + +-------+ + Left posterior tibial Patent Compressible + +-------+ + Left peroneal Patent Compressible + +-------+ + Left gastrocnemius Patent Compressible + +-------+ + Left soleal Patent Compressible + +-------+ + (Report amended ) Electronically signed by: Jacky Keen [id number]
== END ==
PROVIDERS: PCP Internal Medicine Adolescent Medicine; Visit Provider Internal Medicine Adolescent Medicine
DX: M79.605 Pain in left leg (principal); M79.89 Other specified soft tissue disorders
CPT/HCPCS: 93971

== ENCOUNTER → 2019-09-14 10:03 | Outpatient (CLI) | payer MEDICARE, OTHER, SELFPAY ==
[2019-09-14 10:34] LABS: Basophils % 0.9 % (0.1-2.0); Eosinophils # 0.3 K/mm3 (0.0-0.4); Hematocrit 43.9 % (37.0-47.0); Hemoglobin 13.7 g/dL (12.2-16.2); Lymphocytes # 1.8 K/mm3 (0.7-4.5); Mean Corpuscular HGB Conc 31.1 g/dL (31.8-35.4); Mean Corpuscular Hemoglobin 28.2 pg (27.0-31.2); Mean Corpuscular Volume 90.7 fl (81-99); Mean Platelet Volume 8.8 fl (7.4-10.4); Monocytes # 0.3 K/mm3 (0.1-1.0); Monocytes % 6.2 % (1.7-9.3); Neutrophils # 2.2 K/mm3 (1.8-7.8); Platelet Count 146 K/mm3 (142-424); Red Blood Count 4.84 M/mm3 (4.20-5.40); Red Cell Distribution Width 14.5 % (11.5-17.5); White Blood Count 4.6 K/mm3 (4.8-10.8)
[2019-09-14 12:12] LABS: Alanine Aminotransferase 37 U/L (12-78); Albumin Level 3.3 gm/dL (3.4-5.0); Albumin/Globulin Ratio 0.9 (1.1-1.8); Alkaline Phosphatase 138 U/L (46-116); Anion Gap 12.4 mEq/L (5-15); Aspartate Amino Transferase 40 U/L (15-37); Bilirubin,Total 0.5 mg/dL (0.2-1.0); Blood Urea Nitrogen 22 mg/dL (7-18); Calcium 8.9 mg/dL (8.5-10.1); Carbon Dioxide 31 mmol/L (21.0-32.0); Chloride 101 mmol/L (98-107); Creatinine,Serum 1.18 mg/dL (0.55-1.02); Estimated Glomerular Filt Rate 44 ml/min (>60); GFR (African American) 53 ML/MIN (>60); Globulin 3.6 gm/dl (1.3-3.2); Glucose 92 mg/dL (74-106); Potassium 4.4 mmoL/L (3.5-5.1); Sodium 140 mmol/L (136-145); Thyroid Stimulating Hormone 4.74 uIU/ml (0.358-3.740); Total Protein,Serum 6.9 gm/dL (6.4-8.2)
[2019-09-15 18:20] LABS: Prealbumin 15 mg/dL (9-32)
== END ==
PROVIDERS: Visit Provider Internal Medicine Adolescent Medicine
DX: R94.6 Abnormal results of thyroid function studies (principal)
CPT/HCPCS: 36415; 80053; 84134; 84443; 85025

== ENCOUNTER → 2019-09-20 10:03 | Outpatient (CLI) | payer MEDICARE, OTHER, SELFPAY ==
--- NOTE | 2019-09-20 10:06 | CT_ITS ---
PROCEDURE: CT CHEST W CON CLINCAL INDICATION: SQUAMOUS CELL CARCINOMA Follow-up lung cancer COMPARISON: ABDPELWO CT abdomen pelvis wo con from 07/08/[address] angio chest from 07/20/2018 [id number] XR ribs LT min 3V w CXR1V from 12/22/2018 TECHNIQUE: IV Contrast: 75ml Optiray 350 Axial images obtained with sagittal and coronal reformats. All CT scans at the facility use one or more dose reduction, viz: automated exposure control, ma/kV adjustment per patient size (including targeted exams where dose is matched to indication, i.e. head), or iterative reconstruction technique. FINDINGS: There are few small mediastinal lymph nodes in the precarinal region some of which contain calcium. These are not significantly changed. No mediastinal or hilar mass. Coronary artery calcifications and/or stents noted. There are centrilobular emphysematous changes with COPD with scarring. The previously noted spiculated nodule in the right lower lobe is no longer apparent. There is a new spiculated density within the lingula. This measures 3 by 2.4 cm. This was not present on the previous exam but could be related to some parenchymal scarring having a somewhat flat like appearance. Neoplasm is not excluded. Follow-up is suggested. No acute bony anomalies. Upper abdominal images show a nodular density along the posterior aspect of the right hepatic lobe contiguous with the liver. This is not significantly changed measuring 12 mm. There is some ectasia of the infrarenal abdominal aorta measuring up to 2 cm. Atherosclerotic changes are present involving the proximal renal arteries and the proximal aspect of the celiac artery with moderate stenosis at this celiac origin. Is difficult to determine the definite percentage of narrowing due to overlying calcific plaque and the non angiographic technique. IMPRESSION: 1. Previously noted spiculated lesion of the right lower lobe is no longer apparent 2. Centrilobular emphysema with COPD and scattered areas of scarring. 3. There is an irregular opacity in the which is developed in the lingula and could be postinflammatory scarring or neoplastic. PET CT may provide further evaluation if clinically warranted. If this is not performed then, follow-up exam in 3 months is suggested. Also if patient has any other studies perform since 07/20/2018 then, they may provide further evaluation Dictated by: Jacky Keen MD 09/21/2019 13:14 Electronically signed by Jacky Keen MD in [place] 09/21/2019 13:14
== END ==
PROVIDERS: PCP Internal Medicine Adolescent Medicine; Visit Provider Internal Medicine Adolescent Medicine
DX: C34.91 Malignant neoplasm of unspecified part of right bronchus or lung (principal)
CPT/HCPCS: 71260; Q9967

== ENCOUNTER → 2019-12-13 14:55 | Outpatient (POV) | payer MEDICARE, OTHER, SELFPAY ==
[2019-12-13 15:46] VITALS: BP 116/85; PULSE 90; RESP 18; TEMP 36.6; O2SAT 97; BMI 16.7
--- NOTE | 2019-12-13 16:05 | HMH.PMPROC ---
- Procedure Date: 12/13/19 Time: 15:00 Anesthesiologist:: Dorita De Luna APRN Complications:: None Pre-procedure Diagnosis:: Degenerative disc disease lumbar spine with lumbar radiculopathy Post-procedure Diagnosis:: Same Indications for Procedure:: Patient is a pleasant 79-year-old white female who presents today requesting her intrathecal pain pump being turned off. She is at Dilaudid 0.15 mg/day. She states it is unhelpful. Patient would like to be put back on gabapentin. We will turn her off today. Procedure Details:: Informed consent was obtained and the risk and benefits of the procedure were explained to the patient. The patient was taken to the procedure room where noninvasive monitoring was placed including noninvasive blood pressure cuff and pulse oximeter. Patient's pump was interrogated and reprogrammed. The infusion rate was decreased to 0 mg/day. The patient tolerated the procedure well. Plan and Disposition:: I will see the patient back in 1 week to reassess her symptoms at that time. She is been instructed to call the office if she has any issues prior to her next appointment. We specifically discussed risk factors for Covid-19 including age, heart or lung disease, diabetes, immunosuppression and travel. We also discussed that NSAIDs may worsen Covid-19 infection symptoms and that they should not be used to treat Covid-19 symptoms. Patient was also informed that corticosteroids in any form oral or injectable will decrease immune response and may increase risk of Covid-[address] Carballo has reviewed this patient's chart and this note and agrees with plan of care. Patient has been instructed to call the office if they have any issues prior to the next appointment.
== END ==
PROVIDERS: PCP Internal Medicine Adolescent Medicine; Visit Provider Clinical Nurse Specialist Family Health
DX: M51.16 Intervertebral disc disorders with radiculopathy, lumbar region (principal)
CPT/HCPCS: 62368

== ENCOUNTER → 2020-01-10 09:41 | Outpatient (CLI) | payer MEDICARE, OTHER, SELFPAY ==
[2020-01-10 10:22] LABS: Basophils % 0.8 % (0.1-2.0); Eosinophils # 0.2 K/mm3 (0.0-0.4); Eosinophils % 4.7 % (0.1-12.0); Hematocrit 43.9 % (37.0-47.0); Hemoglobin 14.3 g/dL (12.2-16.2); Lymphocytes # 1.6 K/mm3 (0.7-4.5); Lymphocytes % 31.4 % (10-50); Mean Corpuscular HGB Conc 32.6 g/dL (31.8-35.4); Mean Corpuscular Hemoglobin 28.8 pg (27.0-31.2); Mean Corpuscular Volume 88.3 fl (81-99); Mean Platelet Volume 8.4 fl (7.4-10.4); Monocytes # 0.3 K/mm3 (0.1-1.0); Monocytes % 5.7 % (1.7-9.3); Neutrophils # 2.9 K/mm3 (1.8-7.8); Neutrophils % 57.4 % (37.0-80.0); Platelet Count 130 K/mm3 (142-424); Red Blood Count 4.97 M/mm3 (4.20-5.40); Red Cell Distribution Width 15.2 % (11.5-17.5)
[2020-01-10 11:29] LABS: Chloride 101 mmol/L (98-107); Potassium 4.6 mmoL/L (3.5-5.1); Sodium 137 mmol/L (136-145)
[2020-01-10 11:32] LABS: Anion Gap 9.6 mEq/L (5-15); Blood Urea Nitrogen 27 mg/dl (7-17); Carbon Dioxide 31 mmol/L (22.0-30.0); Estimated Glomerular Filt Rate 43 ml/min (>60); GFR (African American) 52 ML/MIN (>60)
[2020-01-10 11:38] LABS: Calcium 9.2 mg/dl (8.4-10.2)
[2020-01-10 11:45] LABS: Glucose 103 mg/dl (74-100)
[2020-01-12 11:03] LABS: Covid-19 Nasal PCR Sendout Lex NOT DETECTED
== END ==
PROVIDERS: Visit Provider Surgery
DX: Z01.818 Encounter for other preprocedural examination (principal); M51.36 Other intervertebral disc degeneration, lumbar region
CPT/HCPCS: 36415; 80048; 85025; U0004

== ENCOUNTER 2020-01-12 06:41 | Day surgery (SDC) | payer MEDICARE, OTHER, SELFPAY ==
--- NOTE | 2020-01-07 08:40 | SUR.PREOP ---
01/07/2020 @ 0840--PHONE CALL MADE TO PATIENT. PATIENT UNDERSTANDS THAT LAB WORK AND COVID TESTING NEEDS TO BE COMPLETED @ 0930 ON 01/10/2020. PATIENT UNDERSTANDS IF LAB WORK AND COVID-19 TESTS ARE NOT COMPLETED BY 12PM ON THAT DATE, THE SURGERY SCHEDULED WILL BE CANCELLED AND RESCHEDULED FOR ANOTHER TIME.
[2020-01-11 08:28] VITALS: BMI 15.0
[2020-01-12] VITALS (13 sets, daily range): BP systolic 97–154; BP diastolic 50–79; PULSE 68–75; RESP 14–20; TEMP 36.2–36.4; O2SAT 89–98
--- NOTE | 2020-01-12 07:20 | P.PN_ITS ---
[facility] Anesthesia Checklist - Patient Identification Patient Identification: Arm Band, Verbal (Name & ) - Structural Data Admitted From: Home Planned Operative Procedure/s: Removal of IT pain pump generator and catheter Consent for Planned Operative Procedure(s) Verified: Yes Verified Documents: Surgical Consent, History and Physical - NPO Status Verified Time NPO: 16:00 - Chart Verification Results Verified: CBC, BMP (and toxicology) - Additional verifications Anesthesia Reactions: No Hx Blood Transfusions: No Blood Transfusion Reaction: No - Airway Assessment C-Spine Mobility Assessed: Yes TMJ Mobility Assessed: Yes Dentition: Dentures-good fit (removed) - Neurological Assessment Level of Consciousness: Awake, Alert, Appropriate, Follows Commands Hx Seizures: No Numbness or tingling in extremities: No - Anesthesia Plan Anesthesia Risk discussed: Yes Anesthesia Plan: Verified ASA Class: III Anesthesia Type: General [facility] History I have reviewed the patient's past medical history: Yes Medical History: Reports:: Cancer (lung ca), Chronic Obstructive Pulmonary Disease (COPD), Coronary Artery Disease, Depression, Gastroesophageal Reflux Disease(GERD), Hyperlipidemia, Hypertension, Palpitations Denies:: Diabetes Mellitus Type 1, Diabetes Mellitus Type 2, Internal Pace maker, MRSA, Seizures *Have you ever received a pneumonia vaccine?: Yes *Have you received a flu vaccine this season?: Yes Other Medical History: Reports: Cataracts, Chemotherapy, Hypothyroidism, Radiation Therapy, Thyroid Disease. Denies: Blood Transfusion Reaction Anesthesia experience/problems:: none Other Surgeries: Yes: Appendectomy, Cardiac Catheterization, Cholecystectomy, Coronary Stent, Hysterectomy-Total, Thyroidectomy, Other (back surgery). No: Pacemaker Amputation: No Fractures: No - *Social History Educational Level: Completed High School Smoking Status: Current every day smoker Tobacco Type: cigarettes # Packs/Day (cigarettes): 1 #Yrs smoked (if former smoker): 60 Alcohol Intake: never Substance Use Type: denies use *Occupational Status:: retired Housing: house Household Members: family *Travel in the last 8 weeks: None - Psychiatric History Pschychiatric History:: Reports:: Depression Family Hx:: No significant family history
--- NOTE | 2020-01-12 08:55 | P.OP_ITS ---
Date of procedure: 01/12/20 Pre-op Diagnosis:: Desires removal of pain pump generator Post-op Diagnosis:: Same Procedure performed:: Explantation of pain pump generator Surgeon:: Eugenio Jacobo MD PROFESSOR OF ANTHROPOLOGY:: Fabian Peters, Tone Amato, Bob Garcia, Leo Hall, Mo Anesthesia: LMA Estimated blood loss (mL): 5 Operative findings:: Normal-appearing pump Operative note:: Once adequate general anesthesia was obtained the patient was placed on her side and her abdomen in the area of the pump was prepped and draped in a sterile fashion. An incision was made over the generator and carried out the skin and subcutaneous tissues. Generator was delivered from the incision without difficulty. The catheter was then amputated and ligated with a silk suture. Pocket irrigated with antibiotic solution. Subcutaneous tissues closed with interrupted stitches of 2-0 Vicryl. Skin closed with 4-0 nylon sutures. Skin glue and a sterile dressing applied to the wound. Wound was also locally anesthetized with 1% Xylocaine with epinephrine. Binder applied. The patient tolerated the procedure well and was taken to the recovery room in stable condition. Upon recovery she will be discharged home will follow-up in the clinic in 1 week. Antibiotic x1 week per protocol. The patient tolerated the procedure well. Will be contacted for any concerns Condition: stable Disposition: PACU Complications:: None
--- NOTE | 2020-01-12 08:56 | P.PN_ITS ---
[facility] Anesthesia Record Part I Intake, IV Amount: 700 Estimated blood loss (mL): 5 Urine output (mL): 0 Blood Pressure: 118/73 SaO2: 98 Pulse Rate: 68 Respiratory Rate: 16 Temperature: 97.1 F Patient is:: Drowsy, Stable Stable to PACU at:: 08:50
--- NOTE | 2020-01-12 16:10 | P.PN_ITS ---
[facility] Anesthesia Record Part II Discharge Time: 09:30 Destination: Surgical Day Care (OP Surgery) PACU nurse assessment reviewed?: Yes Patient Condition:: Good Anesthesia Complications:: None Swallowing reflex intact?: Yes Cyanosis?: No Blood Pressure: 129/66 Pulse Rate: 70 Temperature: 97.5 F Mental Status: Alert & Oriented Pain level:: 0 Nausea and/or vomitting:: None Intake, IV Amount: 0
== END 2020-01-12 10:46 | disposition home or self-care (01) ==
LOC: OR 06:41
PROVIDERS: PCP Internal Medicine Adolescent Medicine; Visit Provider Surgery
DX: Z45.1 Encounter for adjustment and management of infusion pump (principal); Z97.8 Presence of other specified devices; J44.9 Chronic obstructive pulmonary disease, unspecified; J45.909 Unspecified asthma, uncomplicated; I25.10 Atherosclerotic heart disease of native coronary artery without angina pectoris; F32.9 Major depressive disorder, single episode, unspecified; I10 Essential (primary) hypertension; E78.5 Hyperlipidemia, unspecified; K21.9 Gastro-esophageal reflux disease without esophagitis; E03.9 Hypothyroidism, unspecified; Z85.118 Personal history of other malignant neoplasm of bronchus and lung; Z72.0 Tobacco use
CPT/HCPCS: 62365; 96374; J2405; J3370

== ENCOUNTER → 2020-01-20 11:24 | Outpatient (POV) | payer MEDICARE, OTHER, SELFPAY ==
[2020-01-20 12:01] VITALS: BP 108/49; PULSE 82; RESP 18; TEMP 37; O2SAT 98; BMI 15.0
--- NOTE | 2020-03-02 08:40 | HMH.PAINSOAP ---
[facility] Pain Management SOAP Note Subjective:: Patient is a pleasant 79-year-old white female who presents today for follow-up. She is being treated for low back pain with lumbar radiculopathy symptoms. Patient had an intrathecal pain pump that was recently explanted. The pain pump did not give the patient any relief and as a result the patient did request removal of the implant. Patient says that she tried other conservative therapies along with the implant and has not gotten any relief. Patient would like to resume oral medications for pain management. Overall, the patient says she is doing well since having the intrathecal pump removed. Review of Systems General: No recent weight changes, no fever, no sleep disturbances Respiratory: No cough, no shortness of air, no recurring pulmonary infections Cardiovascular/peripheral vascular: No chest pain, no palpitations, no edema, no shortness of breath Gastrointestinal: No new onset incontinence, normal bowel movements reported Genitourinary: No new onset incontinence Musculoskeletal: Low back pain Psychiatric: Normal mood/affect Neurological: [Denies weakness in extremities], [denies balance issues] Objective:: Physical exam General: Alert and oriented x3, no acute distress, pleasant and cooperative, [on room air] Lungs: Respirations even and unlabored, symmetrical chest expansion Eyes: PERRL Musculoskeletal: Flexion and extension of lumbar spine somewhat guarded secondary to pain, deep tendon reflexes normal, strength in upper and lower extremities [5/5], [abnormal gait noted] Neurological: Speech clear, manager philosophy equal, no gross sensory deficit Assessment:: Degenerative disc disease lumbar spine with lumbar radiculopathy symptoms Plan:: Overall the, the patient is doing well after explant. We will follow-up with the patient in 2 weeks to reassess her symptoms. The patient has been instructed to contact clinic if she has any concerns before her next appointment. Dr. Carballo has reviewed this note and agrees with this plan of care. This note was dictated using voice recognition software and make contain errors or omissions. [facility] History I have reviewed the patient's past medical history: Yes Medical History: Reports:: Cancer (lung ca), Chronic Obstructive Pulmonary Disease (COPD), Coronary Artery Disease, Cerebrovascular Accident, Depression, Gastroesophageal Reflux Disease(GERD), Hyperlipidemia, Hypertension, Palpitations Denies:: Diabetes Mellitus Type 1, Diabetes Mellitus Type 2, Internal Pacemaker, MRSA, Seizures *Have you ever received a pneumonia vaccine?: Yes *Have you received a flu vaccine this season?: Yes Other Medical History: Reports: Cataracts, Chemotherapy, Hypothyroidism, Radiation Therapy, Thyroid Disease. Denies: Blood Transfusion Reaction Other Surgeries: Yes: Appendectomy, Cardiac Catheterization, Cholecystectomy, Coronary Stent, Hysterectomy-Total, Thyroidectomy, Other (back surgery). No: Pacemaker Amputation: No Fractures: No - *Social History Smoking Status: Current every day smoker Tobacco Type: cigarettes # Packs/Day (cigarettes): 1 #Yrs smoked (if former smoker): 60 Alcohol Intake: never Substance Use Type: denies use *Occupational Status:: other Housing: house Household Members: family *Travel in the last 8 weeks: None - Psychiatric History Pschychiatric History:: Reports:: Depression Family Hx:: No significant family history
== END ==
PROVIDERS: PCP Internal Medicine Adolescent Medicine; Visit Provider Clinical Nurse Specialist Family Health
DX: M51.16 Intervertebral disc disorders with radiculopathy, lumbar region (principal)
CPT/HCPCS: 99212

== ENCOUNTER → 2020-02-01 10:45 | Outpatient (POV) | payer MEDICARE, OTHER, SELFPAY ==
[2020-02-01 12:26] VITALS: BP 112/62; PULSE 87; RESP 18; TEMP 36.6; O2SAT 99; BMI 14.6
--- NOTE | 2020-02-01 12:44 | P.CONS_ITS ---
[facility] Pain Management SOAP Note Subjective:: Patient is pleasant 79-year-old white female who presents today for follow-up after removal of her pain pump generator. She rates her pain a 6 out of 10 she states she is doing better she states that she has not having pain from a bump in her lower back. I discussed potentially a CT scan she is uninterested doing that at this time. She would like an x-ray. We will x-ray her lumbar spine to see if there is any current issues. Patient stitches have been removed site is clean dry and healing well. No sign symptoms of infection ROS General: no recent weight change, no fever, no sleep disturbances Respiratory: no cough, no shortness of air, no recurring pulmonary infections Cardiovascular/Peripheral Vascular: No chest pain, No palpitations, no edema, no shortness of breath. Gastrointestinal: no new onset incontinence, normal bowel movements reported Genitourinary: no new onset incontinence Musculoskeletal: Back pain, leg pain Psychiatric: normal mood/ affect Neurological: [denies new onset weakness in extremities], [denies new onset balance issues] Objective:: Physical Exam General: Alert and oriented x3, no acute distress, pleasant and cooperative, [on room air] Lungs: Resps E/U, Symmetrical chest expansion, Eyes: PERRL Musculoskeletal: Flexion and extension of lumbar spine somewhat guarded secondary to pain, deep tendon reflexes normal, strength in upper and lower extremities [5/5], [abnormal gait noted] Neurological: speech clear, investigator narcotics equal, no gross sensory deficits Assessment:: Degenerative disc disease lumbar spine with lumbar radiculopathy Plan:: We will see the patient back in 3 to 4 weeks reassess her symptoms at that time. We will send her for an x-ray of her lumbar spine for review. Patient's been instructed to call the office if she has any issues prior to her next appointment. Dr. Carballo has reviewed this note and agrees with this plan of care. This note was dictated using voice recognition software and may contain errors or omissions [facility] History I have reviewed the patient's past medical history: Yes Medical History: Reports:: Cancer (lung ca), Chronic Obstructive Pulmonary Disease (COPD), Coronary Artery Disease, Cerebrovascular Accident, Depression, Gastroesophageal Reflux Disease(GERD), Hyperlipidemia, Hypertension, Palpitations Denies:: Diabetes Mellitus Type 1, Diabetes Mellitus Type 2, Internal Pacemaker, MRSA, Seizures *Have you ever received a pneumonia vaccine?: Yes *Have you received a flu vaccine this season?: Yes Other Medical History: Reports: Cataracts, Chemotherapy, Hypothyroidism, Radiation Therapy, Thyroid Disease. Denies: Blood Transfusion Reaction Other Surgeries: Yes: Appendectomy, Cardiac Catheterization, Cholecystectomy, Coronary Stent, Hysterectomy-Total, Thyroidectomy, Other (back surgery). No: Pacemaker Amputation: No Fractures: No - *Social History Smoking Status: Current every day smoker Tobacco Type: cigarettes # Packs/Day (cigarettes): 1 #Yrs smoked (if former smoker): 60 Alcohol Intake: never Substance Use Type: denies use *Occupational Status:: other Housing: house Household Members: family *Travel in the last 8 weeks: None - Psychiatric History Pschychiatric History:: Reports:: Depression Family Hx:: No significant family history
== END ==
PROVIDERS: PCP Internal Medicine Adolescent Medicine; Visit Provider Clinical Nurse Specialist Family Health
DX: M51.16 Intervertebral disc disorders with radiculopathy, lumbar region (principal)
CPT/HCPCS: 99212

== ENCOUNTER → 2020-02-07 08:28 | Outpatient (CLI) | payer MEDICARE, OTHER, SELFPAY ==
--- NOTE | 2020-02-07 08:37 | XR_ITS ---
PROCEDURE: XR LUMBAR SPINE MIN 4V CLINICAL INDICATION: BACK PAIN Chronic back pain COMPARISON: LS5 LUMBAR SPINE 5 VIEWS from 07/30/[address] abdomen pelvis wo con from 07/08/2018 FINDINGS: Mild lumbar curvature convex right. There is degenerative disc disease at L4-5 and mild facet arthritic changes at L4-5 and L5-S1. There is a persistent catheter from a previously placed pain pump present with the epidural component tip overlying the T11-T12 region with remaining catheter noted with the tip in the left mid abdominal region. Pain pump is no longer present. Vascular calcifications are noted. No acute fracture or dislocation. Calcific density overlies the right aspect of the sacrum in the paracentral region and may be due to a bone island. IMPRESSION: Degenerative changes of the lumbar spine with other nonacute findings as described above. Dictated by: Jacky Keen MD 02/07/2020 16:51 Electronically signed by Jacky Keen MD in [place] 02/07/2020 16:51
== END ==
PROVIDERS: PCP Internal Medicine Adolescent Medicine; Visit Provider Anesthesiology
DX: M54.5 Low back pain (principal)
CPT/HCPCS: 72110

== ENCOUNTER → 2020-02-24 10:31 | Outpatient (POV) | payer MEDICARE, OTHER, SELFPAY ==
[2020-02-24 11:24] VITALS: BP 89/52; PULSE 74; RESP 18; O2SAT 98; BMI 15.2
--- NOTE | 2020-02-24 13:16 | HMH.PAINSOAP ---
[facility] Pain Management SOAP Note Subjective:: Patient is a pleasant 79-year-old white female who presents today for review of her recent x-rays. She is being treated for low back pain with lumbar radiculopathy symptoms. Patient recently had a spinal cord stimulator removal due to ineffectiveness of her pain. She does rate her pain as 6 out of 10 today. She does have a raised area noted to her right lower back area. She says that the area does cause her to have some discomfort. She did undergo an x-ray. The x-ray did report the patient to have a calcified density noted to her right aspect of her sacrum that is due to a bone. Patient and I did discuss her imaging. Patient has requested to follow-up with an orthopedic surgeon. She says that she wants to discuss removal of the area. Patient was informed that it is unlikely any type of procedure will be performed to the area, however, the patient is insistent that she follow-up with an orthopedic provider so that she can possibly remove the raised area. Review of Systems General: No recent weight changes, no fever, no sleep disturbances Respiratory: No cough, no shortness of air, no recurring pulmonary infections Cardiovascular/peripheral vascular: No chest pain, no palpitations, no edema, no shortness of breath Gastrointestinal: No new onset incontinence, normal bowel movements reported Genitourinary: No new onset incontinence Musculoskeletal: Low back pain Psychiatric: Normal mood/affect Neurological: [Denies weakness in extremities], [denies balance issues] Objective:: Physical exam General: Alert and oriented x3, no acute distress, pleasant and cooperative, [on room air] Lungs: Respirations even and unlabored, symmetrical chest expansion Eyes: PERRL Musculoskeletal: Flexion and extension of lumbar spine somewhat guarded secondary to pain, deep tendon reflexes normal, strength in upper and lower extremities [5/5], [abnormal gait noted] Neurological: Speech clear, saturation equipment operator equal, no gross sensory deficit Assessment:: Degenerative disc disease lumbar spine with lumbar radiculopathy symptoms Plan:: Patient is insistent on following up with a orthopedic provider regarding the raised area to her low back area. We will refer the patient and see her back in the clinic in 1 month to reassess her symptoms. The patient and I have discussed we are limited in the options we can do for her at this time, however, she would like to continue to follow-up with us she has been instructed to contact clinic if she has any concerns before next appointment. The patient and I specifically discussed risk factors for COVID19. These risks include, but are not limited to age greater than 60, heart or lung disease, diabetes, immunosuppression, and travel. We also discussed NSAIDs may worsen COVID19 infection or symptoms. Patient should not use NSAIDs to treat COVID19 signs or symptoms. Patient was also informed that any type of corticosteroid of any form (oral or injection) will decrease the patient's immune system response and may increase the likelihood of COVID19 infection [address] symptoms[address] Carballo has reviewed this note and agrees with this plan of care. This note was dictated using voice recognition software and make contain errors or omissions. [facility] History I have reviewed the patient's past medical history: Yes Medical History: Reports:: Cancer (lung ca), Chronic Obstructive Pulmonary Disease (COPD), Coronary Artery Disease, Cerebrovascular Accident, Depression, Gastroesophageal Reflux Disease(GERD), Hyperlipidemia, Hypertension, Palpitations Denies:: Diabetes Mellitus Type 1, Diabetes Mellitus Type 2, Internal Pacemaker, MRSA, Seizures *Have you ever received a pneumonia vaccine?: Yes *Have you received a flu vaccine this season?: Yes Other Medical History: Reports: Cataracts, Chemotherapy, Hypothyroidism, Radiation Therapy, Thyroid Disease. Denies: Blood Transfusion Reaction Other Surgeries: Yes: Ap
== END ==
PROVIDERS: PCP Internal Medicine Adolescent Medicine; Visit Provider Clinical Nurse Specialist Family Health
DX: M51.16 Intervertebral disc disorders with radiculopathy, lumbar region (principal)
CPT/HCPCS: 99212

== ENCOUNTER → 2020-03-06 13:37 | Outpatient (CLI) | payer MEDICARE, OTHER, SELFPAY ==
--- NOTE | 2020-03-06 13:52 | MR_ITS ---
PROCEDURE: MR LUMBAR SPINE WO CON CLINICAL INDICATION: BACK PAIN Lbp worse on rt side. Rt leg numbness and pain. X2yrs. Prior x-ray 02-06-20 prior mr 09-24-16 COMPARISON: [facility] [place] MRI-L-SPINE W/WO from 09/24/2016 SPTHORWO MR thoracic spine wo con from 03/05/2018 TECHNIQUE: Standard multiplanar multiecho sequences are performed without contrast. 3-D MIP and myelographic images are also rendered and reviewed FINDINGS: There is normal alignment. The spinal cord ends at the T12-L1 level. There is mild lumbar scoliosis convex right. L1-L2: Minimal bulging disc with mild degenerative disc disease. L2-L3: Mild concentric bulging disc with mild bilateral lateral recess and foraminal narrowing and mild facet and ligamentum hypertrophy. Not significantly changed L3-L4: Concentric bulging disc with facet ligamentum hypertrophy. There is mild to moderate bilateral foraminal narrowing and lateral recess narrowing slightly greater on the left with facet and ligamentum hypertrophy with borderline narrowing of the canal. The bulging disc may be slightly larger L4-5: Degenerative disc disease with bulging disc and facet and ligamentum hypertrophy with canal stenosis, bilateral lateral recess narrowing, and moderate to severe right foraminal narrowing.. There does appear to be a small laminotomy defect on the right at this level. Previously there was a large disc herniation in the right paracentral region which is no longer apparent. There are type 1 endplate changes. There is some minimal broad-based central disc protrusion slightly eccentric toward the right which could be due to residual or recurrence disc protrusion versus epidural fibrosis. Consider follow-up MRI without and with contrast for epidural fibrosis evaluation. L5-S1: Mild concentric bulging disc with mild facet ligamentum hypertrophy. Incidental note made of right renal cyst along the lower pole at 18 mm. IMPRESSION: 1. Multilevel lumbar spondylosis with bulging disc along with facet ligamentum hypertrophy with lateral recess and foraminal narrowing. Please see above for detailed description at each level. 2. L2-L3: Mild concentric bulging disc with mild bilateral lateral recess and foraminal narrowing and mild facet and ligamentum hypertrophy. Not significantly changed 3. L3-L4: Concentric bulging disc with facet ligamentum hypertrophy. There is mild to moderate bilateral foraminal narrowing and lateral recess narrowing slightly greater on the left with facet and ligamentum hypertrophy with borderline narrowing of the canal. The bulging disc may be slightly larger 4. L4-5: Degenerative disc disease with bulging disc and facet and ligamentum hypertrophy with canal stenosis, bilateral lateral recess narrowing, and moderate to severe right foraminal narrowing.. There does appear to be a small laminotomy defect on the right at this level. Previously there was a large disc herniation in the right paracentral region which is no longer apparent. There are type 1 endplate changes. There is some minimal broad-based central disc protrusion slightly eccentric toward the right which could be due to residual or recurrent disc protrusion versus epidural fibrosis. Consider follow-up MRI without and with contrast for epidural fibrosis evaluation. Dictated by: Jacky Keen MD 03/07/2020 13:43 Electronically signed by Jacky Keen MD in [place] 03/07/2020 13:43
== END ==
PROVIDERS: PCP Internal Medicine Adolescent Medicine; Visit Provider Orthopaedic Surgery
DX: M54.5 Low back pain (principal)
CPT/HCPCS: 72148; 76376

== ENCOUNTER 2020-03-19 18:05 | Emergency (ER) | payer MEDICARE, OTHER, SELFPAY ==
[2020-03-19 18:06] VITALS: BP 113/53; PULSE 70; RESP 18; TEMP 36.9; O2SAT 92; BMI 15.0
--- NOTE | 2020-03-19 18:10 | XR_ITS ---
PROCEDURE: XR CHEST PORTABLE CLINICAL HISTORY: sob A smoker. Right-sided lung cancers has had chemotherapy. COMPARISON: CXR2V XR chest 2V from 07/01/2018 CXR2V XR chest 2V from 07/19/2018 [id number] XR ribs LT min 3V w CXR1V from 12/22/2018 CT CHEST W CON from 09/20/2019 FINDINGS: The cardiomediastinal silhouette and pulmonary vascularity are within normal limits. The lungs are hyperinflated, consistent with COPD. No demonstrated consolidation, pulmonary vascular congestion or pleural effusion in the visualized lungs. Chronic small nodular interstitial opacities/granulomatous scarring is seen bilaterally in mid/lower lung zones. Small calcified mediastinal/hilar lymph nodes are seen from or granulomatous process. No acute bony abnormalities. IMPRESSION: No acute findings. Stable appearing chest. COPD changes. Dictated by: Thompson Barrientos 03/20/2020 09:10 Electronically signed by Thompson Barrientos in [place] 03/20/2020 09:10
--- NOTE | 2020-03-19 18:12 | HMH.EDSOB ---
ED Disposition Clinical Impression: Prerenal azotemia Disposition: Home, Self-Care Condition on Discharge: Fair Instructions: DI for Emphysema Referrals: Sagar Liu MD [Primary Care Provider] - - Critical Care Critical Care Time: No Attestation: On 03/19/20, the high probability of a clinically significant, sudden or life threatening deterioration of the following system(s) required my full and direct attention, intervention and personal management. The time I documented below is in addition to time spent performing reported procedures but includes the following listed in this critical care notation. Medical Decision Making - Medical Records Medical records reviewed: Yes: I reviewed the patient's medical records. - Andrea Inquiry Pt receiving controlled substance: No Vital Signs: 03/19/20 18:06 03/19/20 18:20 03/19/20 19:02 Temperature 98.4 F Temperature Source Oral Pulse Rate [Left Radial] 70 68 65 Respiratory Rate 18 18 Blood Pressure [Right Arm] 113/53 L 113/53 L 86/46 L Blood Pressure Mean [Right Arm] 73 73 59 Blood Pressure Source [Right Arm] Automatic Cuff Blood Pressure Position [Right Arm] Sitting Supine 02 Sat by Pulse Oximetry 92 L 93 L Oxygen Delivery Method Room Air Room Air - Lab Data Lab results reviewed: Yes: I reviewed the patient's lab results. Lab Results 03/19/20 18:00: WBC 4.5 L, RBC 4.45, Hgb 14.0, Hct 40.0, MCV 89.9, MCH 31.5 H, MCHC 35.1, RDW 14.6, Plt Count 115 L, MPV 8.6, Neut % (Auto) 52.4, Lymph % (Auto) 31.8, Griggs % (Auto) 6.8, Eos % (Auto) 7.6, Baso % (Auto) 1.3, Neut # (Auto) 2.4, Lymph # (Auto) 1.4, Griggs # (Auto) 0.3, Eos # (Auto) 0.3, Baso # (Auto) 0.1 03/19/20 18:00: Troponin I < 0.01, NT-Pro-B Natriuret Pep 328 03/19/20 18:00: ESR 19 03/19/20 18:00: Sodium 141, Potassium 4.3, Chloride 103, Carbon Dioxide 30, Anion Gap 12.3, BUN 32 H, Creatinine 1.50 H, Estimated Creat Clear 21, Estimated GFR 33 L, Est GFR ( Amer) 41 L, Glucose 97, Calcium 8.9, Total Bilirubin 0.4, AST 27, ALT 16, Alkaline Phosphatase 139 H, Total Protein 7.0, Albumin 3.8, Globulin 3.2, Albumin/Globulin Ratio 1.2 03/19/20 18:22: Group A Strep Rapid Negative 03/19/20 18:36: Specimen Source R/r, O2 % R/a, ABG pH 7.39, ABG pCO2 40.2, ABG pO2 60.3 L, ABG HCO3 23.8, ABG Total CO2 25.1, ABG O2 Saturation 91, ABG Base Excess -1.1, Jacky Test Y Result diagrams: 03/19/20 18:00 03/19/20 18:00 Orders (Tests/Meds): ED MEDICATIONS Generic Name Dose Route Start Last Admin Trade Name Freq PRN Reason Stop Dose Admin Sodium Chloride 500 mls @ 500 mls/hr 03/19/20 19:00 Sod Chlor 0.9% 500ml Bag IV 04/18/20 18:59 .Q1H ROSELINE Discontinued Medications Generic Name Dose Route Start Last Admin Trade Name Freq PRN Reason Stop Dose Admin Albuterol Sulfate 2 puffs 03/19/20 18:25 03/19/20 18:38 Proventil-Hfa 90mcg/Puff Inhaler 03/19/20 18:26 2 puffs ONCE ONE Administration Albuterol/Ipratropium 3 ml 03/19/20 18:18 Duoneb 3ml Neb 03/19/20 18:19 ONCE ONE Ketorolac Tromethamine 30 mg 03/19/20 18:11 03/19/20 18:22 Toradol 30mg/Ml Vial IV 03/19/20 18:12 15 mg ONCE ONE Administration Miscellaneous 1 unit 03/19/20 18:25 03/19/20 18:38 Aerochamber/Optihaler 03/19/20 18:26 1 unit ONCE ONE Administration Ondansetron HCl 8 mg 03/19/20 18:11 03/19/20 18:22 Zofran 4mg/2ml Vial IV 03/19/20 18:12 8 mg ONCE ONE Administration ORDERS Category Date Time Status XR chest portable Stat Exams 03/19/20 18:10 Taken SARS-CoV-2, LESLIE Stat Lab 03/19/20 18:30 Received Troponin I Q3H Lab 03/19/20 21:15 Ordered Troponin I Q3H Lab 03/20/20 00:15 Ordered Urinalysis and Microscopic Stat Lab 03/19/20 18:10 Ordered Strep Screen Confirmation Stat Micro 03/19/20 18:22 Received Arterial Blood Gas Stat RT 03/19/20 18:10 Ordered - Radiology Data #1 Image(s): Chest Image Reviewed: Yes I reviewed the patient's radiology image
[2020-03-19 18:20] VITALS: BP 113/53; PULSE 68; RESP 18; O2SAT 93
[2020-03-19 18:22] LABS: Basophils # 0.1 K/mm3 (0-0.2); Basophils % 1.3 % (0.1-2.0); Eosinophils # 0.3 K/mm3 (0.0-0.4); Eosinophils % 7.6 % (0.1-12.0); Lymphocytes # 1.4 K/mm3 (0.7-4.5); Lymphocytes % 31.8 % (10-50); Mean Corpuscular HGB Conc 35.1 g/dL (31.8-35.4); Mean Corpuscular Hemoglobin 31.5 pg (27.0-31.2); Mean Corpuscular Volume 89.9 fl (81-99); Mean Platelet Volume 8.6 fl (7.4-10.4); Monocytes # 0.3 K/mm3 (0.1-1.0); Monocytes % 6.8 % (1.7-9.3); Neutrophils # 2.4 K/mm3 (1.8-7.8); Neutrophils % 52.4 % (37.0-80.0); Platelet Count 115 K/mm3 (142-424); Red Blood Count 4.45 M/mm3 (4.20-5.40); Red Cell Distribution Width 14.6 % (11.5-17.5); White Blood Count 4.5 K/mm3 (4.8-10.8)
[2020-03-19 18:29] LABS: Alanine Aminotransferase 16 U/L (12-78); Albumin Level 3.8 g/dl (3.5-5.0); Albumin/Globulin Ratio 1.2 (1.1-1.8); Alkaline Phosphatase 139 U/L (38-126); Anion Gap 12.3 mEq/L (5-15); Aspartate Amino Transferase 27 U/L (14-36); Bilirubin,Total 0.4 mg/dl (0.2-1.3); Blood Urea Nitrogen 32 mg/dl (7-17); Calcium 8.9 mg/dl (8.4-10.2); Carbon Dioxide 30 mmol/L (22.0-30.0); Chloride 103 mmol/L (98-107); Creatinine Clearance Estimated 21 mL/min (50-200); Estimated Glomerular Filt Rate 33 ml/min (>60); GFR (African American) 41 ML/MIN (>60); Globulin 3.2 g/dL (1.3-3.2); Glucose 97 mg/dl (74-100); Potassium 4.3 mmoL/L (3.5-5.1); Sodium 141 mmol/L (136-145)
[2020-03-19 18:37] LABS: ABG Base Excess -1.1 mmol/L (-2.4-2.3); ABG HCO3 23.8 mmhg (22.0-26.0); ABG Oxygen Saturation 91 % (90-100); ABG PCO2 40.2 mmhg (35.0-45.0); ABG PH 7.39 mmol/L (7.35-7.45); ABG PO2 60.3 mmhg (80-100); ABG TCO2 25.1 mmhg (23-27); Allen's Test Y; Oxygen R/A %; Source R/R
[2020-03-19 18:39] LABS: Strep Scrn Group A (Rapid) Negative (Negative)
[2020-03-19 18:41] LABS: NT Pro Brain Natriuretic Pep. 328 pg/mL (0-450)
[2020-03-19 18:44] LABS: Troponin I < 0.01 ng/ml (0.00-0.034)
[2020-03-19 18:46] LABS: Erythrocyte Sedimentation Rate 19 mm/hr (0-30)
[2020-03-19 19:02] VITALS: BP 86/46; PULSE 65
[2020-03-19 19:21] LABS: Microscopic, Urine URINE MICROSCOPIC (MICROSCOPIC)
[2020-03-19 19:27] LABS: Appearance,Urine CLEAR (Clear); Bilirubin,Urine Negative (Negative); Blood, Urine Negative (Negative); Color,Urine YELLOW (Yellow); Glucose,Urine (UA) Negative (Negative); Ketones,Urine Negative (Negative); Leukocyte Esterase,Urine TRACE (Negative); Nitrate,Urine Negative (Negative); Protein,Urine Negative (Negative); Specific Gravity, Urine 1.025 (1.005-1.030); Urobilinogen,Urine 0.2 EU/dl (0.2)
[2020-03-19 19:30] VITALS: BP 101/45; PULSE 68; RESP 18; O2SAT 94
[2020-03-19 19:37] LABS: WBC,Urine 20-50 #/hpf (0-3); Yeast,Urine 1+ /lpf
[2020-03-19 20:00] VITALS: BP 91/45; PULSE 67; RESP 18; O2SAT 94
[2020-03-19 20:25] VITALS: BP 91/45; PULSE 88; RESP 14; TEMP 36.9; O2SAT 94
[2020-03-21 13:09] LABS: Covid-19 Nasal PCR Sendout Lex Not Detected
== END 2020-03-19 20:29 | disposition home or self-care (01) ==
PROVIDERS: Emergency Provider Emergency Medicine; PCP Internal Medicine Adolescent Medicine
DX: R39.2 Extrarenal uremia (principal); I25.10 Atherosclerotic heart disease of native coronary artery without angina pectoris; Z86.73 Personal history of transient ischemic attack (TIA), and cerebral infarction without residual deficits; K21.9 Gastro-esophageal reflux disease without esophagitis; I10 Essential (primary) hypertension; E03.9 Hypothyroidism, unspecified; E78.5 Hyperlipidemia, unspecified; F33.1 Major depressive disorder, recurrent, moderate; F17.210 Nicotine dependence, cigarettes, uncomplicated; J44.9 Chronic obstructive pulmonary disease, unspecified; Z79.899 Other long term (current) drug therapy
CPT/HCPCS: 71045; 80053; 81001; 82803; 83880; 84484; 85025; 85651; 87086; 87430; 96365; 96375; 99284; J2405; U0004

== ENCOUNTER → 2020-03-28 11:20 | Outpatient (CLI) | payer MEDICARE, OTHER, SELFPAY ==
--- NOTE | 2020-03-28 | CA_ITS ---
APPROVED REPORT Exam: Pharmacologic Technologist: Iram Velazquez Ht: 5 ft 7 in Wt: 101 lbs BSA: 1.51 m2 HR: 69 bpm BP: 161/75 mmHg Indications: Chest pain Medical History Medications: Levothyroxine,,,,, Furosemide (LASIX),,,,, Gabapentin,,,,, Albuterol,,,,, Famotidine,,,,, Sertraline,,,,, BenaDRYL,,,,, Stress Test Details Test: LEXISCAN HR Resting HR: 71 bpm Max Heart Rate (APMHR): 141 bpm Max HR Achieved: 106 bpm Target HR (85% APMHR): 119 bpm % of APMHR: 75 Recovery HR: 80 bpm BP Resting BP: 161.0/75.0 mmHg Max BP: 161.0/75.0 mmHg Recovery BP: 133.0/63.0 mmHg ECG Clinical Exercise duration: 04:03 min Highest Stage Achieved: Exercise capacity: 1.0 METs Stress ECG Conclusion Resting ECG: Normal sinus rhythm, PVC Symptoms: Shortness of air, nausea, malaise. No chest pain. Arrhythmias/Ectopy: None ST-T Changes: No significant changes Conclusion: Unremarkable Lexiscan stress. Myoview images reported separately. Test Summary REST . . . . . . . Resting REST 06:28 . . 71 . 161/ 75 . . Stage 1 . . . . . . . Myoview Injected Stage 1 01:00 . . 80 . . . . Stage 2 01:00 . . 86 . 140/ 62 . . Stage 3 01:00 . . 88 . 131/ 62 . . Stage 4 01:00 . . 85 . 131/ 57 . . Stage 4 01:03 . . 85 . 131/ 57 . Stop exercise at 04:03 RECOVERY 01:00 . . 87 . . . . RECOVERY 02:00 . . 90 . 127/ 60 . . RECOVERY 03:00 . . 88 . 127/ 60 . . RECOVERY 04:00 . . 86 . 127/ 65 . . RECOVERY 05:00 . . 86 . 133/ 33 . . RECOVERY 05:12 . . 86 . 133/ 33 . . Electronically signed by : Eber Sue, 03/28/2020 18:31:20
--- NOTE | 2020-03-28 11:22 | CA_ITS ---
APPROVED REPORT EXAM: Comprehensive 2D, Doppler, and color-flow Echocardiogram Contract Mail Carrier: Jo Ann Whiting RDCS Ht: 5 ft 7 in Wt: 102lbs BSA: 1.52 BP: 134/54 mmHg Indications: CP,CAD,HTN,HLP,COPD,SMOKER,BEAULIEU 2D Dimensions LVOT 2.03 cm (M/F) 1.5-2.5 M-Mode Dimensions RVDd 2.12 cm (0.9-2.6) LVDd 3.88 cm (3.5-5.7) LVDs 2.87 cm (3.5-5.7) IVSd 0.79 cm (0.6-1.1) PWd 0.71 cm (0.6-1.1) EF (Teich) 51.80% FS 26.00% EDV (Teich) 65.10 mL ESV (Teich) 31.40 mL LV Diastology E/A Ratio 0.82 Aortic Valve LVOT Max 78.00 (70-110 cm/s) LVOT VTI 17.67 cm Mitral Valve MV A Velocity 76.00 (40-130 cm/s) Left Ventricle Left atrium is mildly enlarged, left ventricle is normal size, mild concentric left ventricular hypertrophy, visually estimated ejection fraction 55% with no regional wall motion abnormality, grade 1 diastolic dysfunction seen without tissue Doppler evidence of raise left atrial pressure. Right Ventricle Right atrium and right ventricular normal size and contractility. Aortic Valve Aortic valve is minimally thickened and fibrosed, there is no aortic stenosis or aortic insufficiency. Mitral Valve Mitral valve is grossly normal, there is mild mitral regurgitation. Tricuspid Valve Tricuspid valve is grossly normal, there is mild tricuspid regurgitation. Pulmonic Valve Pulmonic valve is poorly visualized. Great Vessels Aortic root is normal size. Pericardium No significant pericardial effusion noted. Conclusion 1. Mildly enlarged left atrium, normal left ventricular size, mild concentric left ventricular hypertrophy, visually estimated ejection fraction 55% with no regional wall motion abnormality, grade 1 diastolic dysfunction seen without tissue Doppler evidence of raise left atrial pressure. 2. Thickened and calcified aortic valve without Doppler evidence of aortic stenosis or aortic insufficiency. 3. Mild mitral and tricuspid regurgitation. 4. No significant pericardial effusion noted. Electronically signed by : Eber Sue, 03/28/2020 17:00:52
--- NOTE | 2020-03-28 11:25 | NM_ITS ---
APPROVED REPORT Exam: Nuclear Stress Test Indication: CAD, HTN, High cholesterol, Tobacco use, Family history, Syncope, Fatigue Patient Location: Outpatient Stress Tech: Iram Velazquez NM Tech:Donita Diaz, ARRT, RT (R)(N) Ht: 5 ft 7 in Wt: 101 lbs Bra Size: 34B HR: 69 bpm BP: 161/75 mmHg BSA: 1.51 m2 BMI: 15.8 History: CAD, HTN, High cholesterol, Tobacco use, Family history, Syncope, Fatigue Procedure: Patient received a 0.4 mg of intravenous Lexiscan, resting heart rate 69 bpm, resting blood pressure 161/75 mmHg, with Lexiscan maximum heart rate achived was 86 bpm which is Less than 85 % of the maximum predicted heart rate and blood pressure was 140/67 mmHg. With Lexiscan, patient denied any complaint of chest pain. Electrocardiogram Resting electrocardiogram showed sinus rhythm, with Lexiscan less than 1.[address] segment depression noted from the baseline EKG. The EKG portion of the Lexiscan Myoview is nondiagnostic. Cardiac Stress and Resting SPECT Images: Cardiac Stress and Resting SPECT images were obtained using technetium 99m Myoview 32.5 mCi stress and 10.36 mCi at rest. Gated SPECT with analysis of segmental wall motion and calculation of the ejection fraction also done. Cardiac stress and resting SPECT images show mild fixed defect anteroseptally with normal rony gated SPECT is likely secondary to soft tissue attenuation, no reversible ischemia seen. Computer derived ejection fraction is over 65% with no regional wall motion abnormality, right ventricle is normal size and contractility. Conclusion: 1. The EKG portion of the Lexiscan Myoview is nondiagnostic. 2. No obvious scintigraphic evidence of reversible ischemia seen, computer derived ejection fraction is over 65% with no regional wall motion abnormality, right ventricle is normal size and contractility. 3. Likely normal Lexiscan Myoview study. Electronically signed by : Eber Sue, 03/28/2020 18:33:18
--- NOTE | 2020-03-28 12:41 | HMH.ITSHM ---
Current Home Medications as stated by this patient Mica Steve or nutrition representative. []SETRALINE GABAPENTIN FAMOTIDINE LEVOTHYROXINE LASIX ASA ALBUTEROL
== END ==
PROVIDERS: PCP Internal Medicine Adolescent Medicine; Visit Provider Internal Medicine Cardiovascular Disease
DX: E78.5 Hyperlipidemia, unspecified (principal); F17.200 Nicotine dependence, unspecified, uncomplicated; I10 Essential (primary) hypertension; I25.10 Atherosclerotic heart disease of native coronary artery without angina pectoris; J44.9 Chronic obstructive pulmonary disease, unspecified; R06.00 Dyspnea, unspecified; Z01.810 Encounter for preprocedural cardiovascular examination
CPT/HCPCS: 78452; 93017; 93306; A9502; J2785

== ENCOUNTER → 2020-05-24 07:37 | Outpatient (CLI) | payer MEDICARE, OTHER, SELFPAY ==
[2020-05-24 08:29] LABS: Basophils # 0.1 K/mm3 (0-0.2); Basophils % 1.1 % (0.1-2.0); Eosinophils # 0.3 K/mm3 (0.0-0.4); Eosinophils % 5.4 % (0.1-12.0); Hematocrit 43.3 % (37.0-47.0); Hemoglobin 13.7 g/dL (12.2-16.2); Lymphocytes # 0.8 K/mm3 (0.7-4.5); Lymphocytes % 17.2 % (10-50); Mean Corpuscular HGB Conc 31.5 g/dL (31.8-35.4); Mean Corpuscular Hemoglobin 29.5 pg (27.0-31.2); Mean Corpuscular Volume 93.7 fl (81-99); Monocytes # 0.3 K/mm3 (0.1-1.0); Monocytes % 5.5 % (1.7-9.3); Neutrophils # 3.4 K/mm3 (1.8-7.8); Neutrophils % 70.8 % (37.0-80.0); Platelet Count 152 K/mm3 (142-424); Red Blood Count 4.63 M/mm3 (4.20-5.40); Red Cell Distribution Width 14.5 % (11.5-17.5); White Blood Count 4.8 K/mm3 (4.8-10.8)
[2020-05-24 08:39] LABS: Chloride 108 mmol/L (98-107); Potassium 4.8 mmoL/L (3.5-5.1); Sodium 143 mmol/L (136-145)
[2020-05-24 08:42] LABS: Alanine Aminotransferase 13 U/L (12-78); Albumin Level 3.8 g/dl (3.5-5.0); Albumin/Globulin Ratio 1.3 (1.1-1.8); Alkaline Phosphatase 133 U/L (38-126); Anion Gap 9.8 mEq/L (5-15); Aspartate Amino Transferase 25 U/L (14-36); Bilirubin,Total 0.4 mg/dl (0.2-1.3); Blood Urea Nitrogen 26 mg/dl (7-17); Carbon Dioxide 30 mmol/L (22.0-30.0); Estimated Glomerular Filt Rate 39 ml/min (>60); GFR (African American) 48 ML/MIN (>60); Globulin 2.9 g/dL (1.3-3.2); Total Protein,Serum 6.7 g/dl (6.3-8.2)
[2020-05-24 08:43] LABS: Calcium 9.5 mg/dl (8.4-10.2); Glucose 120 mg/dl (74-100)
[2020-05-24 09:12] LABS: Thyroid Stimulating Hormone 3.66 uIU/mL (0.465-4.68)
== END ==
PROVIDERS: Visit Provider Internal Medicine Adolescent Medicine
DX: E03.9 Hypothyroidism, unspecified (principal)
CPT/HCPCS: 36415; 80053; 84443; 85025

== ENCOUNTER → 2020-07-03 13:00 | Outpatient (CLI) | payer MEDICARE, OTHER, SELFPAY ==
[2020-07-05 18:54] LABS: Hemoglobin A1C 5.1 % (4.0-6.0)
== END ==
PROVIDERS: Visit Provider Physician Assistant
DX: R73.9 Hyperglycemia, unspecified (principal)
CPT/HCPCS: 83036

== ENCOUNTER → 2020-07-07 07:17 | Outpatient (CLI) | payer MEDICARE, OTHER, SELFPAY ==
[2020-07-07 10:51] LABS: Blood Urea Nitrogen 27 mg/dl (7-17); Calcium 9.9 mg/dl (8.4-10.2); Carbon Dioxide 31 mmol/L (22.0-30.0); Chloride 103 mmol/L (98-107); Estimated Glomerular Filt Rate 43 ml/min (>60); GFR (African American) 52 ML/MIN (>60); Glucose 100 mg/dl (74-100); Sodium 143 mmol/L (136-145)
== END ==
PROVIDERS: Visit Provider Physician Assistant
DX: Z01.818 Encounter for other preprocedural examination (principal)
CPT/HCPCS: 36415; 80048

== ENCOUNTER → 2020-07-10 10:44 | Outpatient (CLI) | payer MEDICARE, OTHER, SELFPAY ==
--- NOTE | 2020-07-10 10:44 | MR_ITS ---
PROCEDURE: MR LUMBAR SPINE WO/W CON CLINICAL INDICATION: epidural fibrosis HX BACK SURGERY 2014. F/U FROM PRIOR MRI ON 03-06-20. LBP. RT LEG PAIN, NUMBNESS, AND TINGLING WITH RT HIP PAIN XYRS. [place] [facility] [place]/05/2016 MR MR LUMBAR SPINE WO CON from 03/06/2020 TECHNIQUE: Standard multiplanar multiecho sequences are performed without contrast. 3-D MIP and myelographic images are also rendered and [id number] PROHANCE GIVEN. LOT:[id number] EXP: BUN:27 CRE:1.2 GFR:43 FINDINGS: There is normal alignment. The spinal cord ends at the L1 level. L1-L2: Minimal bulging disc with mild degenerative disc disease. L2-L3: Mild concentric bulging disc with mild bilateral lateral recess and foraminal narrowing and mild facet and ligamentum hypertrophy. Not significantly changed L4-5: There is degenerative disc disease at L4-L5 with facet and ligamentum hypertrophy with canal stenosis, bilateral lateral recess narrowing, and moderate to severe right-sided foraminal narrowing. This is similar compared to the previous exam. Postsurgical changes with prior right-sided laminotomy. Broad-based central disc protrusion once again noted. There is some enhancement along the right lateral recess at this region consistent with some epidural fibrosis. There is some enhancement around the right S1 nerve root at this area. This had a somewhat similar appearance on the older exam of 08/05/2016. At L5-S1 there is bulging disc with minimal central disc protrusion along with facet and ligamentum hypertrophy. Some of this area however does not enhance consistent with a small disc protrusion. IMPRESSION: Multilevel lumbar spondylosis as detailed above with degenerative disc disease at L5-S1 with postsurgical change at that level with bulging disc and a small broad-based central disc protrusion along with some epidural fibrosis in the right lateral recess and around the right S1 nerve root. There is canal stenosis and bilateral lateral recess narrowing and bilateral foraminal narrowing at that level as well. Dictated by: Jacky Keen MD 07/12/2020 09:51 Jacky Keen MD in [place] 07/12/2020 09:51
--- NOTE | 2020-07-10 12:09 | XR_ITS ---
PROCEDURE: XR HIP RT 2-3V W/PELVIS CLINICAL INDICATION: right hip pain COMPARISON: CR HIP2R HIP-2 VIEWS-RT from 03/15/2015 CR,DX BONE3 BONE DENSITOMETRY(HIP:LT SPINE from 10/11/[id number] abdomen pelvis wo con from 07/08/2018 FINDINGS: No obvious fracture or dislocation. There is osteosclerosis of the femoral heads on both sides suspicious for avascular necrosis. MRI may confirm. Degenerative disc disease is present at L4-5. Minimal osteoarthritic changes are present involving the hips. IMPRESSION: 1. No acute fracture. 2. 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 MRI may confirm Dictated by: Jacky Keen MD 07/10/2020 12:34 Jacky Keen MD in [place] 07/10/2020 12:34
== END ==
PROVIDERS: PCP Physician Assistant; Visit Provider Physician Assistant
DX: G96.198 Other disorders of meninges, not elsewhere classified (principal); M25.551 Pain in right hip; M54.5 Low back pain; R93.89 Abnormal findings on diagnostic imaging of other specified body structures
CPT/HCPCS: 72158; 73502; 76376; A9576

== ENCOUNTER 2020-07-17 15:00 | Outpatient (RCR) | payer MEDICARE, OTHER, SELFPAY ==
--- NOTE | 2020-07-10 16:09 | HMH.PTOPEV ---
PT Outpatient Evaluation Rehab PT Outpatient Evaluation Start: 07/10/20 13:56 Freq: Status: Active Protocol: Document 07/10/20 15:52 ANIBAL (Rec: 07/10/20 16:09 PHORNE [id number]) Electronically Signed By Avtar Penaloza, PT 07/10/20 15:52 Outpatient Therapy Subjective History Subjective History Pt is 80 yowf who presents with significant hx of chronic low back pain x ~ 7 yrs. She reports having 2 lumbar surgeries, but does not know what procedures were performed. She had and implanted pain pump, but was unhappy with the results and has since had it removed. She also c/o frequent falls, but refuses to use and assistive device, Those are for old people. She fell ~ 4 days ago landing on her R side and has had increased R post hip pain and increased numbness/ tingling in the R LE since that time. SHe has refused to seek further care at this time . She had MRI performed today, but results not yet available . She had prior X-rays with severe DDD at L4-5 with possible AVN of B hip jts and obvious scoliosis. Chief Complaint Pain,Stiff,Weakness,Decreased Coordination Symptom Type Ache,Throb,Sharp,Dull,Stabbing ,Burning,Numbness,Tingling, Shooting Symptoms Relieved By Nothing Symptoms Aggravated By Standing,Bending/Stooping, Physical Activity,Twisting, Walking,Lifting Prior Functional Limitations Lifting,Housework,Sleeping, Standing,Recreation Activity, Walking,Stairs,Balance,Bending /Stooping Current Functional Limitations Lifting,Housework,Sleeping, Standing,Recreation Activity, Walking,Stairs,Balance,Bending /Stooping Symptom Description Constant but Variable Level of pain today (0-10) 8 Pain scale - at its worst (0-10) 10 Lumbopelvic Eval Posture Thoracic Spine Posture Standing Position Fix
== END 2020-07-17 15:05 | disposition home or self-care (01) ==
LOC: PT 15:00
PROVIDERS: Visit Provider Physician Assistant
DX: M54.31 Sciatica, right side (principal)
CPT/HCPCS: 97010; 97014; 97110; 97163; G0283

== ENCOUNTER → 2020-07-26 13:45 | Outpatient (CLI) | payer MEDICARE, OTHER, SELFPAY ==
--- NOTE | 2020-07-26 13:45 | MR_ITS ---
PROCEDURE: MR HIP RT WO CON CLINICAL INDICATION: r/o avascular necrosis Pt c/o bilateral hip pain with hx of multiple falls. Pt states rt hip hurts worse than left.Order states to r/o avascular necrosis. COMPARISON: CR XR HIP RT 2-3V W/PELVIS from 07/10/2020 MR MR HIP LT WO CON from 07/26/2020 TECHNIQUE: Routine multiplanar multi echo sequences are performed without gadolinium enhancement. FINDINGS: There are geographic areas altered signal intensity involving the subcortical region of both femoral heads which are isodense slightly hyperintense on T1 and hypointense on STIR images with a well-circumscribed transitional zone that is hypointense on T1 and hyperintense on STIR images consistent with bilateral avascular necrosis.. This is Ficat stage II. There may be some very minimal/early cortical collapse of the left femoral head. IMPRESSION: Bilateral femoral head avascular necrosis Dictated by: Jacky Keen MD 07/28/2020 11:35 Jacky Keen MD in [place] 07/28/2020 11:35
--- NOTE | 2020-07-26 13:45 | MR_ITS ---
PROCEDURE: MR HIP LT WO CON CLINICAL INDICATION: r/o avascular necrosis Pt c/o bilateral hip pain with hx of multiple falls. Pt states rt hip hurts worse than left.Order states to r/o avascular necrosis. COMPARISON: CR XR HIP RT 2-3V W/PELVIS from 07/10/2020 MR MR HIP LT WO CON from 07/26/2020 TECHNIQUE: Routine multiplanar multi echo sequences are performed without gadolinium enhancement. FINDINGS: There are geographic areas altered signal intensity involving the subcortical region of both femoral heads which are isodense slightly hyperintense on T1 and hypointense on STIR images with a well-circumscribed transitional zone that is hypointense on T1 and hyperintense on STIR images consistent with bilateral avascular necrosis.. This is Ficat stage II. There may be some very minimal/early cortical collapse of the left femoral head. IMPRESSION: Bilateral femoral head avascular necrosis Dictated by: Jacky Keen MD 07/27/2020 00:46 Jacky Keen MD in [place] 07/28/2020 11:38
== END ==
PROVIDERS: PCP Physician Assistant; Visit Provider Physician Assistant
DX: M87.051 Idiopathic aseptic necrosis of right femur (principal); M87.052 Idiopathic aseptic necrosis of left femur
CPT/HCPCS: 73721

== ENCOUNTER → 2020-08-11 08:45 | Outpatient (CLI) | payer MEDICARE, OTHER, SELFPAY ==
--- NOTE | 2020-08-11 08:50 | XR_ITS ---
PROCEDURE: XR HIP LT 2-3V W/PELVIS CLINICAL INDICATION: Left hip pain COMPARISON: CR XR HIP RT 2-3V W/PELVIS from 07/10/2020 FINDINGS: No fracture or dislocation is evident. No significant degenerative change. Somewhat patchy ill-defined sclerosis of both femoral heads is again noted similar to the previous study and suggestive of bilateral avascular necrosis. There is no significant asymmetrical joint space narrowing of either hip. The SI joints and symphysis pubis appear normal. There is narrowing of the L4-5 disc space as noted previously. IMPRESSION: Stable findings most suggestive of avascular necrosis involving both femoral heads Dictated by: Dr. Javy Leung MD 08/11/2020 11:52 Dr. Javy Leugn MD in [place] 08/11/2020 11:52
== END ==
PROVIDERS: PCP Physician Assistant; Visit Provider Orthopaedic Surgery
DX: M25.552 Pain in left hip (principal)
CPT/HCPCS: 73502

== ENCOUNTER → 2020-08-15 09:17 | Outpatient (CLI) | payer MEDICARE, OTHER, SELFPAY ==
--- NOTE | 2020-08-15 09:17 | IR_ITS ---
PROCEDURE: IR FLUORO GUIDED NEEDLE PLACE CLINICAL INDICATION: RT hip injection COMPARISON: No exams were available for comparison FINDINGS: Fluoro time 6 seconds. A single image is submitted with the needle in place overlying the right femoral neck. Contrast is present within the soft tissues about the right hip. Please correlate with fluoroscopic findings. IMPRESSION: Status post right hip injection with fluoroscopic guidance Dictated by: Jacky Keen MD 08/15/2020 17:11 Jacky Keen MD in [place] 08/15/2020 17:11
--- NOTE | 2020-08-16 13:22 | HMH.PROC ---
[facility] Procedure Note Procedure Note:: Date of Procedure: August 15, 2020 Pre-procedure diagnosis: avascular necrosis R hip Post-procedure diagnosis: same Procedure: intraarticular corticosteroid injection R hip Performed by: Kim Merlos MD Chemistry Technologist/s: none Anesthesia: local; 5cc 1% lidocaine w/o epinephrine Estimated Blood Loss: none History of present illness: 80-year-old female presents for initial orthopedic evaluation of bilateral hip pain, right greater than left. She has had several falls recently, at least 2-3 times per week. She has no previous injuries to or surgeries on either hip reported. She denies a history of sickle cell disease or significant alcohol use, but has had corticosteroids prescribed medically many times over the years, mostly for lung disease. She has a history of low back pain and did have an implanted pain pump which was removed in 2019. Prior surgeries include appendectomy, hysterectomy, cholecystectomy, thyroid surgery in 2 prior spine surgeries. Medical history includes hypertension, COPD, renal insufficiency, hyperlipidemia, coronary artery disease. She does not take any anticoagulants but does take a daily baby aspirin. Hip pain is primarily experienced at the groin with no popping. X-rays and MRI reveal avascular necrosis of the femoral heads bilaterally. There is not significant collapse or degenerative changes seen on x-ray, but some mild early collapse is possibly seen on MRI. Regardless, with the presence of AVN and the patient's age I would not recommend core decompression but would rather recommend total hip arthroplasty for pain relief. The patient is somewhat hesitant to undergo such a large procedure given her age and medical comorbidities, which I feel is reasonable. I have recommended intra-articular corticosteroid injection for both diagnostic and therapeutic purposes; if she receives good pain relief with this we may see how long she gets from it. If her pain returns we may consider surgery at that time. I discussed the risks of the procedure with her, including bleeding, neurovascular damage, bruising or swelling at the injection site, injection site infection, failure to alleviate her pain, increased pain, and possible allergic reactions to the medications. The patient vocalized understanding and provided informed consent for the procedure. Procedure Note: The patient presented to the radiology department and changed into a gown, exposing the affected R hip. Consent was reviewed and signed by both myself and the patient, all questions were answered. The patient was placed supine on the fluoroscopy table and the R hip exposed. The anterior groin/hip and proximal thigh were prepped with chlorhexidine. Timeout was performed. Next, the fluoro machine was brought in over the patient?s hip and a picture taken to confirm adequate visualization of the joint. I donned a pair of sterile surgical gloves; the remainder of the procedure was performed in a sterile fashion. A 20G spinal needle was held over the hip to approximate my desired entry point on the skin, on a line between the ASIS and the greater trochanter. Once this was established, a 25G needle was used to infiltrate injection site and estimated needle track with 5cc 1% lidocaine w/o epinephrine. Once the injection site was anesthetized, the spinal needle was advanced through the same puncture site and deeper towards the hip joint, aimed medially at a 30 degree angle. Using fluoro, it was confirmed that the needle was advanced until it was at the level of the femoral neck. The stylus was removed from the spinal needle and 2cc of iodinated contrast solution was injected through the spinal needle. Fluoro was taken again, and the dye confirmed intra-capsular placement of the spinal needle, indicating a successful intraarticular injection. The syringe with contrast was removed, keeping the spinal needle in place, and 40mg Kenalog with 2cc 1% lidocaine
== END ==
PROVIDERS: PCP Emergency Medicine; Visit Provider Orthopaedic Surgery
DX: M87.051 Idiopathic aseptic necrosis of right femur (principal); M25.551 Pain in right hip
CPT/HCPCS: 20610; 77002; Q9967

== ENCOUNTER 2020-12-06 17:51 | Inpatient (IN) | payer MEDICARE, SELFPAY ==
[2020-12-06] VITALS (12 sets, daily range): BP systolic 102–148; BP diastolic 42–74; PULSE 64–98; RESP 13–33; TEMP 36.6–37.2; O2SAT 64–93; BMI 16.6
--- NOTE | 2020-12-06 18:03 | ECG_ITS ---
APPROVED REPORT Exam: Resting ECG HR:102 bpm ECG Measurements Heart Rate 102 AXES NV 142 P 73 QRSd 64 QRS 71 QT 348 T 68 QTc 453 Conclusion Sinus tachycardia Possible Left atrial enlargement Nonspecific ST abnormality Abnormal ECG Electronically signed by : Tone Mensah, 12/07/2020 13:55:11
--- NOTE | 2020-12-06 18:22 | XR_ITS ---
PROCEDURE: XR CHEST PORTABLE CLINICAL HISTORY: sob Shortness of breath, smoker COMPARISON: CR CXR2V XR chest 2V from 07/19/2018 CR [id number] XR ribs LT min 3V w CXR1V from 12/22/[address] CHEST W CON from 09/20/2019 CR XR CHEST PORTABLE from 03/19/2020 FINDINGS: The cardiomediastinal silhouette and pulmonary vascularity are within normal limits. Increased density left lung base suggesting atelectasis or infiltrate. Minimal blunting left CP angle suggesting small effusion. Coarsening of the bronchovascular markings consistent with smoking related lung disease. No acute bony abnormalities. IMPRESSION: Left lower lobe infiltrate and/or atelectatic change with small effusion Dictated by: Jacky Keen MD 12/07/2020 06:22 Jacky Keen MD in [place] 12/07/2020 06:22
[2020-12-06 18:28] LABS: Basophils % 0.4 % (0.1-2.0); Eosinophils # 0.2 K/mm3 (0.0-0.4); Eosinophils % 1.6 % (0.1-12.0); Hematocrit 43.4 % (37.0-47.0); Hemoglobin 13.5 g/dL (12.2-16.2); Lymphocytes % 9.1 % (10-50); Mean Corpuscular Hemoglobin 27.3 pg (27.0-31.2); Mean Platelet Volume 8.7 fl (7.4-10.4); Monocytes # 0.4 K/mm3 (0.1-1.0); Monocytes % 3.6 % (1.7-9.3); Neutrophils # 9.1 K/mm3 (1.8-7.8); Neutrophils % 85.4 % (37.0-80.0); Platelet Count 182 K/mm3 (142-424); Red Blood Count 4.94 M/mm3 (4.20-5.40); Red Cell Distribution Width 15.3 % (11.5-17.5); White Blood Count 10.6 K/mm3 (4.8-10.8)
[2020-12-06 18:29] LABS: MANUAL DIFFERENTIAL MANUAL DIFFERENTIAL (MANUAL DIFF)
[2020-12-06 18:31] LABS: Chloride 103 mmol/L (98-107); Potassium 4.3 mmoL/L (3.5-5.1); Sodium 141 mmol/L (136-145)
[2020-12-06 18:33] LABS: Alanine Aminotransferase 21 U/L (12-78); Aspartate Amino Transferase 34 U/L (14-36); Blood Urea Nitrogen 26 mg/dl (7-17); Creatinine Clearance Estimated 27 mL/min (50-200); Estimated Glomerular Filt Rate 43 ml/min (>60); GFR (African American) 52 ML/MIN (>60)
[2020-12-06 18:34] LABS: Albumin Level 4.4 g/dl (3.5-5.0); Albumin/Globulin Ratio 1.3 (1.1-1.8); Alkaline Phosphatase 142 U/L (38-126); Anion Gap 15.3 mEq/L (5-15); Bilirubin,Total 0.7 mg/dl (0.2-1.3); Calcium 9.5 mg/dl (8.4-10.2); Carbon Dioxide 27 mmol/L (22.0-30.0); Globulin 3.3 g/dL (1.3-3.2); Glucose 127 mg/dl (74-100); Total Protein,Serum 7.7 g/dl (6.3-8.2)
[2020-12-06 18:38] LABS: Lactic Acid 2.1 mmol/L (0.7-2.1)
[2020-12-06 18:46] LABS: NT Pro Brain Natriuretic Pep. 970 pg/mL (0-450)
[2020-12-06 18:47] LABS: Troponin I < 0.01 ng/ml (0.00-0.034)
[2020-12-06 19:02] LABS: Eosinophils % 2 % (0-3); Lymphocytes % 7 % (10-50); Monocytes % 2 % (2-9); Neutrophils % 89 % (42-76); Platelet Estimate Normal; Total Cells Counted 100
[2020-12-06 19:03] LABS: RBC Morphology Normal
--- NOTE | 2020-12-06 19:25 | HMH.EDGENADL ---
ED Disposition Clinical Impression: CHF exacerbation Qualifiers: Heart failure type: unspecified Qualified Code(s): I50.9 - Heart failure, unspecified Disposition: Admitted As Inpatient Condition on Discharge: Good Referrals: Matthew Farooq MD [Primary Care Provider] - Time of Disposition: 19:32 - Critical Care Critical Care Time: No Attestation: On 12/06/20, the high probability of a clinically significant, sudden or life threatening deterioration of the following system(s) required my full and direct attention, intervention and personal management. The time I documented below is in addition to time spent performing reported procedures but includes the following listed in this critical care notation. Medical Decision Making - Medical Records Medical records reviewed: Yes: I reviewed the patient's medical records. - Andrea Inquiry Pt receiving controlled substance: No Vital Signs: 12/06/20 17:52 Temperature 98.9 F Temperature Source Oral Pulse Rate [Left Radial] 89 Respiratory Rate 18 Blood Pressure [Right Arm] 138/74 Blood Pressure Mean [Right Arm] 95 Blood Pressure Source [Right Arm] Automatic Cuff Blood Pressure Position [Right Arm] Sitting 02 Sat by Pulse Oximetry 64 L Oxygen Delivery Method Room Air - Lab Data Lab results reviewed: Yes: I reviewed the patient's lab results. Lab Results 12/06/20 18:05: WBC 10.6, RBC 4.94, Hgb 13.5, Hct 43.4, MCV 88.0, MCH 27.3, MCHC 31.0 L, RDW 15.3, Plt Count 182, MPV 8.7, Neut % (Auto) 85.4 H, Lymph % (Auto) 9.1 L, [place] % (Auto) 3.6, Eos % (Auto) 1.6, Baso % (Auto) 0.4, Neut # (Auto) 9.1 H, Lymph # (Auto) 1.0, [place] # (Auto) 0.4, Eos # (Auto) 0.2, Baso # (Auto) 0.0, Total Counted 100, Neutrophils % (Manual) 89 H, Lymphocytes % (Manual) 7 L, Monocytes % (Manual) 2, Eosinophils % (Manual) 2, Platelet Estimate Normal, RBC Morphology Normal 12/06/20 18:05: Sodium 141, Potassium 4.3, Chloride 103, Carbon Dioxide 27, Anion Gap 15.3 H, BUN 26 H, Creatinine 1.20 H, Estimated Creat Clear 27, Estimated GFR 43 L, Est GFR ( Amer) 52 L, Glucose 127 H, Calcium 9.5, Total Bilirubin 0.7, AST 34, ALT 21, Alkaline Phosphatase 142 H, Troponin I < 0.01, Total Protein 7.7, Albumin 4.4, Globulin 3.3 H, Albumin/Globulin Ratio 1.3 12/06/20 18:05: Lactate 2.1 12/06/20 18:05: NT-Pro-B Natriuret Pep 970 H Result diagrams: 12/06/20 18:05 12/06/20 18:05 Orders (Tests/Meds): ED MEDICATIONS Discontinued Medications Generic Name Dose Route Start Last Admin Trade Name Freq PRN Reason Stop Dose Admin Furosemide 20 mg 12/06/20 19:00 Furosemide 20 Mg/2 Ml Vial IV 12/06/20 19:01 ONCE ONE Methylprednisolone Sodium Succinate 125 mg 12/06/20 18:22 12/06/20 18:27 Methylprednisolone Sod Succ 125mg Vial IV 12/06/20 18:23 125 mg ONCE ONE Administration ORDERS Category Date Time Status CXR --portable [XR chest portable] Stat Exams 12/06/20 18:22 Taken Full Resp Panel w/COVID ([facility]) Routine Lab 12/06/20 18:29 Ordered Troponin I Q3H Lab 12/06/20 21:30 Ordered Troponin I Q3H Lab 12/07/20 00:30 Ordered Blood Culture Stat Micro 12/06/20 18:05 Received - Radiology Data #1 Image(s): Chest Image Reviewed: Yes I reviewed the patient's radiology image Preliminary Findings: Normal/NAD Hyperinflation - ECG Data Tracing #1 102 bpm, sinus tachycardia, no ST elevation or depression, no ectopy, normal intervals. ECG initial impression date: 12/06/20 ECG initial impression time: 18:07 Medical Decision Narrative: 80yo F evaluated for shortness of breath. Differential diagnosis includes but not limited to: ACS/ND, PE, pneumonia, COPD exacerbation, CHF exacerbation, GERD, anxiety, pneumothorax. Patient is in mild to moderate distress upon initial arrival. She is placed on 5 L nasal cannula. Her work of breathing improves with time. Laboratory studies are pending. CBC, CMP largely unremarkable. Troponin is negative. BNP is almost 2000, w
[2020-12-06 19:41] LABS: Adenovirus,PCR Not Detected (NotDetected); Bordetella Pertussis Not Detected (NotDetected); Chlamydophila Pneumoniae, PCR Not Detected (NotDetected); Coronavirus 19, PCR Not Detected (NotDetected); Coronavirus 229E Not Detected (NotDetected); Coronavirus NL63 Not Detected (NotDetected); Coronavirus OC43 Not Detected (NotDetected); Coronovirus HKU1,PCR Not Detected (NotDetected); Human Metapneumovirus Not Detected (NotDetected); Influenza A, PCR Not Detected (NotDetected); Influenza AH1, 2009 Not Detected (NotDetected); Influenza AH1, PCR Not Detected (NotDetected); Influenza AH3,PCR Not Detected (NotDetected); Influenza B, PCR Not Detected (NotDetected); Mycoplasma Pneumoniae, PCR Not Detected (NotDetected); Parainfluenza 1, PCR Not Detected (NotDetected); Parainfluenza 2, PCR Not Detected (NotDetected); Parainfluenza 3, PCR Not Detected (NotDetected); Parainfluenza 4, PCR Not Detected (NotDetected); Respiratory Syncytial Virus Not Detected (NotDetected)
[2020-12-06 21:08] LABS: Rhinovirus/Enterovirus Detected (NotDetected)
--- NOTE | 2020-12-06 21:27 | PC.NURSE ---
PT ARRIVED TO FLOOR VIA STRETCHER FROM ED W/STAFF AT [id number]
[2020-12-06 21:57] LABS: Troponin I < 0.01 ng/ml (0.00-0.034)
[2020-12-06 21:59] LABS: Reflex Lactic Add Lactic Reflex
[2020-12-07] VITALS (14 sets, daily range): BP systolic 90–122; BP diastolic 51–68; PULSE 60–100; RESP 18–24; TEMP 36.4–37.3; O2SAT 91–96; BMI 16.5
[2020-12-07 01:08] LABS: Troponin I < 0.01 ng/ml (0.00-0.034)
--- NOTE | 2020-12-07 05:23 | PC.NURSE ---
pt admitted for CHF exacerbation. currently on 5LNC. last bp was 90/54 manually. no infection documented. currently in contact/droplet for rhino. no pain or discomforted voiced. standby assist with walker when ambulating. pt does become soa easily. offered bsc for voiding and pt refused and walks to bathroom. iv patent. slept since well throughout the night. call light in reach. will continue to monitor
--- NOTE | 2020-12-07 07:20 | P.CONPHA_ITS ---
[facility] Pharmacy VTE Monitoring - Patient Demographics Admission date: 12/06/20 Report Date: 12/07/20 Time: 07:20 Allergies/Adverse Reactions: Patient Allergies aspirin [ASPIRIN] Allergy (Intermediate, Verified 08/11/20 09:08) I-ITCHING Penicillins [PENICILLINS] Allergy (Intermediate, Verified 08/11/20 09:08) I-RASH oxycodone [From PERCOCET] Allergy (Unknown, Verified 08/11/20 09:08) Gastrointestinal Upset egg Allergy (Verified 08/11/20 09:08) Vomiting hydrocodone [From Lortab] Allergy (Verified 08/11/20 09:08) Gastrointestinal Upset tramadol Allergy (Verified 08/11/20 09:08) Unknown allergy reaction Height: 1.7 m Weight: 47.797 kg Patient Problems: Current Active Problems CHF exacerbation (Acute) - VTE Risk Labs: VTE Related Lab Results Hgb 13.5 g/dL (12.2-16.2) 12/06/20 18:05 Hct 43.4 % (37.0-47.0) 12/06/20 18:05 Plt Count 182 K/mm3 (142-424) 12/06/20 18:05 BUN 26 mg/dl (7-17) H 12/06/20 18:05 Creatinine 1.20 mg/dl (0.52-1.04) H 12/06/20 18:05 Estimated Creat Clear 27 mL/min (50-200) 12/06/20 18:05 Was VTE Risk Assessment Performed: Yes VTE Score: 6 VTE Risk Level: Moderate Risk - Prophylaxis VTE Prophylaxis Ordered?: Yes Types of VTE Prophylaxis: TEDS Knee High, Pharmacological Location of Applied Device: Bilateral Lower Extremeties Pharmacologic Type: Enoxaparin
[2020-12-07 07:35] LABS: Basophils % 0.2 % (0.1-2.0); Eosinophils % 0.2 % (0.1-12.0); Hematocrit 38.1 % (37.0-47.0); Hemoglobin 12.4 g/dL (12.2-16.2); Lymphocytes # 0.4 K/mm3 (0.7-4.5); Lymphocytes % 5.5 % (10-50); Mean Corpuscular HGB Conc 32.4 g/dL (31.8-35.4); Mean Corpuscular Hemoglobin 27.9 pg (27.0-31.2); Mean Platelet Volume 8.9 fl (7.4-10.4); Monocytes # 0.3 K/mm3 (0.1-1.0); Monocytes % 3.5 % (1.7-9.3); Neutrophils # 7.2 K/mm3 (1.8-7.8); Neutrophils % 90.6 % (37.0-80.0); Platelet Count 125 K/mm3 (142-424); Red Blood Count 4.43 M/mm3 (4.20-5.40); Red Cell Distribution Width 15.3 % (11.5-17.5)
--- NOTE | 2020-12-07 07:40 | HMH.PHAINT ---
MEDICATION RECONCILIATION COMPLETED USING EXTERNAL FILL HISTORY AND PHYSICIAN OFFICE NOTE
[2020-12-07 07:47] LABS: Chloride 101 mmol/L (98-107)
[2020-12-07 07:48] LABS: MANUAL DIFFERENTIAL MANUAL DIFFERENTIAL (MANUAL DIFF); Potassium 4.9 mmoL/L (3.5-5.1); Sodium 139 mmol/L (136-145)
[2020-12-07 07:50] LABS: Blood Urea Nitrogen 34 mg/dl (7-17); Creatinine Clearance Estimated 24 mL/min (50-200); Estimated Glomerular Filt Rate 36 ml/min (>60); GFR (African American) 44 ML/MIN (>60)
[2020-12-07 07:51] LABS: Anion Gap 17.9 mEq/L (5-15); Calcium 8.9 mg/dl (8.4-10.2); Carbon Dioxide 25 mmol/L (22.0-30.0); Glucose 159 mg/dl (74-100)
--- NOTE | 2020-12-07 08:38 | CA_ITS ---
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: Aletha Carey CRT Ht: 203 ft 6 in Wt: 105lbs BSA: 20.84 BP: 138/74 mmHg Indications: COPD, Shortness of Breath, Palpitations, CAD, Hyperlipidemia, Hypertension/HDD, GERD, CHF, smoker 2D Dimensions LVOT 1.91 cm (M/F) 1.5-2.5 LA Volume 22.80 mL LA Volume Index 15.00 mL/m2 (M/F) 16-34 M-Mode Dimensions RVDd 2.74 cm (0.9-2.6) LA Diam 2.83 cm (1.9-4.0) LVDd 3.57 cm (3.5-5.7) Ao Diam 3.14 cm (2.0-3.7) LVDs 2.44 cm (3.5-5.7) IVSd 1.13 cm (0.6-1.1) PWd 0.56 cm (0.6-1.1) EF (Teich) 60.60% FS 31.70% EDV (Teich) 53.30 mL TAPSE 1.82 (<1.7) ESV (Teich) 21.00 mL LV Diastology E Decel Time 220.00 (160-240 msec) E/A Ratio 0.76 MED E' 9.80 (< 7 cm/sec) MED A' 14.00 cm/s E'/MED E' Ratio 6.55 (>14) LAT E' 6.20 (<10 cm/sec) LAT A' 10.90 cm/s E/LAT E' Ratio 10.35 (>14) Aortic Valve LVOT Max 113.00 (70-110 cm/s) LVOT VTI 15.34 cm AoV Peak Vern. 166.00 (50-130 cm/s) AO Peak GR. 11.10 mmHg AO Mean GR. 5.20 (<5 mmHg) AO VTI 27.51 (18-25 cm) CADEN (VTI) 1.60 (2.5-4.5 cm2) Mitral Valve MV A Velocity 84.00 (40-130 cm/s) E/A Ratio 0.76 MV Decel. Time 220.00 (160-240 ms) Tricuspid Valve TR P. Velocity 388.00 cm/s Left Ventricle Left atrium is mildly enlarged, left ventricle is normal size, mild concentric left ventricular hypertrophy, visually estimated ejection fraction 55% with no regional wall motion abnormality, grade 1 diastolic dysfunction seen without tissue Doppler evidence of raise left atrial pressure. Right Ventricle Right atrium and right ventricle are mildly enlarged with normal contractility. Aortic Valve Aortic valve is minimally thickened and fibrosed, there is no aortic stenosis or aortic insufficiency. Mitral Valve Mitral valve is grossly normal, there is mild mitral regurgitation. Tricuspid Valve Tricuspid grossly normal, there is mild tricuspid regurgitation, tricuspid regurgitation jet velocity is inadequate for calculation of the right ventricular systolic pressure. Pulmonic Valve Pulmonic valve is poorly visualized. Great Vessels Aortic root is normal size. Pericardium No significant pericardial effusion noted. Conclusion 1. Mild biatrial enlargement, normal left ventricular size, mild concentric left ventricular hypertrophy, visually estimated ejection fraction 55% with no regional wall motion abnormality, grade 1 diastolic dysfunction seen without tissue Doppler evidence of raise left atrial pressure. 2. Mildly enlarged right ventricle with normal contractility. 3. Mild mitral and tricuspid regurgitation. 4. No significant pericardial effusion noted. Electronically signed by : Eber Sue, 12/07/2020 15:15:46
--- NOTE | 2020-12-07 08:41 | HMH.CNCARD ---
History of Present Illness Consult date: 12/07/20 Requesting physician: Yoseph Carrion Consult reason: shortness of breath Chief complaint: soa History of present illness: This is an 80-year-old white female who presents to the emergency department with complaints of shortness of breath. The patient states that her shortness of breath has been worsening over the last 2 days and this was occurring with even minimal exertion. She is supposed to wear oxygen continuously all the time but she hardly ever wears her oxygen. The patient stent states that her shortness of breath has been associated with profound fatigue and weakness in the inability for her to get out of bed. She states her shortness of breath is also associated with a nonproductive cough. She states that her cough has been severe. She does notice some mild edema in her lower extremity at times. She denies any chest pain or pressure. She denies any fever, chills, nausea, vomiting, diarrhea, PND or orthopnea. She does continue to smoke. She has ruled out for an VA. Her BNP was elevated at 970. She did get a dose of Lasix. She states her shortness of breath is essentially unchanged. [facility] History I have reviewed the patient's past medical history: Yes Medical History: Reports:: Cancer (LUNG), Congestive Heart Failure, Chronic Obstructive Pulmonary Disease (COPD), Coronary Artery Disease, Cerebrovascular Accident, Depression, Gastroesophageal Reflux Disease(GERD), Hyperlipidemia, Hypertension, Myocardial Infarction, Palpitations Denies:: Diabetes Mellitus Type 1, Diabetes Mellitus Type 2, Internal Pacemaker, MRSA, Seizures *Have you ever received a pneumonia vaccine?: Yes *Have you received a flu vaccine this season?: Yes Other Medical History: Reports: Arthritis, Cataracts, Chemotherapy, Hypothyroidism, Radiation Therapy, Thyroid Disease. Denies: Blood Transfusion Reaction Other Surgeries: Yes: Appendectomy, Cardiac Catheterization, Cholecystectomy, Colonoscopy, Coronary Stent, Hysterectomy-Total, Thyroidectomy, Other. No: Pacemaker Amputation: No Fractures: No - *Social History Smoking Status: Current every day smoker Tobacco Type: cigarettes # Packs/Day (cigarettes): 4 #Yrs smoked (if former smoker): 60 Alcohol Intake: never Substance Use Type: denies use *Occupational Status:: retired Housing: other Household Members: other *Travel in the last 8 weeks: None - Psychiatric History Pschychiatric History:: Reports:: Depression Family Hx:: Bleeding Disorder, Cancer, Diabetes, Heart Attack, Hyperlipidemia, Hypertension, Stroke, Mental illness Meds Home Medications Medication Instructions Recorded Confirmed Type Levothyroxine Sodium 75 mcg PO DAILY 10/22/17 12/07/20 History [Levothyroxine 75mcg (0.075mg) Tab] diphenhydrAMINE HCL [Benadryl] 25 mg PO DAILY 11/24/17 12/07/20 History Albuterol Sulfate [Albuterol 2.5 mg IH TID 03/30/18 12/07/20 History 0.083% 2.5mg/3mL neb] sertraline 100 mg tablet 100 mg PO DAILY tab 03/23/20 12/06/20 History Pantoprazole Sodium 40 mg PO DAILY 12/06/20 12/07/20 History Aspirin [Aspirin 81mg EC Tab] 81 mg PO DAILY 12/07/20 12/07/20 History Gabapentin 300 mg PO TID 12/07/20 12/07/20 History Metoprolol Succinate [Toprol XL 50 mg PO DAILY 12/07/20 12/07/20 History 50mg Tablet] Allergies Allergy/AdvReac Type Severity Reaction Status Date / Time aspirin [ASPIRIN] Allergy Intermediate I-ITCHING Verified 12/07/20 08:03 Penicillins [PENICILLINS] Allergy Intermediate I-RASH Verified 08/11/20 09:08 oxycodone [From PERCOCET] Allergy Unknown Gastrointestinal Verified 08/11/20 09:08 Upset egg Allergy Vomiting Verified 08/11/20 09:08 hydrocodone [From Lortab] Allergy Gastrointestinal Verified 08/11/20 09:08 Upset tramadol Allergy Unknown Verified 08/11/20 09:08 allergy reaction Exam Vital signs and Labs for Last 24 Hours: Temp Pulse Resp BP Pulse Ox 98.2 F 67 19 106/51 L 92 L 12/07/20
[2020-12-07 09:19] LABS: Lymphocytes % 6 % (10-50); Monocytes % 2 % (2-9); Neutrophils % 92 % (42-76); Total Cells Counted 100
[2020-12-07 09:20] LABS: Platelet Estimate Normal; RBC Morphology Normal
--- NOTE | 2020-12-07 09:33 | CT_ITS ---
PROCEDURE: CT ANGIO CHEST CLINCIAL INDICATION: soa are, CHF exacerbation COMPARISON: CT ABDPELWO CT abdomen pelvis wo con from 07/08/[address] CHEST W CON from 09/20/2019 TECHNIQUE: IV Contrast: 70ML Isovue 370 Axial images obtained with sagittal and coronal reformats. All CT scans at the facility use one or more dose reduction, viz: automated exposure control, ma/kV adjustment per patient size (including targeted exams where dose is matched to indication, i.e. head), or iterative reconstruction technique. FINDINGS: HEART AND MEDIASTINAL STRUCTURES: No evidence of aortic aneurysm or dissection. Atherosclerotic changes are present involving the aorta with calcific plaque. No evidence of pulmonary embolus. Mediastinal adenopathy is noted and has progressed since the previous exam. LUNGS AND PLEURAL SPACES: COPD with centrilobular emphysema. 10 mm nodules present in the right middle lobe laterally. This could be due to an area of dense consolidation or developing pulmonary nodule. Consolidation is present inferior to this in the right middle lobe and medially in the right middle lobe. There are atelectatic changes in the right lung base. There is increased density surrounding the right lower lobe bronchovascular region centrally. Atelectatic changes are present in the left lung base. Faint nodular opacity is present in the left upper lobe posteriorly. Patchy density is present in the mid aspect of the left upper lobe. Bronchovascular thickening noted in the lingula. Atelectatic or fibrotic change in the left lung base laterally. BONY STRUCTURES: No acute bony abnormalities apparent. UPPER ABDOMEN: There is mild dilatation of the upper abdominal aorta incompletely imaged. There is a rounded nodule posterior to the right hepatic lobe measuring 14 mm previously measuring 12 mm. ADDITIONAL FINDINGS: No other significant abnormalities. IMPRESSION: 1. No evidence of pulmonary embolus. 2. Right middle lobe pulmonary nodule. Increased density is present in the bronchovascular region of the right lower lobe and may be due to adenopathy. Mediastinal adenopathy has progressed. These findings are could be neoplastic in nature. The adenopathy could also be reactive. Follow-up is suggested.. 3. Consolidation in the right middle lobe laterally with bronchovascular thickening in the lingula and may be due to underlying pneumonia. 4. Nodular density posterior to the right hepatic lobe slightly larger and may be neoplastic in nature Dictated by: Jacky Keen MD 12/07/2020 11:32 Jacky Keen MD in [place] 12/07/2020 11:32
--- NOTE | 2020-12-07 09:36 | HMH.HP ---
*Admission Date: 12/06/20 *Chief complaint: soa *History of present illness: 80-year-old white female who presents to the emergency department with complaints of shortness of breath. The patient states that her shortness of breath has been worsening over the last 2 days. Pt states significant smoking history, carries a prior diagnosis of lung cancer status post radiation around 2 years ago however never had a PET scan, lost to follow-up to [facility], has a lung nodule on her recent CT scan from August 2020. Pt states she is supposed to wear oxygen continuously all the time but she hardly ever wears her oxygen. The patient states that her shortness of breath has been associated with profound fatigue and weakness in the inability for her to get out of bed. She states her shortness of breath is also associated with a nonproductive cough. pt admitted for low o2 sats at home family states were in the 70's. consult pulmonology and cardiology due to chf and elevated bnp. [facility] History I have reviewed the patient's past medical history: Yes Medical History: Reports:: Cancer (LUNG), Congestive Heart Failure, Chronic Obstructive Pulmonary Disease (COPD), Coronary Artery Disease, Cerebrovascular Accident, Depression, Gastroesophageal Reflux Disease(GERD), Hyperlipidemia, Hypertension, Myocardial Infarction, Palpitations Denies:: Diabetes Mellitus Type 1, Diabetes Mellitus Type 2, Internal Pacemaker, MRSA, Seizures *Have you ever received a pneumonia vaccine?: Yes *Have you received a flu vaccine this season?: Yes Other Medical History: Reports: Arthritis, Cataracts, Chemotherapy, Hypothyroidism, Radiation Therapy, Thyroid Disease. Denies: Blood Transfusion Reaction Other Surgeries: Yes: Appendectomy, Cardiac Catheterization, Cholecystectomy, Colonoscopy, Coronary Stent, Hysterectomy-Total, Thyroidectomy, Other. No: Pacemaker Amputation: No Fractures: No - *Social History Smoking Status: Current every day smoker Tobacco Type: cigarettes # Packs/Day (cigarettes): 4 #Yrs smoked (if former smoker): 60 Alcohol Intake: never Substance Use Type: denies use *Occupational Status:: retired Housing: other Household Members: other *Travel in the last 8 weeks: None - Psychiatric History Pschychiatric History:: Reports:: Depression Family Hx:: Bleeding Disorder, Cancer, Diabetes, Heart Attack, Hyperlipidemia, Hypertension, Stroke, Mental illness Review of Systems - Review of Systems Review of systems:: pertinent systems reviewed and negative unless documented below - Constitutional Reports fatigue, Reports lack of energy, Denies body ache(s) - Eyes Denies change in vision - ENT Denies post nasal drip - *Cardiovascular Reports shortness of breath, Denies chest pain at rest - *Respiratory Reports cough, Reports shortness of breath, Reports shortness of breath with activity, Reports wheezing - *Gastrointestinal Denies abdominal pain - *Genitourinary Denies abnormal vaginal bleeding - *Musculoskeletal Denies decreased muscle mass - Integumentary/Breasts Denies rash - *Neurologic Denies headache(s) - Psychiatric Denies lack of enjoyment, Denies anxiety - Endocrine Denies excessive sweating - Hematologic/Lymphatic Denies enlarged lymph nodes Meds Home Medications Medication Instructions Recorded Confirmed Type Levothyroxine Sodium 75 mcg PO DAILY 10/22/17 12/07/20 History [Levothyroxine 75mcg (0.075mg) Tab] diphenhydrAMINE HCL [Benadryl] 25 mg PO DAILY 11/24/17 12/07/20 History Albuterol Sulfate [Albuterol 2.5 mg IH TID 03/30/18 12/07/20 History 0.083% 2.5mg/3mL neb] sertraline 100 mg tablet 100 mg PO DAILY tab 03/23/20 12/06/20 History Pantoprazole Sodium 40 mg PO DAILY 12/06/20 12/07/20 History Aspirin [Aspirin 81mg EC Tab] 81 mg PO DAILY 12/07/20 12/07/20 History Gabapentin 300 mg PO TID 12/07/20 12/07/20 History Metoprolol Succinate [Toprol XL 50 mg PO DAILY 12/07/20 12/07/20 History 50mg Tabl
--- NOTE | 2020-12-07 09:57 | HMH.PULMCON ---
*Admission Date: 12/06/20 *Reason for consult:: COPD exacerbation *History of present illness: Ms. Steve is a 80-year-old female significant smoking history, carries a prior diagnosis of lung cancer status post radiation around 2 years ago however never had a PET scan, lost to follow-up to [facility], has a lung nodule on her recent CT scan from August 2020 presented to the hospital complaining of worsening shortness of breath associated with cough and productive phlegm along with diffuse body aches and fatigue. [facility] History Medical History: Reports:: Cancer (LUNG), Congestive Heart Failure, Chronic Obstructive Pulmonary Disease (COPD), Coronary Artery Disease, Cerebrovascular Accident, Depression, Gastroesophageal Reflux Disease(GERD), Hyperlipidemia, Hypertension, Myocardial Infarction, Palpitations Denies:: Diabetes Mellitus Type 1, Diabetes Mellitus Type 2, Internal Pacemaker, MRSA, Seizures *Have you ever received a pneumonia vaccine?: Yes *Have you received a flu vaccine this season?: Yes Other Medical History: Reports: Arthritis, Cataracts, Chemotherapy, Hypothyroidism, Radiation Therapy, Thyroid Disease. Denies: Blood Transfusion Reaction Other Surgeries: Yes: Appendectomy, Cardiac Catheterization, Cholecystectomy, Colonoscopy, Coronary Stent, Hysterectomy-Total, Thyroidectomy, Other. No: Pacemaker Amputation: No Fractures: No - *Social History Smoking Status: Current every day smoker Tobacco Type: cigarettes # Packs/Day (cigarettes): 4 #Yrs smoked (if former smoker): 60 Alcohol Intake: never Substance Use Type: denies use *Occupational Status:: retired Housing: other Household Members: other *Travel in the last 8 weeks: None - Psychiatric History Pschychiatric History:: Reports:: Depression Family Hx:: Bleeding Disorder, Cancer, Diabetes, Heart Attack, Hyperlipidemia, Hypertension, Stroke, Mental illness ROS - Cons Reports anorexia, Reports body ache(s), Reports lack of energy, Reports malaise, Reports weight loss - ENT Denies difficulty swallowing - Card Reports shortness of breath, Reports shortness of breath with activity - Resp Respiratory: Reports chest congestion, Reports dyspnea, Reports dyspnea on exertion, Reports excessive phlegm production - GI Gastrointestingal: Denies: abdominal pain - [place] Musculoskeletal: Reports muscle weakness Meds Home Medications Medication Instructions Recorded Confirmed Type Levothyroxine Sodium 75 mcg PO DAILY 10/22/17 12/07/20 History [Levothyroxine 75mcg (0.075mg) Tab] diphenhydrAMINE HCL [Benadryl] 25 mg PO DAILY 11/24/17 12/07/20 History Albuterol Sulfate [Albuterol 2.5 mg IH TID 03/30/18 12/07/20 History 0.083% 2.5mg/3mL neb] sertraline 100 mg tablet 100 mg PO DAILY tab 03/23/20 12/06/20 History Pantoprazole Sodium 40 mg PO DAILY 12/06/20 12/07/20 History Aspirin [Aspirin 81mg EC Tab] 81 mg PO DAILY 12/07/20 12/07/20 History Gabapentin 300 mg PO TID 12/07/20 12/07/20 History Metoprolol Succinate [Toprol XL 50 mg PO DAILY 12/07/20 12/07/20 History 50mg Tablet] Allergies Allergy/AdvReac Type Severity Reaction Status Date / Time aspirin [ASPIRIN] Allergy Intermediate I-ITCHING Verified 12/07/20 08:03 Penicillins [PENICILLINS] Allergy Intermediate I-RASH Verified 08/11/20 09:08 oxycodone [From PERCOCET] Allergy Unknown Gastrointestinal Verified 08/11/20 09:08 Upset egg Allergy Vomiting Verified 08/11/20 09:08 hydrocodone [From Lortab] Allergy Gastrointestinal Verified 08/11/20 09:08 Upset tramadol Allergy Unknown Verified 08/11/20 09:08 allergy reaction Exam - Constitutional Constitutional:: Present: no acute distress, comfortable - HENMT Exam HENMT: Present: normocephalic, atraumatic - Eye Exam Eyes:: Present: eyelids normal - Neck Exam Neck:: Present: normal visual inspection - Respiratory Exam Respiratory:: Present: able to speak in complete sentences, decreased breath sounds, wh
[2020-12-07 09:59] LABS: ABG Base Excess -1.8 mmol/L (-2.4-2.3); ABG HCO3 23.3 mmhg (22.0-26.0); ABG Oxygen Saturation 93 % (90-100); ABG PCO2 40.5 mmhg (35.0-45.0); ABG PH 7.38 mmol/L (7.35-7.45); ABG PO2 66.1 mmhg (80-100); ABG TCO2 24.6 mmhg (23-27)
[2020-12-07 10:03] LABS: Allen's Test Acceptable; Source Left Radial
--- NOTE | 2020-12-07 19:30 | PC.NURSE ---
PT IS RESTING IN BED. PT HAS BEEN VERY WEAK THIS SHIFT. AMBULATES TO THE BATHROOM WITH 1 ASSIST. VERY UNSTEADY. TEDS NOTED TO BLE. PT COMPLAINS OF PAIN IN HER RT SIDE WHEN SHE COUGHS (TYLENOL GIVEN). LUNG SOUNDS DIMINISHED WITH SCATTERED RHONCHI. ABDOMEN SOFT/NON TENDER WITH ACTIVE BOWEL SOUNDS. PT STATED HER LAST BOWEL MOVEMENT WAS YESTERDAY MORNING. PT HAS BSC IN THE ROOM BUT PREFERS TO USE THE BATHROOM. SINUS TACH ON THE MONITOR. O2 SATURATION HAS MAINTAINED 90-92% ON 5 L NC. SPUTUM COLLECTED. REPORT HAND OFF TO BUZZ CHANDLER RN.
--- NOTE | 2020-12-07 22:40 | PC.NURSE ---
PT STATES THAT SHE IS SUPPOSED TO WEAR 4L @ HOME.
[2020-12-08] VITALS (10 sets, daily range): BP systolic 86–118; BP diastolic 38–67; PULSE 50–100; RESP 16–24; TEMP 36.4–36.8; O2SAT 92–98; BMI 16.5; BMI 16.6
--- NOTE | 2020-12-08 05:00 | PC.NURSE ---
pt has rested t/o shift, has not complained of SOA or chest pain, turned O2 down to 4L at 0400, O2 sats 94-98% on 5L and 96% on 4L, lungs diminished on auscultation
[2020-12-08 07:19] LABS: Basophils % 0.2 % (0.1-2.0); Eosinophils % 0.2 % (0.1-12.0); Hematocrit 35.1 % (37.0-47.0); Hemoglobin 11.4 g/dL (12.2-16.2); Lymphocytes # 0.6 K/mm3 (0.7-4.5); Lymphocytes % 11.7 % (10-50); Mean Corpuscular HGB Conc 32.6 g/dL (31.8-35.4); Mean Corpuscular Hemoglobin 28.1 pg (27.0-31.2); Mean Platelet Volume 9.3 fl (7.4-10.4); Monocytes # 0.2 K/mm3 (0.1-1.0); Monocytes % 3.9 % (1.7-9.3); Neutrophils # 4.6 K/mm3 (1.8-7.8); Neutrophils % 84.1 % (37.0-80.0); Platelet Count 110 K/mm3 (142-424); Red Blood Count 4.08 M/mm3 (4.20-5.40); Red Cell Distribution Width 15.3 % (11.5-17.5); White Blood Count 5.4 K/mm3 (4.8-10.8)
[2020-12-08 07:32] LABS: Chloride 99 mmol/L (98-107); Potassium 4.1 mmoL/L (3.5-5.1); Sodium 136 mmol/L (136-145)
[2020-12-08 07:35] LABS: Anion Gap 10.1 mEq/L (5-15); Blood Urea Nitrogen 46 mg/dl (7-17); Carbon Dioxide 31 mmol/L (22.0-30.0); Creatinine Clearance Estimated 20 mL/min (50-200); Estimated Glomerular Filt Rate 29 ml/min (>60); GFR (African American) 35 ML/MIN (>60)
[2020-12-08 07:36] LABS: Calcium 8.6 mg/dl (8.4-10.2); Glucose 104 mg/dl (74-100)
--- NOTE | 2020-12-08 10:21 | HMH.PNCARD ---
Subjective Date: 12/08/20 Time: 10:00 Principal diagnosis: Dyspnea Interval history: 80-year-old female admitted [facility] with increased shortness of breath. Patient was given Lasix IV x1 dose yesterday. Patient states throughout the night her shortness of breath was improving slightly. Does continue to be short of breath with minimal exertion. Patient is noted to be on oxygen by nasal cannula. Patient denies chest pain, tightness or pressure. No swelling noted of the lower extremities. Creatinine upon labs this a.m. revealed 1.70 which is a bump from yesterday's level. We will continue to monitor the status of her BMP and renal function. Patient denies dizziness or palpitations. Echocardiogram revealed EF 55% with no wall motion abnormality, grade 1 diastolic dysfunction and MR and TR mild regurgitation. No further cardiac testing is indicated at this time unless patient's condition deteriorates. Discussed plan of care with Dr. Brown. We will continue to monitor BMP and renal status. Will defer management of COPD to PCP and pulmonology. Please notify cardiology of any changes in patient status. No further cardiac testing is recommended at this time, unless patient's condition deteriorates. Chest CTA:IMPRESSION: 1. No evidence of pulmonary embolus. 2. Right middle lobe pulmonary nodule. Increased density is present in the bronchovascular region of the right lower lobe and may be due to adenopathy. Mediastinal adenopathy has progressed. These findings are could be neoplastic in nature. The adenopathy could also be reactive. Follow-up is suggested.. 3. Consolidation in the right middle lobe laterally with bronchovascular thickening in the lingula and may be due to underlying pneumonia. 4. Nodular density posterior to the right hepatic lobe slightly larger and may be neoplastic in nature Echo:Conclusion 1. Mild biatrial enlargement, normal left ventricular size, mild concentric left ventricular hypertrophy, visually estimated ejection fraction 55% with no regional wall motion abnormality, grade 1 diastolic dysfunction seen without tissue Doppler evidence of raise left atrial pressure. 2. Mildly enlarged right ventricle with normal contractility. 3. Mild mitral and tricuspid regurgitation. 4. No significant pericardial effusion noted. Thank you for allowing cardiology to participate in the care of this patient. Exam Vital signs and Labs for Last 24 Hours: Temp Pulse Resp BP Pulse Ox 97.5 F L 60 18 100/38 L 93 L 12/08/20 08:00 12/08/20 08:14 12/08/20 08:14 12/08/20 08:14 12/08/20 08:14 Laboratory Results - last 24 hr 12/08/20 06:50: Sodium 136, Potassium 4.1, Chloride 99, Carbon Dioxide 31 H D, Anion Gap 10.1, BUN 46 H D, Creatinine 1.70 H D, Estimated Creat Clear 20, Estimated GFR 29 L, Est GFR ( Amer) 35 L D, Glucose 104 H D, Calcium 8.6 12/08/20 06:50: WBC 5.4 D, RBC 4.08 L, Hgb 11.4 L, Hct 35.1 L, MCV 86.0, MCH 28.1, MCHC 32.6, RDW 15.3, Plt Count 110 L, MPV 9.3, Neut % (Auto) 84.1 H, Lymph % (Auto) 11.7, [place] % (Auto) 3.9, Eos % (Auto) 0.2, Baso % (Auto) 0.2, Neut # (Auto) 4.6, Lymph # (Auto) 0.6 L, [place] # (Auto) 0.2, Eos # (Auto) 0.0, Baso # (Auto) 0.0 I & O for Last 24 hours: Intake & Output 12/05/20 12/06/20 12/07/20 12/08/20 23:59 23:59 23:59 23:59 Intake Total 360 / 360 190 / 190 Balance 360 / 360 190 / 190 Weight 106 lb 4 oz 105 lb 6 oz 105 lb 8 oz Microbiology Reports for the Last 24 Hours: Microbiology 12/07/20 18:22 Sputum - Expectorated Sputum Gram Stain - Final 12/07/20 18:22 Sputum - Expectorated Sputum Sputum Culture - Final - Constitutional moderate distress, thin, chronically ill appearing, cooperative - *Routine HEENT Exam ENT: Present: mucous membranes moist - *Routine Neck Exam Present: supple, full ROM, normal carotid upstroke. Absent: JVD, carotid bruit, lymphadenopathy - *Routine Resp
--- NOTE | 2020-12-08 11:50 | HMH.PULMPN ---
Internal Medicine - PN: Subj *Date: 12/08/20 *Time: 11:50 Interval history: No acute respiratory events. Patient respiratory status continued to improve. Exam - Constitutional Constitutional:: Present: no acute distress, comfortable - HENMT Exam HENMT: Present: normocephalic, atraumatic - Eye Exam Eyes:: Present: eyelids normal - Neck Exam Neck:: Present: normal visual inspection - Respiratory Exam Respiratory:: Present: able to speak in complete sentences, lungs clear, no respiratory distress. Absent: wheezing - Cardiovascular Exam Cardiac:: Present: S1, S2 - GI Exam GI:: Present: soft - Skin Exam Skin: Present: warm, no rash - Neurological Exam Neurological: Present: alert, awake - Extremities Exam Extremities: Present: no cyanosis, no clubbing, no edema Assessment and Plan (1) Shortness of breath Status: Acute Category: Medical Code(s): R06.02 - Shortness of breath (2) CHF exacerbation Status: Acute Qualifiers: Heart failure type: diastolic Qualified Code(s): I50.33 - Acute on chronic diastolic (congestive) heart failure Category: Medical Code(s): I50.9 - Heart failure, unspecified (3) COPD (chronic obstructive pulmonary disease) with acute bronchitis Status: Chronic Category: Medical Code(s): J44.0 - Chronic obstructive pulmonary disease with (acute) lower respiratory infection; J20.9 - Acute bronchitis, unspecified (4) HLD (hyperlipidemia) Status: Chronic Qualifiers: Hyperlipidemia type: mixed hyperlipidemia Qualified Code(s): E78.2 - Mixed hyperlipidemia Category: Medical Code(s): E78.5 - Hyperlipidemia, unspecified (5) HTN (hypertension) Status: Chronic Qualifiers: Hypertension type: essential hypertension Qualified Code(s): I10 - Essential (primary) hypertension Category: Medical Code(s): I10 - Essential (primary) hypertension (6) Tobacco dependence syndrome Status: Chronic Category: Medical Code(s): F17.200 - Nicotine dependence, unspecified, uncomplicated (7) CAD (coronary artery disease) Status: Chronic Qualifiers: Coronary Disease-Associated Artery/Lesion type: [place] artery [place] vs. transplanted heart: [place] heart Associated angina: without angina Qualified Code(s): I25.10 - Atherosclerotic heart disease of [place] coronary artery without angina pectoris Category: Medical Code(s): I25.10 - Atherosclerotic heart disease of [place] coronary artery without angina pectoris (8) Renal insufficiency Status: Acute Category: Medical Code(s): N28.9 - Disorder of kidney and ureter, unspecified (9) Low body mass index (BMI) Status: Acute Category: Medical (10) History of lung cancer Status: Chronic Category: Medical Code(s): Z85.118 - Personal history of other malignant neoplasm of bronchus and lung (11) History of lung cancer Status: Chronic Category: Medical Code(s): Z85.118 - Personal history of other malignant neoplasm of bronchus and lung (12) Incidental lung nodule, greater than or equal to 8mm Status: Acute Category: Medical Code(s): R91.1 - Solitary pulmonary nodule (13) Incidental lung nodule, greater than or equal to 8mm Status: Acute Category: Medical Code(s): R91.1 - Solitary pulmonary nodule - Assessment and plan all Dx Assessment and Plan for all problems:: #COPD exacerbation: #History of lung cancer: 78-year-old female significant smoking history not using any inhalers at home, carries a prior diagnosis COPD and CHF presented to the hospital worsening respiratory failure acid cough and productive phlegm. Afebrile. No evidence of leukocytosis. Chest x-ray bilateral hyperinflated lung with questionable left lower lobe infiltrate with trace effusion. Auscultation revealed bilateral distant breath sounds and mild expiratory wheeze. Appeared to be in mild respiratory distress. Patient appears weak and cachectic. Using any accessory muscles for radha
--- NOTE | 2020-12-08 14:27 | PC.NURSE ---
statement distribution clerk called this nurse and stated that pt's HR had increased to 140's and sustaining, pt checked on and in no distress, denies chest pain or feeling heart feeling fluttery . BP 110/58, SPO2 93%, RR 22, HR 142 Heart monitor checked at desk and found to be still in 130-140's. RT called for stat EKG, before EKG could be performed pt HR decreased back to 80-90's. Cardiology notified of change and what had happened. Per Shazia, given 25 mg Metoprolol Succ now and monitor pt, if she tolerates may given additional 25 mg.
--- NOTE | 2020-12-08 17:19 | HMH.ACPN2 ---
Internal Medicine - PN: Subj *Date: 12/08/20 *Time: 09:00 Interval history: pt laying in bed states she is feeling better, discussed ct results with pt Exam Vital signs and Labs for Last 24 Hours: Temp Pulse Resp BP Pulse Ox 98.2 F 80 21 110/58 L 94 L 12/08/20 12:00 12/08/20 16:00 12/08/20 12:00 12/08/20 12:00 12/08/20 12:00 Laboratory Results - last 24 hr 12/08/20 06:50: Sodium 136, Potassium 4.1, Chloride 99, Carbon Dioxide 31 H D, Anion Gap 10.1, BUN 46 H D, Creatinine 1.70 H D, Estimated Creat Clear 20, Estimated GFR 29 L, Est GFR ( Amer) 35 L D, Glucose 104 H D, Calcium 8.6 12/08/20 06:50: WBC 5.4 D, RBC 4.08 L, Hgb 11.4 L, Hct 35.1 L, MCV 86.0, MCH 28.1, MCHC 32.6, RDW 15.3, Plt Count 110 L, MPV 9.3, Neut % (Auto) 84.1 H, Lymph % (Auto) 11.7, [place] % (Auto) 3.9, Eos % (Auto) 0.2, Baso % (Auto) 0.2, Neut # (Auto) 4.6, Lymph # (Auto) 0.6 L, [place] # (Auto) 0.2, Eos # (Auto) 0.0, Baso # (Auto) 0.0 I & O for Last 24 hours: Intake & Output 12/06/20 12/07/20 12/08/20 12/09/20 11:59 11:59 11:59 11:59 Intake Total 120 / 120 430 / 430 420 / 420 Balance 120 / 120 430 / 430 420 / 420 Weight 105 lb 6 oz 105 lb 8 oz 105 lb 13.15 oz Microbiology Reports for the Last 24 Hours: Microbiology 12/08/20 08:20 Sputum - Expectorated Sputum Gram Stain - Final 12/07/20 18:22 Sputum - Expectorated Sputum Gram Stain - Final 12/07/20 18:22 Sputum - Expectorated Sputum Sputum Culture - Final - Constitutional no acute distress, thin, chronically ill appearing - *Routine HEENT Exam Head: Present: normocephalic Eye: Present: PERRL ENT: Present: mucous membranes moist - *Routine Neck Exam Present: supple. Absent: lymphadenopathy - *Routine Respiratory Exam Present: wheezes, diminished air movement - *Routine Cardiovascular Exam Present: RRR - *Routine Abdominal Exam Present: soft, normoactive bowel sounds. Absent: tenderness - *Routine Extremities Exam Present: normal capillary refill. Absent: cyanosis, clubbing, edema - *Routine Skin Exam Present: warm. Absent: rash - *Routine Neurological Exam Present: alert, oriented X3 - Routine Psychiatric Exam Present: normal affect Assessment and Plan (1) Shortness of breath Status: Acute Category: Medical Code(s): R06.02 - Shortness of breath (2) CHF exacerbation Status: Acute Qualifiers: Heart failure type: diastolic Qualified Code(s): I50.33 - Acute on chronic diastolic (congestive) heart failure Category: Medical Code(s): I50.9 - Heart failure, unspecified (3) COPD (chronic obstructive pulmonary disease) with acute bronchitis Status: Chronic Category: Medical Code(s): J44.0 - Chronic obstructive pulmonary disease with (acute) lower respiratory infection; J20.9 - Acute bronchitis, unspecified (4) HLD (hyperlipidemia) Status: Chronic Qualifiers: Hyperlipidemia type: mixed hyperlipidemia Qualified Code(s): E78.2 - Mixed hyperlipidemia Category: Medical Code(s): E78.5 - Hyperlipidemia, unspecified (5) HTN (hypertension) Status: Chronic Qualifiers: Hypertension type: essential hypertension Qualified Code(s): I10 - Essential (primary) hypertension Category: Medical Code(s): I10 - Essential (primary) hypertension (6) Tobacco dependence syndrome Status: Chronic Category: Medical Code(s): F17.200 - Nicotine dependence, unspecified, uncomplicated (7) CAD (coronary artery disease) Status: Chronic Qualifiers: Coronary Disease-Associated Artery/Lesion type: [place] artery [place] vs. transplanted heart: [place] heart Associated angina: without angina Qualified Code(s): I25.10 - Atherosclerotic heart disease of [place] coronary artery without angina pectoris Category: Medical Code(s): I25.10 - Atherosclerotic heart disease of [place] coronary artery without angina pectoris (8) Renal insufficiency Status: Acute Category: Medical Code(s): N
--- NOTE | 2020-12-08 18:56 | PC.NURSE ---
No acute changes. Pt remains on 4 L nasal cannula. BP wnl this afternoon. Pt ambulates w/ standby assistance and use of walker back and forth to bathroom. No complaints voiced this shift. Call miranda w/in reach.
[2020-12-09] VITALS (7 sets, daily range): BP systolic 102–143; BP diastolic 47–76; PULSE 64–90; RESP 17–24; TEMP 36.4–36.7; O2SAT 90–97
--- NOTE | 2020-12-09 05:25 | PC.NURSE ---
pt has been more talkative this shift, has rested some, no complaints of SOA or chest pain, remains on 4L NC, O2 sats 91-92%, inspiratory and expiratory wheezing noted on auscultation, systolic BP 102-143, HR 64-89
[2020-12-09 07:21] LABS: Basophils % 0.1 % (0.1-2.0); Eosinophils % 0.1 % (0.1-12.0); Hematocrit 34.4 % (37.0-47.0); Hemoglobin 11.1 g/dL (12.2-16.2); Lymphocytes # 0.3 K/mm3 (0.7-4.5); Lymphocytes % 7.4 % (10-50); Mean Corpuscular HGB Conc 32.3 g/dL (31.8-35.4); Mean Corpuscular Hemoglobin 28.2 pg (27.0-31.2); Mean Corpuscular Volume 87.2 fl (81-99); Mean Platelet Volume 8.8 fl (7.4-10.4); Monocytes # 0.1 K/mm3 (0.1-1.0); Monocytes % 3.4 % (1.7-9.3); Neutrophils # 3.5 K/mm3 (1.8-7.8); Neutrophils % 89.1 % (37.0-80.0); Platelet Count 118 K/mm3 (142-424); Red Blood Count 3.94 M/mm3 (4.20-5.40); Red Cell Distribution Width 14.9 % (11.5-17.5); White Blood Count 3.9 K/mm3 (4.8-10.8)
[2020-12-09 07:26] LABS: Chloride 103 mmol/L (98-107); Sodium 138 mmol/L (136-145)
[2020-12-09 07:29] LABS: Blood Urea Nitrogen 44 mg/dl (7-17); Creatinine Clearance Estimated 28 mL/min (50-200); Estimated Glomerular Filt Rate 43 ml/min (>60); GFR (African American) 52 ML/MIN (>60)
[2020-12-09 07:30] LABS: Calcium 9.1 mg/dl (8.4-10.2); Carbon Dioxide 30 mmol/L (22.0-30.0); Glucose 136 mg/dl (74-100)
[2020-12-09 07:31] LABS: MANUAL DIFFERENTIAL MANUAL DIFFERENTIAL (MANUAL DIFF)
[2020-12-09 08:01] LABS: Lymphocytes % 11 % (10-50); Monocytes % 4 % (2-9); Neutrophils % 85 % (42-76); Platelet Estimate Normal; RBC Morphology Normal; Total Cells Counted 100
--- NOTE | 2020-12-09 11:02 | HMH.DCSUM ---
General - General Admission date:: 12/06/20 Discharge date: 12/09/20 HPI HPI: 80-year-old white female who presents to the emergency department with complaints of shortness of breath. The patient states that her shortness of breath has been worsening over the last 2 days. Pt states significant smoking history, carries a prior diagnosis of lung cancer status post radiation around 2 years ago however never had a PET scan, lost to follow-up to [facility], has a lung nodule on her recent CT scan from August 2020. Pt states she is supposed to wear oxygen continuously all the time but she hardly ever wears her oxygen. The patient states that her shortness of breath has been associated with profound fatigue and weakness in the inability for her to get out of bed. She states her shortness of breath is also associated with a nonproductive cough. pt admitted for low o2 sats at home family states were in the 70's. consult pulmonology and cardiology due to chf and elevated bnp. Hospital Course Hospital Course: Laboratory Tests 12/06/20 12/06/20 12/06/20 18:05 18:05 18:05 WBC 10.6 RBC 4.94 Hgb 13.5 Hct 43.4 MCV 88.0 MCH 27.3 MCHC 31.0 L RDW 15.3 Plt Count 182 MPV 8.7 Neut % (Auto) 85.4 H Lymph % (Auto) 9.1 L [place] % (Auto) 3.6 Eos % (Auto) 1.6 Baso % (Auto) 0.4 Neut # (Auto) 9.1 H Lymph # (Auto) 1.0 [place] # (Auto) 0.4 Eos # (Auto) 0.2 Baso # (Auto) 0.0 Total Counted 100 Neutrophils % (Manual) 89 H Lymphocytes % (Manual) 7 L Monocytes % (Manual) 2 Eosinophils % (Manual) 2 Platelet Estimate Normal RBC Morphology Normal Specimen Source O2 % ABG pH ABG pCO2 ABG pO2 ABG HCO3 ABG Total CO2 ABG O2 Saturation ABG Base Excess Jacky Test Sodium 141 Potassium 4.3 Chloride 103 Carbon Dioxide 27 Anion Gap 15.3 H BUN 26 H Creatinine 1.20 H Estimated Creat Clear 27 Estimated GFR 43 L Est GFR ( Amer) 52 L Glucose 127 H Lactate 2.1 Calcium 9.5 Total Bilirubin 0.7 AST 34 ALT 21 Alkaline Phosphatase 142 H Troponin I < 0.01 NT-Pro-B Natriuret Pep Total Protein 7.7 Albumin 4.4 Globulin 3.3 H Albumin/Globulin Ratio 1.3 Chlamy pneumoniae PCR Adenovirus (PCR) B. pertussis DNA (PCR) Coronavirus OC43 (PCR) Coronavirus HKU1 (PCR) Coronavirus 229E (PCR) SARS-CoV-2 (PCR) Coronavirus NL63 (PCR) Human Metapneumovir PCR Influenza A (H1) PCR Influ A (H1N1/09) PCR Influenza A (H3) PCR Influenza Type A (PCR) Influenza Type B (PCR) M. pneumoniae (PCR) Parainfluenza 1 (PCR) Parainfluenza 2 (PCR) Parainfluenza 3 (PCR) Parainfluenza 4 (PCR) RSV (PCR) Entero/Rhino (PCR) 12/06/20 12/06/20 12/06/20 18:05 19:14 21:10 WBC RBC Hgb Hct MCV MCH MCHC RDW Plt Count MPV Neut % (Auto) Lymph % (Auto) [place] % (Auto) Eos % (Auto) Baso % (Auto) Neut # (Auto) Lymph # (Auto) [place] # (Auto) Eos # (Auto) Baso # (Auto) Total Counted Neutrophils % (Manual) Lymphocytes % (Manual) Monocytes % (Manual) Eosinophils % (Manual) Platelet Estimate RBC Morphology Specimen Source O2 % ABG pH ABG pCO2 ABG pO2 ABG HCO3 ABG Total CO2 ABG O2 Saturation ABG Base Excess Jacky Test Sodium Potassium Chloride Carbon Dioxide Anion Gap BUN Creatinine Estimated Creat Clear Estimated GFR Est GFR ( Amer) Glucose Lactate Calcium Total Bilirubin AST ALT Alkaline Phosphatase Troponin I < 0.01 NT-Pro-B Natriuret Pep 970 H Total Protein Albumin Globulin Albumin/Globulin Ratio Chlamy pneumoniae PCR Not detected Adenovirus (PCR) Not detected B. pertussis DNA (PCR) Not detected Coronaviru
== END 2020-12-09 12:00 | disposition home or self-care (01) | DRG 291 ==
LOC: ER 19:33 → 2ND 12-07 07:56
PROVIDERS: Nurse Practitioner Family; Admitting Provider Family Medicine; Emergency Provider Family Medicine; PCP Emergency Medicine; Visit Provider Family Medicine
DX: I11.0 Hypertensive heart disease with heart failure (principal); J96.90 Respiratory failure, unspecified, unspecified whether with hypoxia or hypercapnia; J44.0 Chronic obstructive pulmonary disease with (acute) lower respiratory infection; J44.1 Chronic obstructive pulmonary disease with (acute) exacerbation; I50.33 Acute on chronic diastolic (congestive) heart failure; I25.10 Atherosclerotic heart disease of native coronary artery without angina pectoris; F17.210 Nicotine dependence, cigarettes, uncomplicated; Z88.0 Allergy status to penicillin; Z88.1 Allergy status to other antibiotic agents; Z88.5 Allergy status to narcotic agent; Z79.899 Other long term (current) drug therapy; Z79.82 Long term (current) use of aspirin; E03.9 Hypothyroidism, unspecified; Z66 Do not resuscitate; Z99.81 Dependence on supplemental oxygen; Z86.73 Personal history of transient ischemic attack (TIA), and cerebral infarction without residual deficits; Z91.012 Allergy to eggs; M19.09 Primary osteoarthritis, other specified site; E78.00 Pure hypercholesterolemia, unspecified; J20.9 Acute bronchitis, unspecified; N28.9 Disorder of kidney and ureter, unspecified; Z71.6 Tobacco abuse counseling; Z85.118 Personal history of other malignant neoplasm of bronchus and lung; Z95.5 Presence of coronary angioplasty implant and graft; I25.2 Old myocardial infarction; I08.1 Rheumatic disorders of both mitral and tricuspid valves; R91.1 Solitary pulmonary nodule
CPT/HCPCS: 36415; 71045; 71275; 80048; 80053; 82803; 83605; 83880; 84484; 85007; 85025; 87040; 87070; 87077; 87186; 87205; 87581; 87633; 87798; 93005; 93306; 94640; 94760; 94761; 96372; 96374; 96375; 99284; J0456; Q9967

== ENCOUNTER 2021-03-30 19:46 | Emergency (ER) | payer MEDICARE, SELFPAY ==
[2021-03-30] VITALS (7 sets, daily range): BP systolic 100–142; BP diastolic 53–93; PULSE 61–74; RESP 17–18; TEMP 36.3; O2SAT 94–99; BMI 15.7
--- NOTE | 2021-03-30 19:58 | ECG_ITS ---
APPROVED REPORT Exam: Resting ECG HR:69 bpm ECG Measurements Heart Rate 69 AXES TX 152 P 70 QRSd 74 QRS 101 QT 412 T -31 QTc 441 Conclusion Normal sinus rhythm Rightward axis Nonspecific T wave abnormality Abnormal ECG Electronically signed by : Tone Mensah MD 03/31/2021 07:56:45
--- NOTE | 2021-03-30 20:04 | XR_ITS ---
PROCEDURE INFORMATION: Exam: XR Chest Exam date and time: 03/30/2021 8:04 PM Age: 80 years old Clinical indication: Other: Weakness dizzy TECHNIQUE: Imaging protocol: XR of the chest. Views: 1 view. COMPARISON: CR XR CHEST PORTABLE 12/06/2020 6:39 PM FINDINGS: Lungs: Slight hyperinflation. Mild bibasilar atelectasis or scarring. Blunting of the costophrenic angle on the left is chronic. Pleural spaces: See Lungs finding. Heart/Mediastinum: Mild cardiac enlargement. Bones/joints: Unremarkable. IMPRESSION: No focal consolidation
[2021-03-30 20:10] LABS: Basophils # 0.1 K/mm3 (0-0.2); Basophils % 1.6 % (0.1-2.0); Eosinophils # 0.1 K/mm3 (0.0-0.4); Eosinophils % 2.9 % (0.1-12.0); Hematocrit 30.5 % (37.0-47.0); Hemoglobin 9.3 g/dL (12.2-16.2); Lymphocytes # 1.4 K/mm3 (0.7-4.5); Lymphocytes % 33.8 % (10-50); Mean Corpuscular HGB Conc 30.5 g/dL (31.8-35.4); Mean Corpuscular Hemoglobin 24.8 pg (27.0-31.2); Mean Corpuscular Volume 81.5 fl (81-99); Mean Platelet Volume 11.5 fl (7.4-10.4); Monocytes # 0.3 K/mm3 (0.1-1.0); Monocytes % 7.3 % (1.7-9.3); Neutrophils # 2.2 K/mm3 (1.8-7.8); Neutrophils % 54.5 % (37.0-80.0); Platelet Count 122 K/mm3 (142-424); Red Blood Count 3.74 M/mm3 (4.20-5.40); White Blood Count 4.1 K/mm3 (4.8-10.8)
--- NOTE | 2021-03-30 20:14 | CT_ITS ---
PROCEDURE INFORMATION: Exam: CT Head Without Contrast Exam date and time: 03/30/2021 8:14 PM Age: 80 years old Clinical indication: Dizziness and other: Weakness; Additional info: Dizzy TECHNIQUE: Imaging protocol: Computed tomography of the head without contrast. Radiation optimization: All CT scans at this facility use at least one of these dose optimization techniques: automated exposure control; mA and/or kV adjustment per patient size (includes targeted exams where dose is matched to clinical indication); or iterative reconstruction. COMPARISON: [facility] CT HEAD W/O CONTRAST 03/14/2015 5:08 PM FINDINGS: Brain: Mild periventricular hypoattenuation is nonspecific, but most compatible with chronic small vessel ischemia. Cerebral ventricles: Mild ventricular enlargement likely due to volume loss and age appropriate. Paranasal sinuses: Visualized sinuses are unremarkable. No fluid levels. Mastoid air cells: Visualized mastoid air cells are well aerated. Orbital cavity: Punctate foci of air seen in the orbit. Air also seen in the cavernous sinuses. This is probably due to IV access. Clinical correlation recommended. Bones/joints: Unremarkable. No acute fracture. Soft tissues: Unremarkable. Other findings: No reconstructions. IMPRESSION: 1. No acute intracranial pathology 2. Punctate air seen in some venous locations probably due to IV access. Clinical correlation recommended.
[2021-03-30 20:21] LABS: Chloride 106 mmol/L (98-107); Potassium 4.7 mmoL/L (3.5-5.1); Sodium 141 mmol/L (136-145)
[2021-03-30 20:23] LABS: Blood Urea Nitrogen 51 mg/dl (7-17); Creatinine Clearance Estimated 19 mL/min (50-200); Estimated Glomerular Filt Rate 27 ml/min (>60); GFR (African American) 33 ML/MIN (>60)
--- NOTE | 2021-03-30 20:23 | PC.NURSE ---
COVID swab sent
[2021-03-30 20:24] LABS: Alanine Aminotransferase 18 U/L (12-78); Albumin Level 3.9 g/dl (3.5-5.0); Albumin/Globulin Ratio 1.4 (1.1-1.8); Alkaline Phosphatase 102 U/L (38-126); Anion Gap 13.7 mEq/L (5-15); Aspartate Amino Transferase 24 U/L (14-36); Bilirubin,Total 0.5 mg/dl (0.2-1.3); Calcium 8.7 mg/dl (8.4-10.2); Carbon Dioxide 26 mmol/L (22.0-30.0); Globulin 2.7 g/dL (1.3-3.2); Glucose 123 mg/dl (74-100); Total Protein,Serum 6.6 g/dl (6.3-8.2)
[2021-03-30 20:26] LABS: Coronavirus 19, PCR Not Detected (NotDetected); Influenza A, PCR Not Detected (NotDetected); Influenza B, PCR Not Detected (NotDetected)
--- NOTE | 2021-03-30 20:26 | PC.NURSE ---
pt to rad at this time
[2021-03-30 20:30] LABS: C-Reactive Protein 0.9 mg/L (0-4)
[2021-03-30 20:35] LABS: Erythrocyte Sedimentation Rate 19 mm/hr (0-30)
[2021-03-30 20:36] LABS: Troponin I 0.02 ng/ml (0.00-0.034)
[2021-03-30 21:20] LABS: Procalcitonin 0.069 ng/mL (0.0-2.0)
--- NOTE | 2021-03-30 23:18 | XR_ITS ---
PROCEDURE INFORMATION: Exam: XR Right Shoulder Exam date and time: 03/30/2021 11:18 PM Age: 80 years old Clinical indication: Injury or trauma; Fall; Blunt trauma (contusions or hematomas); Right; Injury date: 03/30/2021; Injury details: Fell today pain in RT shoulder TECHNIQUE: Imaging protocol: XR Right shoulder. Views: 2 or more views. COMPARISON: [facility] bone scan whole body 08/11/2018 1:52 PM FINDINGS: Bones/joints: Normal. Soft tissues: Normal. IMPRESSION: No acute findings.
[2021-03-30 23:35] LABS: Troponin I 0.02 ng/ml (0.00-0.034)
--- NOTE | 2021-03-31 00:06 | HMH.EDGENADL ---
ED Disposition Clinical Impression: Dehydration Disposition: Home, Self-Care Condition on Discharge: Good Additional Instructions: Take meds as prescribed. Use assistance with ambulation. Aggresively hydrate. Follow up with MD on Friday. Prescriptions: Cefdinir [Omnicef 300mg Capsule] 300 mg PO BID #20 cap Transmission Status: Received by [facility] Ondansetron [Zofran 4mg ODT] 4 mg PO TIDP PRN 3 Days #12 tab PRN Reason: Nausea And Vomiting Transmission Status: Received by [facility] Referrals: Matthew Farooq MD [Primary Care Provider] - - Critical Care Critical Care Time: No Attestation: On 03/30/21, the high probability of a clinically significant, sudden or life threatening deterioration of the following system(s) required my full and direct attention, intervention and personal management. The time I documented below is in addition to time spent performing reported procedures but includes the following listed in this critical care notation. Medical Decision Making - Andrea Inquiry Pt receiving controlled substance: No Vital Signs: 03/30/21 19:47 03/30/21 20:01 03/30/21 21:09 Temperature 97.4 F L Temperature Source Oral Pulse Rate 67 65 Pulse Rate [Right] 74 Respiratory Rate 18 17 Blood Pressure 142/93 H 100/54 L Blood Pressure [Right Arm] 103/57 L Blood Pressure Mean 109 61 Blood Pressure Mean [Right Arm] 72 Blood Pressure Source Automatic Cuff Blood Pressure Position Supine 02 Sat by Pulse Oximetry 94 L 97 99 Oxygen Delivery Method Nasal Cannula Nasal Cannula Oxygen Flow Rate (LPM) 4 2 03/30/21 21:30 03/30/21 22:01 03/30/21 22:30 Temperature Temperature Source Pulse Rate 63 63 63 Pulse Rate [Right] Respiratory Rate Blood Pressure 107/55 L 109/60 L 112/55 L Blood Pressure [Right Arm] Blood Pressure Mean 72 76 78 Blood Pressure Mean [Right Arm] Blood Pressure Source Blood Pressure Position 02 Sat by Pulse Oximetry 99 97 97 Oxygen Delivery Method Oxygen Flow Rate (LPM) 03/30/21 23:00 03/31/21 00:48 Temperature 98.1 F Temperature Source Oral Pulse Rate 61 71 Pulse Rate [Right] Respiratory Rate 15 Blood Pressure 102/53 L 108/49 L Blood Pressure [Right Arm] Blood Pressure Mean 68 Blood Pressure Mean [Right Arm] Blood Pressure Source Blood Pressure Position 02 Sat by Pulse Oximetry 97 98 Oxygen Delivery Method Room Air Oxygen Flow Rate (LPM) - Lab Data Lab Results 03/30/21 20:04: WBC 4.1 L, RBC 3.74 L, Hgb 9.3 L, Hct 30.5 L, MCV 81.5, MCH 24.8 L, MCHC 30.5 L, RDW 15.0, Plt Count 122 L, MPV 11.5 H, Neut % (Auto) 54.5, Lymph % (Auto) 33.8, [place] % (Auto) 7.3, Eos % (Auto) 2.9, Baso % (Auto) 1.6, Neut # (Auto) 2.2, Lymph # (Auto) 1.4, [place] # (Auto) 0.3, Eos # (Auto) 0.1, Baso # (Auto) 0.1, ESR 19 03/30/21 20:04: Sodium 141, Potassium 4.7, Chloride 106, Carbon Dioxide 26, Anion Gap 13.7, BUN 51 H, Creatinine 1.80 H, Estimated Creat Clear 19, Estimated GFR 27 L, Est GFR ( Amer) 33 L, Glucose 123 H, Calcium 8.7, Total Bilirubin 0.5, AST 24, ALT 18, Alkaline Phosphatase 102, Troponin I 0.02, C-Reactive Protein 0.9, Total Protein 6.6, Albumin 3.9, Globulin 2.7, Albumin/Globulin Ratio 1.4, Procalcitonin 0.069 03/30/21 20:21: SARS-CoV-2 (PCR) Not detected, Influenza A Untype (PCR) Not detected, Influenza Type B (PCR) Not detected 03/30/21 23:09: Troponin I 0.02 Result diagrams: 03/30/21 20:04 03/30/21 20:04 Orders (Tests/Meds): ED MEDICATIONS Generic Name Dose Route Start Last Admin Trade Name Freq PRN Reason Stop Dose Admin Lactated Ringer's 1,000 mls @ 999 mls/hr 03/30/21 20:15 03/30/21 20:17 Lactated Ringer's 1000 Ml Bag IV 03/30/21 21:15 999 mls/hr .Q1H1M ROSELINE Administration Discontinued Medications Generic Name Dose Route Start Last Admin Trade Name Freq PRN Reason Stop Dose Admin Ondansetron HCl 4 mg 03/30/21 20:14 03/30/21 20:17
[2021-03-31 00:48] VITALS: BP 108/49; PULSE 71; RESP 15; TEMP 36.7; O2SAT 98
== END 2021-03-31 00:30 | disposition home or self-care (01) ==
PROVIDERS: Emergency Provider Emergency Medicine; PCP Emergency Medicine
DX: E86.0 Dehydration (principal); J44.9 Chronic obstructive pulmonary disease, unspecified; I25.10 Atherosclerotic heart disease of native coronary artery without angina pectoris; I25.2 Old myocardial infarction; I10 Essential (primary) hypertension; E78.5 Hyperlipidemia, unspecified; K21.9 Gastro-esophageal reflux disease without esophagitis; E03.9 Hypothyroidism, unspecified; F17.210 Nicotine dependence, cigarettes, uncomplicated; Z85.118 Personal history of other malignant neoplasm of bronchus and lung; Z11.52 Encounter for screening for COVID-19
CPT/HCPCS: 36415; 70450; 71045; 73030; 80053; 84145; 84484; 85025; 85651; 86140; 93005; 96365; 96375; 99284; J2405; U0003

== ENCOUNTER 2021-04-01 11:23 | Emergency (ER) | payer MEDICARE, SELFPAY ==
[2021-04-01] VITALS (12 sets, daily range): BP systolic 83–116; BP diastolic 50–64; PULSE 61–70; RESP 12–20; TEMP 36.3–36.4; O2SAT 77–100; BMI 16.4
--- NOTE | 2021-04-01 12:02 | HMH.EDGENADL ---
ED Disposition Clinical Impression: Failure to thrive in adult Disposition: Home, Self-Care Condition on Discharge: Fair Additional Instructions: Oliva your oxygen at home as prescribed. Follow-up with your primary care physician in about 3 days. Return to the emergency department if you feel worse in any way. Your work-up today showed some mild to moderate dehydration. There is no evidence of urinary tract infection or pneumonia or acute intra-abdominal disease. Please eat regular meals and hydrate yourself well. Referrals: Matthew Farooq MD [Primary Care Provider] - 3 days - Critical Care Critical Care Time: No Attestation: On 04/01/21, the high probability of a clinically significant, sudden or life threatening deterioration of the following system(s) required my full and direct attention, intervention and personal management. The time I documented below is in addition to time spent performing reported procedures but includes the following listed in this critical care notation. Medical Decision Making - Medical Records Medical records reviewed: Yes: I reviewed the patient's medical records. - Andrea Inquiry Pt receiving controlled substance: No Vital Signs: 04/01/21 11:23 04/01/21 11:30 04/01/21 12:00 Temperature 97.5 F L Temperature Source Oral Pulse Rate 66 64 Pulse Rate [Right] 68 Respiratory Rate 20 20 14 Blood Pressure 92/60 L 89/50 L Blood Pressure [Right Arm] 102/50 L Blood Pressure Mean 73 64 Blood Pressure Mean [Right Arm] 67 02 Sat by Pulse Oximetry 94 L 98 96 Oxygen Delivery Method Nasal Cannula Oxygen Flow Rate (LPM) 4 04/01/21 12:26 04/01/21 12:27 04/01/21 12:30 Temperature Temperature Source Pulse Rate 67 67 65 Pulse Rate [Right] Respiratory Rate 17 20 14 Blood Pressure 85/53 L 106/60 L Blood Pressure [Right Arm] Blood Pressure Mean 55 63 75 Blood Pressure Mean [Right Arm] 02 Sat by Pulse Oximetry 94 L 91 L Oxygen Delivery Method Oxygen Flow Rate (LPM) 04/01/21 12:45 04/01/21 14:00 04/01/21 15:08 Temperature Temperature Source Pulse Rate 61 68 68 Pulse Rate [Right] Respiratory Rate 12 14 15 Blood Pressure 110/56 L 116/64 83/53 L Blood Pressure [Right Arm] Blood Pressure Mean Blood Pressure Mean [Right Arm] 02 Sat by Pulse Oximetry 97 100 Oxygen Delivery Method Nasal Cannula Nasal Cannula Oxygen Flow Rate (LPM) 4 4 04/01/21 15:19 04/01/21 15:30 Temperature Temperature Source Pulse Rate 66 Pulse Rate [Right] Respiratory Rate 13 18 Blood Pressure 108/58 L 97/56 L Blood Pressure [Right Arm] Blood Pressure Mean Blood Pressure Mean [Right Arm] 02 Sat by Pulse Oximetry 85 L 77 L Oxygen Delivery Method Nasal Cannula Nasal Cannula Oxygen Flow Rate (LPM) 4 4 - Lab Data Lab results reviewed: Yes: I reviewed the patient's lab results. Lab Results 04/01/21 11:15: WBC 4.2 L, RBC 3.69 L, Hgb 9.2 L, Hct 30.5 L, MCV 82.6, MCH 25.0 L, MCHC 30.2 L, RDW 15.0, Plt Count 111 L, MPV 10.7 H, Neut % (Auto) 70.7, Lymph % (Auto) 19.3, [place] % (Auto) 8.7, Eos % (Auto) 0.4, Baso % (Auto) 0.9, Neut # (Auto) 3.0, Lymph # (Auto) 0.8, [place] # (Auto) 0.4, Eos # (Auto) 0.0, Baso # (Auto) 0.0 04/01/21 11:15: Sodium 138, Potassium 5.3 H, Chloride 105, Carbon Dioxide 25, Anion Gap 13.3, BUN 57 H, Creatinine 2.30 H D, Estimated Creat Clear 15, Estimated GFR 20 L, Est GFR ( Amer) 25 L D, Glucose 96, Calcium 8.7, Total Bilirubin 1.1, AST 212 H D, ALT 127 H D, Alkaline Phosphatase 122, Total Protein 6.1 L, Albumin 3.7, Globulin 2.4, Albumin/Globulin Ratio 1.5, Lipase 32 04/01/21 12:20: Urine Color Yellow, Urine Appearance Clear, Urine pH 5.5, Ur Specific [place] >= 1.030, Urine Protein 1+, Urine Glucose (UA) Negative, Urine Ketones Negative, Urine Blood Negative, Urine Nitrate Negative, Urine Bilirubin 1+ A, Urine Urobilinogen 1.0, Ur Leukocyte Esterase Negative, Urine RBC None, Urine WBC None, Ur Squamous Epith Cells Occas
--- NOTE | 2021-04-01 12:03 | XR_ITS ---
PROCEDURE INFORMATION: Exam: XR Chest Exam date and time: 04/01/2021 12:03 PM Age: 80 years old Clinical indication: Shortness of breath and other: Generalized weakness TECHNIQUE: Imaging protocol: XR of the chest. Views: 1 view. COMPARISON: CR XR CHEST PORTABLE 03/30/2021 8:14 PM FINDINGS: Lungs: Stable left atelectasis or scarring at the base. No focal consolidation. Pleural spaces: Stable scarring left costophrenic sulcus. No pneumothorax. Heart/Mediastinum: Mild cardiomegaly. Bones/joints: Unremarkable. IMPRESSION: Stable left atelectasis or scarring at the base. No focal consolidation.
[2021-04-01 12:15] LABS: Basophils % 0.9 % (0.1-2.0); Chloride 105 mmol/L (98-107); Eosinophils % 0.4 % (0.1-12.0); Hematocrit 30.5 % (37.0-47.0); Hemoglobin 9.2 g/dL (12.2-16.2); Lymphocytes # 0.8 K/mm3 (0.7-4.5); Lymphocytes % 19.3 % (10-50); Mean Corpuscular HGB Conc 30.2 g/dL (31.8-35.4); Mean Corpuscular Volume 82.6 fl (81-99); Mean Platelet Volume 10.7 fl (7.4-10.4); Monocytes # 0.4 K/mm3 (0.1-1.0); Monocytes % 8.7 % (1.7-9.3); Neutrophils % 70.7 % (37.0-80.0); Platelet Count 111 K/mm3 (142-424); Potassium 5.3 mmoL/L (3.5-5.1); Red Blood Count 3.69 M/mm3 (4.20-5.40); Sodium 138 mmol/L (136-145); White Blood Count 4.2 K/mm3 (4.8-10.8)
--- NOTE | 2021-04-01 12:15 | PC.NURSE ---
Pt agreeable to straight cath for urine sample.
[2021-04-01 12:18] LABS: Alanine Aminotransferase 127 U/L (12-78); Albumin Level 3.7 g/dl (3.5-5.0); Albumin/Globulin Ratio 1.5 (1.1-1.8); Alkaline Phosphatase 122 U/L (38-126); Anion Gap 13.3 mEq/L (5-15); Aspartate Amino Transferase 212 U/L (14-36); Bilirubin,Total 1.1 mg/dl (0.2-1.3); Blood Urea Nitrogen 57 mg/dl (7-17); Calcium 8.7 mg/dl (8.4-10.2); Carbon Dioxide 25 mmol/L (22.0-30.0); Creatinine Clearance Estimated 15 mL/min (50-200); Estimated Glomerular Filt Rate 20 ml/min (>60); GFR (African American) 25 ML/MIN (>60); Globulin 2.4 g/dL (1.3-3.2); Glucose 96 mg/dl (74-100); Lipase 32 U/L (23-300); Total Protein,Serum 6.1 g/dl (6.3-8.2)
[2021-04-01 12:30] LABS: Microscopic, Urine URINE MICROSCOPIC (MICROSCOPIC)
--- NOTE | 2021-04-01 12:30 | PC.NURSE ---
BP 85/53, Dr. Alejandra notified, 1L NS ordered.
[2021-04-01 12:31] LABS: Appearance,Urine CLEAR (Clear); Blood, Urine Negative (Negative); Color,Urine YELLOW (Yellow); Glucose,Urine (UA) Negative (Negative); Ketones,Urine Negative (Negative); Leukocyte Esterase,Urine Negative (Negative); Nitrate,Urine Negative (Negative); PH,Urine 5.5 (5.0-8.5); Protein,Urine 1+ (Negative); Specific Gravity, Urine >= 1.030 (1.005-1.030)
[2021-04-01 12:35] LABS: Bilirubin,Urine 1+ (Negative)
--- NOTE | 2021-04-01 12:39 | PC.NURSE ---
Dr. Alejandra at bedside with ultrasound.
[2021-04-01 12:40] LABS: Squamous Epithelial Cell,Urine Occasional #/hpf (0-5)
--- NOTE | 2021-04-01 13:07 | CT_ITS ---
PROCEDURE INFORMATION: Exam: CT Abdomen And Pelvis Without Contrast Exam date and time: 04/01/2021 1:07 PM Age: 80 years old Clinical indication: Other: Anorexia , elevated lfts; Prior surgery; Additional info: Anorexia, elevated lfts TECHNIQUE: Imaging protocol: Computed tomography of the abdomen and pelvis without contrast. Radiation optimization: All CT scans at this facility use at least one of these dose optimization techniques: automated exposure control; mA and/or kV adjustment per patient size (includes targeted exams where dose is matched to clinical indication); or iterative reconstruction. COMPARISON: [facility] CT abdomen pelvis wo con 07/08/2018 7:40 AM FINDINGS: Lungs: Atelectasis in the right lower lobe. Pleural spaces: Moderate right pleural effusion and small left pleural effusion. Liver: Lobulated hyperdense lesion posterior to the right hepatic lobe measures 2.2 x 1.1 cm, stable since previous CT 2018. No parenchymal lesion identified although evaluation limited without intravenous contrast. Nodular contour of the liver suggesting cirrhosis. Gallbladder and bile ducts: Previous cholecystectomy. Pancreas: Normal. No ductal dilation. Spleen: Splenomegaly measures 13.7 cm in craniocaudal dimension. Adrenal glands: Normal. No mass. Kidneys and ureters: Simple appearing right cortical renal cyst in the midpole measures 2.0 x 1.7 cm. No hydronephrosis. Stomach and bowel: Unremarkable. No obstruction. No mucosal thickening. Appendix: No evidence of appendicitis. Intraperitoneal space: Mild abdominal and pelvic ascites. Vasculature: Stable dilatation of the infrarenal abdominal aorta measuring 2.7 cm with peripheral intraluminal plaque. Lymph nodes: Unremarkable. No enlarged lymph nodes. Urinary bladder: Unremarkable as visualized. Reproductive: Unremarkable as visualized. Bones/joints: Stable disc bulge at L4-L5 with moderate canal stenosis. Soft tissues: Unremarkable. IMPRESSION: 1. Moderate right pleural effusion and small left pleural effusion. 2. Lobulated hyperdense lesion posterior to the right hepatic lobe measures 2.2 x 1.1 cm, stable since previous CT 2018. No parenchymal lesion identified although evaluation limited without intravenous contrast. 3. Nodular contour of the liver suggesting cirrhosis. 4. Mild abdominal and pelvic ascites. 5. Splenomegaly measures 13.7 cm in craniocaudal dimension. 6. Stable dilatation of the infrarenal abdominal aorta measuring 2.7 cm with peripheral intraluminal plaque. 7. Stable disc bulge at L4-L5 with moderate canal stenosis. COMMENTS: Consistent with the [employer]'s Incidental Findings Committee white paper (J Am Emi Radiol 2018): Any incidental renal lesion less than 1 cm or classified as too small to characterize, or any incidental cystic renal lesion characterized as simple-appearing, is likely benign. No follow-up imaging is recommended for these lesions per consensus recommendations based on imaging criteria.
--- NOTE | 2021-04-01 13:33 | PC.NURSE ---
Pt back from CT at this time.
--- NOTE | 2021-04-01 14:17 | PC.NURSE ---
Pt tried to stand/ambulate, both legs very shakey, stating i'm tired & cold. Lunch tray ordered from dietary.
--- NOTE | 2021-04-01 14:32 | PC.NURSE ---
Pt sitting up in bed eating a lunch tray.
--- NOTE | 2021-04-01 15:10 | PC.NURSE ---
BP 80/50s, 83% on 4L. Dr. Alejandra notified & additional 1L NS ordered.
--- NOTE | 2021-04-01 15:26 | PC.NURSE ---
Dr. Alejandra updating son POA at bedside.
[2021-04-01 15:31] LABS: ABG Base Excess -6.1 mmol/L (-2.4-2.3); ABG HCO3 22.1 mmhg (22.0-26.0); ABG Oxygen Saturation 16 % (90-100); ABG TCO2 23.9 mmhg (23-27)
[2021-04-01 15:32] LABS: ABG PCO2 59.2 mmhg (35.0-45.0); ABG PH 7.19 mmol/L (7.35-7.45); Allen's Test Acceptable; Oxygen 4L %; Source Left Radial
[2021-04-01 15:33] LABS: ABG PO2 18.1 mmhg (80-100)
--- NOTE | 2021-04-01 15:33 | PC.NURSE ---
Critical lab values from RT, states venous BG, pH 7.19, CO2 59, HCO 22. Dr. Alejandra notified, does not want redraw for ABG.
[2021-04-01 15:39] LABS: Ammonia < 9 umol/L (9-30)
[2021-04-01 15:55] LABS: Coronavirus 19, PCR Not Detected (NotDetected); Influenza A, PCR Not Detected (NotDetected); Influenza B, PCR Not Detected (NotDetected)
[2021-04-01 16:16] LABS: Amphetamine/Metha Screen,Urine Negative ng/ml (<1000); Barbiturates Screen,Urine Negative ng/ml (<200)
[2021-04-01 16:17] LABS: Benzodiazepines Screen,Urine Negative ng/ml (<200)
[2021-04-01 16:18] LABS: Cannabinoid Screen,Urine Negative ng/ml (<50); Cocaine Screen,Urine Negative ng/ml (<300)
[2021-04-01 16:19] LABS: Methadone Screen,Urine Negative ng/ml (<300); Opiate Screen,Urine Negative ng/ml (<300)
[2021-04-01 16:20] LABS: Phencyclidine Screen,Urine Negative ng/ml (<25)
== END 2021-04-01 17:00 | disposition home or self-care (01) ==
PROVIDERS: Emergency Provider Emergency Medicine; PCP Emergency Medicine
DX: R62.7 Adult failure to thrive (principal); E86.0 Dehydration; Z85.118 Personal history of other malignant neoplasm of bronchus and lung; I50.9 Heart failure, unspecified; I25.10 Atherosclerotic heart disease of native coronary artery without angina pectoris; J44.9 Chronic obstructive pulmonary disease, unspecified; I25.2 Old myocardial infarction; I10 Essential (primary) hypertension; E78.5 Hyperlipidemia, unspecified; K21.9 Gastro-esophageal reflux disease without esophagitis; E03.9 Hypothyroidism, unspecified; F17.210 Nicotine dependence, cigarettes, uncomplicated; Z79.899 Other long term (current) drug therapy
CPT/HCPCS: 71045; 74176; 80053; 80305; 81001; 82140; 82803; 83690; 85025; 96365; 96367; 99283; U0003

== ENCOUNTER 2021-04-02 14:00 | Emergency (ER) | payer MEDICARE, SELFPAY ==
[2021-04-02 14:00] VITALS: BMI 21.9
--- NOTE | 2021-04-02 14:00 | PC.NURSE ---
[facility] responded to pt's home for unresponsive with agonal breathing. En route EMS lost pulses at 1358 in asystole. 18G LAC placed ANESTHESIOLOGIST PHYSICIAN. Meds received ANESTHESIOLOGIST PHYSICIAN: 1 epi 1400- pt arrives to trauma bay 3 via [facility] with BVM & CPR in progress 1402- 1 epi, 1 bicarb given 1403- no pulse, asystole, CPR resumed 1405- 1 epi given, 20G RAC placed by November RN 1406- weak carotid pulse, wide complex ECG, compressions stopped. ETT [address] Alejandra, [address] [facility]. BG 101. 1407- 1 bicarb given 1410- no palpable pulses, CPR initiated, 1 epi given 1412- no pulses, PEA on monitor, CPR resumed. 1413- 1 epi given 1414- no palpable/doppler pulse, CPR resumed 1415- 1 bicarb given 1416- no pulse, PEA, 1 epi, CPR resumed 1418- no pulse, no left ventricle contraction per Dr. Alejandra on ultrasound, CPR resumed 1420- 1 epi given 1421- no palpable pulse, no heart contractility on US per Dr. Alejandra 1422- time of called by Dr. Alejandra
--- NOTE | 2021-04-02 14:33 | HMH.EDCPR ---
ED Disposition Clinical Impression: Myocardial infarction complications, PEA (Pulseless electrical activity) Disposition: Condition on Discharge: Referrals: Matthew Farooq MD [Primary Care Provider] - - Critical Care Critical Care Time: No Attestation: On 04/02/21, the high probability of a clinically significant, sudden or life threatening deterioration of the following system(s) required my full and direct attention, intervention and personal management. The time I documented below is in addition to time spent performing reported procedures but includes the following listed in this critical care notation. [facility] Code Documentation - Arrest Information Outside of Hospital The Code Document Section documentation for [id number] Mica Steve was populated with data that defaulted in from the scrap metal burner in the Code Assessment on f_Reg Service Date] to provide within this report, the status and treatment of the patient in the ED during a Code. This documentation will be supplemented with my direct findings within the body of the report. Date Treatment Initiated: 04/02/21 Treatment Initiated By: EMS Arrest Witnessed: Yes - ALS Code Inititation ALS Initiated By: EMS ALS Type: ACLS - Patient Condition At Code Start Condition of Patient at Start of Code: Pulseless, Unconscious Monitoring Devices: ECG Monitor - Circulation Initial Cardiac Rhythm: Asystole - Oxygenation Oxygen Breathing Status: Agonal Oxygen Delivery Method: Bag-Valve Mask - Assisted Ventilation ETT Insertion Time: 14:05 (The patient was intubated by me) ETT Size: 8.0 ETT Insertion Site: Oral Endotracheal ETT Tube Inserted By: Dr Alejandra - Code End Time Code Ended: 14:22 Patient Successfully Resuscitated: No Reason Code Ended: - Medical Futility (The patient underwent multiple rounds of CPR, epinephrine, sodium bicarbonate. Pulse was regained once and was very thready. The monitor showed sinus rhythm without pulse. I performed a bedside ultrasound. It showed partial cardiac contractility without any ventricular motion on the left side..) Family Members Present During Code: No Medical Decision Making - Medical Records Medical records reviewed: Yes: I reviewed the patient's medical records. - Andrea Inquiry Pt receiving controlled substance: No Andrea was queried for this patient: No Orders (Tests/Meds): ED MEDICATIONS Discontinued Medications Generic Name Dose Route Start Last Admin Trade Name Freq PRN Reason Stop Dose Admin Epinephrine HCl 1 mg 04/02/21 15:22 04/02/21 14:02 Epinephrine 0.1 Mg/Ml 10ml Syringe (Crash Cart) IV 04/02/21 15:23 1 mg ONCE ONE Administration Epinephrine HCl 1 mg 04/02/21 15:22 04/02/21 14:05 Epinephrine 0.1 Mg/Ml 10ml Syringe (Crash Cart) IV 04/02/21 15:23 1 mg ONCE ONE Administration Epinephrine HCl 1 mg 04/02/21 15:22 04/02/21 14:10 Epinephrine 0.1 Mg/Ml 10ml Syringe (Crash Cart) IV 04/02/21 15:23 1 mg ONCE ONE Administration Epinephrine HCl 1 mg 04/02/21 15:22 04/02/21 14:13 Epinephrine 0.1 Mg/Ml 10ml Syringe (Crash Cart) IV 04/02/21 15:23 1 mg ONCE ONE Administration Epinephrine HCl 1 mg 04/02/21 15:22 04/02/21 14:16 Epinephrine 0.1 Mg/Ml 10ml Syringe (Crash Cart) IV 04/02/21 15:23 1 mg ONCE ONE Administration Epinephrine HCl 1 mg 04/02/21 15:23 04/02/21 14:20 Epinephrine 0.1 Mg/Ml 10ml Syringe (Crash Cart) IV 04/02/21 15:24 1 mg ONCE ONE Administration Sodium Bicarbonate 50 meq 04/02/21 15:27 04/02/21 14:02 Sodium Bicarb 8.4% 50ml Syringe (Crash Cart) IV 04/02/21 15:28 50 meq ONCE ONE Administration Sodium Bicarbonate 50 meq 04/02/21 15:28 04/02/21 14:07 Sodium Bicarb 8.4% 50ml Syringe (Crash Cart) IV 04/02/21 15:29 50 meq ONCE ONE Administration Sodium Bicarbonate 50 meq 04/02/21 15:28 04/02/21 14:15 Sodium Bicarb 8.4% 50ml Syringe (Crash Cart) IV 04/02/21 15:29 50
--- NOTE | 2021-04-02 14:37 | PC.NURSE ---
Family in triage room, Dr. Alejandra notified.
--- NOTE | 2021-04-02 14:45 | PC.NURSE ---
Son at bedside.
--- NOTE | 2021-04-02 14:45 | PC.NURSE ---
ANGELA called at this time.
--- NOTE | 2021-04-02 14:51 | PC.NURSE ---
ANGELA referral # [id number], Pt is not a candidate for donation per rep Payton Gomes.
--- NOTE | 2021-04-02 14:55 | PC.NURSE ---
Spoke with poultry service technician office. Will be to get pt
[2021-04-02 15:55] VITALS: BP 00/00; PULSE 0; RESP 0; TEMP -17.7; TEMP 0
== END 2021-04-02 16:00 | disposition expired ==
PROVIDERS: Emergency Provider Emergency Medicine; PCP Emergency Medicine
DX: I46.9 Cardiac arrest, cause unspecified (principal); I23.8 Other current complications following acute myocardial infarction; I25.10 Atherosclerotic heart disease of native coronary artery without angina pectoris; J44.9 Chronic obstructive pulmonary disease, unspecified; E78.5 Hyperlipidemia, unspecified; I10 Essential (primary) hypertension; I25.2 Old myocardial infarction; K21.9 Gastro-esophageal reflux disease without esophagitis; E03.9 Hypothyroidism, unspecified; F17.210 Nicotine dependence, cigarettes, uncomplicated; Z85.118 Personal history of other malignant neoplasm of bronchus and lung
CPT/HCPCS: 31500; 96374; 96375; 99283